=== PATIENT | male | born 1975 | race Caucasian/White ===

== ENCOUNTER 2017-01-07 03:11 | Emergency (ER) | payer MEDICAID, OTHER ==
[~2017-01-07] VITALS: Ht 185.4 cm; Wt 135.6 kg
[~2017-01-07 03:11] MED LIST: BUTA-91; LANS15CA21; RANI150C3; [UNRECOGNIZED DRUG - OTHER]
[2017-01-07 03:28] VITALS: BP 140/88
[2017-01-07 04:14] LABS: Basophils # (auto) 0.1 uL; Basophils % (auto) 0.8 % (0.0-2.0); Eosinophils # (auto) 0.4 uL; Eosinophils % (auto) 4.9 % (0.0-7.0); Hematocrit 47.5 % (41.0-53.0); Hemoglobin 16.4 g/dL (13.5-17.5); Lymphocytes # (auto) 1.9 uL; Lymphocytes % (auto) 25.9 % (10.0-50.0); Mean Corpuscular Hemoglobin 30.6 pg (28.0-32.0); Mean Corpuscular Hgb Conc. 34.5 g/dL (32.0-36.0); Mean Corpuscular Volume 88.7 fL (80.0-100.0); Mean Platelet Volume 8.6 fL (7.4-10.4); Monocytes # (auto) 0.7 uL; Monocytes % (auto) 9.4 % (0.0-12.0); Neutrophils # (auto) 4.4 uL; Platelet Count (auto) 291 10^3/uL (140-450); Red Cell Distribution Width 12.9 % (11.6-16.0); White Blood Cell 7.4 10^3/uL (4.4-10.8)
[2017-01-07 04:23] LABS: Albumin 3.9 g/dL (3.4-5.0); BUN/Creatinine Ratio 10.3; Calcium 8.8 mg/dL (8.5-10.1)
[2017-01-07 04:25] LABS: Bilirubin, Total 0.3 mg/dL (0.2-1.0); Total Protein 7.3 g/dL (6.4-8.2)
== END 2017-01-07 06:00 | disposition left against medical advice (07) ==
LOC: ER 03:17
DX: G43.909 Migraine, unspecified, not intractable, without status migrainosus (principal); Z53.21 Procedure and treatment not carried out due to patient leaving prior to being seen by health care provider; R11.2 Nausea with vomiting, unspecified
CPT/HCPCS: 36415; 80053; 85025

== ENCOUNTER 2018-11-29 10:24 | Emergency (ER) | payer OTHER ==
[~2018-11-29] VITALS: Ht 188 cm; Wt 122.5 kg
[2018-11-29 10:40] VITALS: BP 131/77
[2018-11-29] MEDS ORDERED: ACETAMINOPHEN 500 MG TAB PO ONE (11:45)
[2018-11-29] MEDS ORDERED: KETOROLAC TROMETH 60MG/2ML VIAL IM ONE (11:45)
== END 2018-11-29 12:00 | disposition home or self-care (01) ==
LOC: ER 10:24
DX: S20.211A Contusion of right front wall of thorax, initial encounter (principal); Z87.891 Personal history of nicotine dependence; Z88.6 Allergy status to analgesic agent; Z88.8 Allergy status to other drugs, medicaments and biological substances; W51.XXXA Accidental striking against or bumped into by another person, initial encounter; Y93.89 Activity, other specified; Y92.098 Other place in other non-institutional residence as the place of occurrence of the external cause; Y99.8 Other external cause status
CPT/HCPCS: 71101

== ENCOUNTER 2023-09-23 12:57 | Inpatient (IN) | payer OTHER ==
[~2023-09-23] VITALS: Ht 188 cm; Wt 127.0 kg
[~2023-09-23 12:57] MED LIST changes: -LANS15CA21; +LANS15CA37
[2023-09-23 14:02] LABS: Basophils # (auto) 0.1 10 ^3/uL (0-0.2); Basophils % (auto) 0.8 % (0.0-2.0); Eosinophils # (auto) 0.3 10 ^3/uL (0-0.8); Eosinophils % (auto) 3.5 % (0.0-7.0); Hematocrit 38.5 % (41.0-53.0); Hemoglobin 12.9 g/dL (13.5-17.5); Lymphocytes # (auto) 0.9 10 ^3/uL (0.4-5.4); Lymphocytes % (auto) 10.4 % (10.0-50.0); Mean Corpuscular Hemoglobin 33.1 pg (28.0-32.0); Mean Corpuscular Hgb Conc. 33.6 g/dL (32.0-36.0); Mean Corpuscular Volume 98.5 fL (80.0-100.0); Monocytes # (auto) 1.1 10 ^3/uL (0-1.3); Monocytes % (auto) 13.6 % (0.0-12.0); Neutrophils % (auto) 71.7 % (37.0-80.0); Red Blood Cells 3.91 10^6/uL (4.5-5.90); Red Cell Distribution Width 13.2 % (11.8-14.3); White Blood Cell 8.4 10^3/uL (4.4-10.8)
[2023-09-23 14:16] LABS: Alanine Aminotransferase 20 U/L (7-40); Albumin 3.4 g/dL (3.2-4.8); Alkaline Phosphatase 461 U/L (46-116); Anion Gap 10 (5-15); Aspartate Aminotransferase 41 U/L (13-40); BUN/Creatinine Ratio 9.9 (10.0-20.0); Blood Urea Nitrogen 30 mg/dL (9-23); Calcium 9.3 mg/dL (8.7-10.4); Carbon Dioxide 22 mmol/L (20-30); Chloride 106 mmol/L (98-107); Glucose 107 mg/dL (74-106); INR 1.09 (0.9-1.15); Lipase 29 U/L (12-53); Magnesium 1.8 mg/dL (1.6-2.6); Partial Thromboplastin Time 21.1 SEC (24.5-34.5); Potassium 4.4 mmol/L (3.5-5.1); Prothrombin Time 11.4 sec (9.3-11.8); Sodium 138 mmol/L (136-145)
[2023-09-23 14:17] LABS: Bilirubin, Total 2.1 mg/dL (0.2-1.0); Total Protein 7.5 g/dL (5.7-8.2)
[2023-09-23 14:19] LABS: Lactic Acid w/Reflex 2.1 mmol/L (0.4-2.0)
[2023-09-23] MEDS ORDERED: NITROGLYCERIN 0.4 MG SL TAB SL PRN (16:30)
[2023-09-23] MEDS ORDERED: ACETAMINOPHEN 325 MG TAB PO PRN (16:30)
[2023-09-23] MEDS ORDERED: HYDROcodone-ACET 5/325MG TAB PO PRN (16:30)
[2023-09-23] MEDS ORDERED: LACTULOSE 20Gm/30ML SOLN PO PRN (16:30)
[2023-09-23] MEDS ORDERED: ONDANSETRON HCL 4 MG/2 ML VIAL IV PRN (16:30)
[2023-09-23] MEDS ORDERED: MORPHINE SULFATE INJ 2 MG/ml SYRG IV PRN ×2 (16:30)
[2023-09-24 02:50] VITALS: PULSE 92; RESP 11; O2SAT 99
[2023-09-24 07:35] VITALS: PULSE 115; RESP 18; O2SAT 98
[2023-09-24] MEDS ORDERED: SODIUM CHLORIDE 0.9% 1,000 ML IV SCH (11:15)
[2023-09-24 11:50] LABS: Phosphorus 3.5 mg/dL (2.4-5.1)
[2023-09-24 19:05] VITALS: PULSE 102; RESP 14; O2SAT 98
[2023-09-24 20:52] LABS: Urine Epithelial Cast None Seen /hpf (<5)
[2023-09-24 21:11] LABS: Sodium Urine < 10 mmol/L (40-220)
[2023-09-24 21:16] LABS: Protein, Urine 30.7 mg/dL (0.0-11.9)
[2023-09-24 21:17] LABS: Amphetamine Screen, Urine Neg (NEGATIVE); Benzodiazephine Screen, Urine Neg (NEGATIVE)
[2023-09-24 21:18] LABS: Barbiturate Scree,Urine Neg (NEGATIVE); Cannabinoid Screen, Urine Neg (NEGATIVE); Cocaine Screen, Urine Neg (NEGATIVE); Creatinine, Urine 180.62 mg/dL (30.0-125.0); Opiate Scree,Urine Pos (NEGATIVE); Phencyclidine Screen, Urine Neg (NEGATIVE); Urine Protein/Creatinine Ratio 0.17
[2023-09-24 21:19] LABS: Urine Bacteria NONE SEEN /hpf (None Seen); Urine Blood Negative /uL (Negative); Urine Clarity Clear (Clear); Urine Color Yellow (Yellow); Urine Hyaline Cast FEW /lpf (0 - 2); Urine Protein, UAD Negative (Negative); Urine Specific Gravity 1.019 (1.001-1.035); Urine WBC <1 /hpf (0 - 3); Urine pH 5.5 (5.0-8.0)
[2023-09-25] MEDS ORDERED: HYDROcodone-ACET 5/325MG TAB PO PRN (02:00)
[2023-09-25] MEDS ORDERED: NITROGLYCERIN 0.4 MG SL TAB SL PRN (02:00)
[2023-09-25] MEDS ORDERED: ONDANSETRON HCL 4 MG/2 ML VIAL IV PRN (02:00)
[2023-09-25] MEDS ORDERED: ACETAMINOPHEN 325 MG TAB PO PRN (02:00)
[2023-09-25] MEDS ORDERED: MORPHINE SULFATE INJ 2 MG/ml SYRG IV PRN ×2 (02:00)
[2023-09-25] MEDS ORDERED: LACTULOSE 20Gm/30ML SOLN PO PRN (02:00)
[2023-09-25 08:00] VITALS: PULSE 122; RESP 16; TEMP 97.9; O2SAT 99
[2023-09-25 14:00] VITALS: BP 115/68; PULSE 116; RESP 18; O2SAT 94
== END 2023-09-25 15:44 | disposition home health service (06) | DRG 432 ==
LOC: ER 12:57 → TELE 15:44 → OVERFLOW 16:47 → TELE 22:54 → UNDODISIN 09-24 01:45
PROVIDERS: ADMIT Internal Medicine; ATTEND Internal Medicine
PROC: 0W9G3ZZ Drainage of Peritoneal Cavity, Percutaneous Approach (ICD-10-PCS; principal; 2023-09-25)
DX: K70.31 Alcoholic cirrhosis of liver with ascites (principal); G93.41 Metabolic encephalopathy; K76.7 Hepatorenal syndrome; N17.9 Acute kidney failure, unspecified; J98.11 Atelectasis; K76.82 Hepatic encephalopathy; N18.30 Chronic kidney disease, stage 3 unspecified; S09.90XA Unspecified injury of head, initial encounter; R56.9 Unspecified convulsions; E66.9 Obesity, unspecified; X58.XXXA Exposure to other specified factors, initial encounter; F17.210 Nicotine dependence, cigarettes, uncomplicated; Z88.8 Allergy status to other drugs, medicaments and biological substances; Z79.899 Other long term (current) drug therapy; Z68.35 Body mass index [BMI] 35.0-35.9, adult; Y93.89 Activity, other specified; Y92.89 Other specified places as the place of occurrence of the external cause; Y99.8 Other external cause status
CPT/HCPCS: 36415; 70450; 74176; 76775; 80053; 80307; 80320; 81001; 82140; 82306; 82550; 82570; 82962; 83605; 83690; 83735; 83970; 84100; 84156; 84300; 85025; 85610; 85730; 86850; 86900; 86901; 87040; 93005; 97163; 99291; G0378; J2405

== ENCOUNTER 2023-10-19 14:08 | Inpatient (IN) | payer OTHER, MEDICAID ==
[~2023-10-19] VITALS: Ht 177.8 cm; Wt 114.6 kg
[2023-10-19 14:33] LABS: Basophils # (auto) 0 10 ^3/uL (0-0.2); Basophils % (auto) 0.5 % (0.0-2.0); Eosinophils # (auto) 0.2 10 ^3/uL (0-0.8); Eosinophils % (auto) 3.4 % (0.0-7.0); Hematocrit 38.4 % (41.0-53.0); Hemoglobin 12.6 g/dL (13.5-17.5); Lymphocytes # (auto) 0.7 10 ^3/uL (0.4-5.4); Lymphocytes % (auto) 9.9 % (10.0-50.0); Mean Corpuscular Hgb Conc. 32.8 g/dL (32.0-36.0); Mean Corpuscular Volume 94.5 fL (80.0-100.0); Monocytes # (auto) 1.1 10 ^3/uL (0-1.3); Neutrophils % (auto) 71.2 % (37.0-80.0); Nucleated Red Blood Cells % 0.2 %; Red Blood Cells 4.07 10^6/uL (4.5-5.90); Red Cell Distribution Width 13.8 % (11.8-14.3); White Blood Cell 7.1 10^3/uL (4.4-10.8)
[2023-10-19 14:52] LABS: INR 1.22 (0.9-1.15); Prothrombin Time 12.6 sec (9.3-11.8)
[2023-10-19 14:54] LABS: Alanine Aminotransferase 13 U/L (7-40); Albumin 2.9 g/dL (3.2-4.8); Alkaline Phosphatase 391 U/L (46-116); Anion Gap 10 (5-15); Aspartate Aminotransferase 26 U/L (13-40); Blood Urea Nitrogen 27 mg/dL (9-23); Calcium 8.8 mg/dL (8.5-10.1); Carbon Dioxide 25 mmol/L (20-30); Chloride 103 mmol/L (98-107); Glucose 116 mg/dL (74-106); Potassium 3.4 mmol/L (3.5-5.1); Sodium 138 mmol/L (136-145)
[2023-10-19 14:55] LABS: Bilirubin, Total 2.7 mg/dL (0.2-1.0)
[2023-10-19] MEDS ORDERED: DOCUSATE SOD 100 MG CAP PO PRN (17:15)
[2023-10-19] MEDS ORDERED: NITROGLYCERIN 0.4 MG SL TAB SL PRN (17:15)
[2023-10-19] MEDS ORDERED: ONDANSETRON HCL 4 MG/2 ML VIAL IV PRN (17:15)
[2023-10-19] MEDS ORDERED: MORPHINE SULFATE INJ 2 MG/ml SYRG IV PRN ×2 (17:15)
[2023-10-20 00:04] LABS: Base Excess -1.2 mmol/L (-2.0-2.0)
[2023-10-20] MEDS ORDERED: NOREPINEPHRINE 8 MG/250ML KIT 250 ML IV SCH (07:30)
[2023-10-20 08:26] LABS: Hematocrit 37.7 % (41.0-53.0); Hemoglobin 12.5 g/dL (13.5-17.5); Mean Corpuscular Hemoglobin 31.3 pg (28.0-32.0); Mean Corpuscular Hgb Conc. 33.1 g/dL (32.0-36.0); Mean Corpuscular Volume 94.5 fL (80.0-100.0); Red Blood Cells 3.98 10^6/uL (4.5-5.90); Red Cell Distribution Width 13.9 % (11.8-14.3); White Blood Cell 8.8 10^3/uL (4.4-10.8)
[2023-10-20 08:29] LABS: Band Neutrophils % (manual) 0; Basophils % (manual) 0 (0.0-2.0); Blast Cells 0; Metamyelocytes % 0; Myelocytes % 0; Promyelocytes % 0; Reactive Lymphocytes 0
[2023-10-20 08:45] LABS: Alanine Aminotransferase 16 U/L (7-40); Alkaline Phosphatase 380 U/L (46-116); Anion Gap 9 (5-15); Aspartate Aminotransferase 27 U/L (13-40); BUN/Creatinine Ratio 7.6 (10.0-20.0); Blood Urea Nitrogen 23 mg/dL (9-23); Calcium 9.2 mg/dL (8.5-10.1); Carbon Dioxide 26 mmol/L (20-30); Chloride 103 mmol/L (98-107); Glucose 100 mg/dL (74-106); Sodium 138 mmol/L (136-145)
[2023-10-20 08:46] LABS: Bilirubin, Total 2.3 mg/dL (0.2-1.0); Total Protein 6.5 g/dL (5.7-8.2)
[2023-10-20 08:53] LABS: Eosinophils % (manual) 3 (0-7); Lymphocytes % (manual) 10 (10.0-50.0); Monocytes % (manual) 21 (0-12); Platelet Estimate Adequate; RBC Morphology Normal
[2023-10-20] MEDS: LACTULOSE 20Gm/30ML SOLN PO SCH (10:35)
[2023-10-20] MEDS: FUROSEMIDE 40 MG TAB PO SCH (14:23)
[2023-10-20] MEDS: ALBUMIN 25% 100 ML IV SCH (14:24)
[2023-10-20] MEDS: ALBUMIN 25% 50 ML IV SCH (14:24)
[2023-10-20 16:13] LABS: Body Fluid pH 7
[2023-10-20 18:05] LABS: Body Fluid Polymorphonuclear 4 % (0-25); Body Fluid Red Blood Cells 35 CUMM (0-2000); Body Fluid White Blood Cells 105 CUMM (0-200)
[2023-10-20] MEDS: FUROSEMIDE 40 MG/4 ML VIAL IV ONE (19:31)
[2023-10-20 20:00] VITALS: PULSE 99; RESP 15; O2SAT 99
[2023-10-20 21:20] LABS: Urine Bacteria NONE SEEN /hpf (None Seen); Urine Blood Negative /uL (Negative); Urine Clarity Clear (Clear); Urine Color Yellow (Yellow); Urine Hyaline Cast MOD /lpf (0 - 2); Urine Mucus FEW (None Seen); Urine Protein, UAD Negative (Negative); Urine Specific Gravity 1.011 (1.001-1.035); Urine Urobilinogen Normal (Negative); Urine WBC <1 /hpf (0 - 3)
[2023-10-21] MEDS: PHENYLEPHRINE IV 250 ML IV SCH (05:26)
[2023-10-21 06:15] LABS: Albumin 2.8 g/dL (3.2-4.8); Alkaline Phosphatase 273 U/L (46-116); Anion Gap 9 (5-15); BUN/Creatinine Ratio 9.7 (10.0-20.0); Blood Urea Nitrogen 24 mg/dL (9-23); Calcium 8.3 mg/dL (8.7-10.4); Carbon Dioxide 26 mmol/L (20-30); Chloride 104 mmol/L (98-107); Glucose 84 mg/dL (74-106); Sodium 139 mmol/L (136-145)
[2023-10-21 06:16] LABS: Aspartate Aminotransferase 18 U/L (13-40); Bilirubin, Total 1.8 mg/dL (0.2-1.0); Total Protein 5.7 g/dL (5.7-8.2)
[2023-10-21 06:17] LABS: Alanine Aminotransferase < 9 U/L (7-40)
[2023-10-21 08:00] VITALS: PULSE 94; RESP 14; O2SAT 95
[2023-10-21] MEDS: POTASSIUM EFFERVESENT TAB 25 MEQ PO ONE (10:59)
[2023-10-21] MEDS: HYDROcodone-ACET 5/325MG TAB PO PRN (12:24)
[2023-10-21 13:06] LABS: Protein, Body Fluid 1.6 g/dL (.)
[2023-10-21] MEDS: ACETAMINOPHEN 325 MG TAB PO PRN (15:20)
[2023-10-21 20:20] VITALS: PULSE 99; RESP 12; O2SAT 97
[2023-10-22] VITALS (9 sets, daily range): BP systolic 99–107; BP diastolic 61–74; PULSE 100–110; RESP 15–19; TEMP 97.9–98.5; O2SAT 93–96
[2023-10-22 07:04] LABS: Basophils # (auto) 0 10 ^3/uL (0-0.2); Basophils % (auto) 0.3 % (0.0-2.0); Eosinophils # (auto) 0.2 10 ^3/uL (0-0.8); Hematocrit 34.1 % (41.0-53.0); Hemoglobin 11.5 g/dL (13.5-17.5); Lymphocytes # (auto) 0.8 10 ^3/uL (0.4-5.4); Lymphocytes % (auto) 9.2 % (10.0-50.0); Mean Corpuscular Hemoglobin 31.5 pg (28.0-32.0); Mean Corpuscular Hgb Conc. 33.6 g/dL (32.0-36.0); Mean Corpuscular Volume 93.8 fL (80.0-100.0); Monocytes # (auto) 1.1 10 ^3/uL (0-1.3); Monocytes % (auto) 12.7 % (0.0-12.0); Neutrophils # (auto) 6.3 10 ^3/uL (1.6-8.6); Neutrophils % (auto) 75.8 % (37.0-80.0); Nucleated Red Blood Cells % 0.1 %; Red Blood Cells 3.64 10^6/uL (4.5-5.90); Red Cell Distribution Width 13.9 % (11.8-14.3); White Blood Cell 8.3 10^3/uL (4.4-10.8)
[2023-10-22 07:33] LABS: Albumin 2.9 g/dL (3.2-4.8); Alkaline Phosphatase 290 U/L (46-116); Anion Gap 10 (5-15); Aspartate Aminotransferase 28 U/L (13-40); BUN/Creatinine Ratio 10.5 (10.0-20.0); Blood Urea Nitrogen 20 mg/dL (9-23); Calcium 8.4 mg/dL (8.7-10.4); Carbon Dioxide 26 mmol/L (20-30); Chloride 101 mmol/L (98-107); Glucose 80 mg/dL (74-106); Magnesium 1.8 mg/dL (1.6-2.6); Potassium 3.3 mmol/L (3.5-5.1); Sodium 137 mmol/L (136-145); Total Protein 5.9 g/dL (5.7-8.2)
[2023-10-22 07:35] LABS: Alanine Aminotransferase < 9 U/L (7-40)
[2023-10-23 04:59] VITALS: BP 101/65; PULSE 114; RESP 19; TEMP 98.4; O2SAT 94
[2023-10-23 08:00] VITALS: PULSE 113; PULSE 121; O2SAT 93
[2023-10-23 08:51] VITALS: BP 107/64; PULSE 115; RESP 20; TEMP 98.4; O2SAT 93
[2023-10-23 13:00] VITALS: BP 111/70; PULSE 121; RESP 15; TEMP 98.1; O2SAT 95
[2023-10-23] MEDS ORDERED: FURO40TA4 PO (14:59)
[2023-10-23] MEDS ORDERED: SPIR50TA5 PO (14:59)
[2023-10-23 15:55] VITALS: BP 121/77; PULSE 115; RESP 17; TEMP 98.7; O2SAT 95
[2023-10-23 17:00] VITALS: BP 121/77; PULSE 115; RESP 17; TEMP 98.7; O2SAT 95
[2023-10-24 09:30] LABS: Hepatitis B Surface Antigen Negative (Negative)
[2023-10-24 09:53] LABS: Hepatitis C Antibody Negative (Negative)
== END 2023-10-23 16:45 | disposition home or self-care (01) | DRG 432 ==
LOC: ER 14:08 → EDBD 14:08 → TELE 17:58 → TELE-EAST 10-21 04:05
PROVIDERS: ADMIT Internal Medicine; ATTEND Internal Medicine
PROC: 0W9G3ZZ Drainage of Peritoneal Cavity, Percutaneous Approach (ICD-10-PCS; principal; 2023-10-20)
DX: K74.60 Unspecified cirrhosis of liver (principal); G93.41 Metabolic encephalopathy; N17.0 Acute kidney failure with tubular necrosis; E87.20 Acidosis, unspecified; K76.82 Hepatic encephalopathy; E16.2 Hypoglycemia, unspecified; F17.210 Nicotine dependence, cigarettes, uncomplicated; E66.9 Obesity, unspecified; E87.6 Hypokalemia; Z86.73 Personal history of transient ischemic attack (TIA), and cerebral infarction without residual deficits; Z68.34 Body mass index [BMI] 34.0-34.9, adult; Z88.8 Allergy status to other drugs, medicaments and biological substances; Z79.899 Other long term (current) drug therapy; Z91.199 Patient's noncompliance with other medical treatment and regimen due to unspecified reason; R74.01 Elevation of levels of liver transaminase levels
CPT/HCPCS: 36415; 36600; 71045; 76705; 76942; 80053; 81001; 82140; 82805; 83605; 83735; 83986; 85007; 85025; 85027; 85610; 85730; 86803; 87040; 87205; 87340; 89051; 93005; 99291; G0378; P9047

== ENCOUNTER → 2023-12-15 | Outpatient (CLI) | payer OTHER, MEDICAID ==
[~2023-12-15] MED LIST changes: +FURO40TA4 PO; +SPIR50TA5 PO
[2023-12-15] MEDS: ALBUMIN 25% 100 ML IV SCH (12:00)
[2023-12-15] MEDS: ALBUMIN 25% 200 ML IV ONE (12:01)
[2023-12-15 14:43] LABS: Body Fluid Polymorphonuclear 10 % (0-25); Body Fluid Red Blood Cells 18 CUMM (0-2000); Body Fluid White Blood Cells 50 CUMM (0-200)
[2023-12-16 13:06] LABS: Protein, Body Fluid 1.3 g/dL (.)
== END | disposition home or self-care (01) ==
LOC: XYW 10:24
PROVIDERS: ATTEND Internal Medicine
DX: R18.8 Other ascites (principal); F17.210 Nicotine dependence, cigarettes, uncomplicated; Z88.6 Allergy status to analgesic agent; Z88.8 Allergy status to other drugs, medicaments and biological substances; Z79.899 Other long term (current) drug therapy; Z98.890 Other specified postprocedural states; Z83.6 Family history of other diseases of the respiratory system
CPT/HCPCS: 49083; 76705; 83986; 87205; 88104; 88305; 88342; 89051; C1729; P9047; 76942

== ENCOUNTER → 2024-02-09 | Outpatient (CLI) | payer OTHER, MEDICAID ==
[2024-02-09 18:53] LABS: Body Fluid Red Blood Cells 215 CUMM (0-2000); Body Fluid White Blood Cells 38 CUMM (0-200)
[2024-02-09 18:54] LABS: Body Fluid Polymorphonuclear 20 % (0-25)
== END | disposition home or self-care (01) ==
LOC: XYW 01-10 12:47
DX: R18.8 Other ascites (principal); K74.69 Other cirrhosis of liver; K76.82 Hepatic encephalopathy; Z79.899 Other long term (current) drug therapy; Z87.891 Personal history of nicotine dependence; Z82.5 Family history of asthma and other chronic lower respiratory diseases
CPT/HCPCS: 49083; 76705; 83986; 87205; 89051; C1729; 76942

== ENCOUNTER 2024-03-06 21:48 | Inpatient (IN) | payer OTHER, MEDICAID ==
[~2024-03-06] VITALS: Ht 188 cm; Wt 115.8 kg
[2024-03-06 22:42] VITALS: PULSE 87; RESP 13; O2SAT 97
[2024-03-06 22:54] LABS: Basophils # (auto) 0.1 10 ^3/uL (0-0.2); Basophils % (auto) 1.1 % (0.0-2.0); Hemoglobin 8.2 g/dL (13.5-17.5); Lymphocytes # (auto) 0.8 10 ^3/uL (0.4-5.4); Lymphocytes % (auto) 10.9 % (10.0-50.0); Monocytes # (auto) 1.2 10 ^3/uL (0-1.3); Red Cell Distribution Width 16.4 % (11.8-14.3)
[2024-03-06 22:56] LABS: Eosinophils # (auto) 0.3 10 ^3/uL (0-0.8); Eosinophils % (auto) 4.4 % (0.0-7.0); Hematocrit 25.3 % (41.0-53.0); Mean Corpuscular Hemoglobin 29.7 pg (28.0-32.0); Mean Corpuscular Hgb Conc. 32.3 g/dL (32.0-36.0); Neutrophils # (auto) 5.2 10 ^3/uL (1.6-8.6); Neutrophils % (auto) 67.6 % (37.0-80.0); Red Blood Cells 2.75 10^6/uL (4.5-5.90); White Blood Cell 7.7 10^3/uL (4.4-10.8)
[2024-03-06 22:57] LABS: Albumin 2.9 g/dL (3.2-4.8); Alkaline Phosphatase 475 U/L (46-116); Anion Gap 5 (5-15); Aspartate Aminotransferase 19 U/L (13-40); BUN/Creatinine Ratio 11.5 (10.0-20.0); Blood Alcohol < 3.0 mg/dL (<10); Blood Urea Nitrogen 25 mg/dL (9-23); Calcium 8.7 mg/dL (8.5-10.1); Carbon Dioxide 24 mmol/L (20-30); Chloride 110 mmol/L (98-107); Glucose 153 mg/dL (74-106); Potassium 4.8 mmol/L (3.5-5.1); Sodium 139 mmol/L (136-145); Total Protein 6.1 g/dL (5.7-8.2)
[2024-03-06 23:00] LABS: Alanine Aminotransferase < 9 U/L (7-40)
[2024-03-07 01:37] LABS: INR 1.12 (0.9-1.15); Prothrombin Time 11.8 sec (9.3-11.8)
[2024-03-07] MEDS: ALBUMIN 5% 250 ML IV ONE ×4 (01:43→03:28)
[2024-03-07] MEDS: PHYTONADIONE (VIT K)10 MG/ML 1ML VIAL SUBCUT ONE (01:44)
[2024-03-07] MEDS: LACTULOSE 10g/15ml SOLN 473ML PR ONE (03:45)
[2024-03-07] MEDS: NOREPINEPHRINE 8 MG/250ML KIT 250 ML IV SCH (03:45)
[2024-03-07 04:16] LABS: Basophils # (auto) 0.1 10 ^3/uL (0-0.2); Basophils % (auto) 1.1 % (0.0-2.0); Eosinophils # (auto) 0.4 10 ^3/uL (0-0.8); Eosinophils % (auto) 5.1 % (0.0-7.0); Hematocrit 24.7 % (41.0-53.0); Hemoglobin 7.9 g/dL (13.5-17.5); Lymphocytes # (auto) 0.9 10 ^3/uL (0.4-5.4); Lymphocytes % (auto) 13.2 % (10.0-50.0); Mean Corpuscular Hemoglobin 29.5 pg (28.0-32.0); Mean Corpuscular Hgb Conc. 32.1 g/dL (32.0-36.0); Mean Corpuscular Volume 91.9 fL (80.0-100.0); Monocytes % (auto) 14.9 % (0.0-12.0); Neutrophils # (auto) 4.5 10 ^3/uL (1.6-8.6); Neutrophils % (auto) 65.7 % (37.0-80.0); Nucleated Red Blood Cells % 0.1 %; Red Blood Cells 2.69 10^6/uL (4.5-5.90); Red Cell Distribution Width 16.6 % (11.8-14.3); White Blood Cell 6.9 10^3/uL (4.4-10.8)
[2024-03-07 04:34] LABS: Albumin 2.9 g/dL (3.2-4.8); Alkaline Phosphatase 467 U/L (46-116); Anion Gap 5 (5-15); Aspartate Aminotransferase 19 U/L (13-40); BUN/Creatinine Ratio 11.4 (10.0-20.0); Blood Urea Nitrogen 23 mg/dL (9-23); Calcium 8.8 mg/dL (8.7-10.4); Carbon Dioxide 25 mmol/L (20-30); Chloride 111 mmol/L (98-107); Glucose 87 mg/dL (74-106); Potassium 4.6 mmol/L (3.5-5.1); Sodium 141 mmol/L (136-145)
[2024-03-07 04:35] LABS: Bilirubin, Total 0.9 mg/dL (0.2-1.0); Total Protein 6.2 g/dL (5.7-8.2)
[2024-03-07 04:59] LABS: Alanine Aminotransferase < 9 U/L (7-40)
[2024-03-07] MEDS: LACTULOSE 10g/15ml SOLN 473ML PR SCH (06:00)
[2024-03-07 07:52] VITALS: PULSE 67; RESP 15; O2SAT 98
[2024-03-07] MEDS: LACTULOSE 20Gm/30ML SOLN PO ONE (10:09)
[2024-03-07] MEDS: LACTULOSE 20Gm/30ML SOLN PO SCH (14:00)
[2024-03-07 19:15] VITALS: PULSE 67; RESP 15; O2SAT 98
[2024-03-08 05:26] LABS: Albumin 2.9 g/dL (3.2-4.8); Alkaline Phosphatase 453 U/L (46-116); Anion Gap 6 (5-15); Aspartate Aminotransferase 23 U/L (13-40); BUN/Creatinine Ratio 10.6 (10.0-20.0); Bilirubin, Total 1.6 mg/dL (0.2-1.0); Blood Urea Nitrogen 18 mg/dL (9-23); Calcium 9.1 mg/dL (8.7-10.4); Carbon Dioxide 23 mmol/L (20-30); Chloride 112 mmol/L (98-107); Glucose 106 mg/dL (74-106); Potassium 4.5 mmol/L (3.5-5.1); Sodium 141 mmol/L (136-145); Total Protein 5.9 g/dL (5.7-8.2)
[2024-03-08 05:40] LABS: Eosinophils # (auto) 0.4 10 ^3/uL (0-0.8)
[2024-03-08 05:42] LABS: Basophils # (auto) 0.1 10 ^3/uL (0-0.2); Basophils % (auto) 0.7 % (0.0-2.0); Eosinophils % (auto) 4.4 % (0.0-7.0); Hematocrit 25.5 % (41.0-53.0); Hemoglobin 8.2 g/dL (13.5-17.5); Lymphocytes # (auto) 0.8 10 ^3/uL (0.4-5.4); Lymphocytes % (auto) 9.2 % (10.0-50.0); Mean Corpuscular Hemoglobin 29.8 pg (28.0-32.0); Monocytes # (auto) 1.3 10 ^3/uL (0-1.3); Monocytes % (auto) 15.3 % (0.0-12.0); Neutrophils # (auto) 6.1 10 ^3/uL (1.6-8.6); Neutrophils % (auto) 70.4 % (37.0-80.0); Nucleated Red Blood Cells % 0.1 %; Red Blood Cells 2.74 10^6/uL (4.5-5.90); Red Cell Distribution Width 16.8 % (11.8-14.3); White Blood Cell 8.6 10^3/uL (4.4-10.8)
[2024-03-08 05:43] LABS: Alanine Aminotransferase < 9 U/L (7-40)
[2024-03-08 08:00] VITALS: PULSE 102; RESP 14; O2SAT 97
[2024-03-08 19:43] VITALS: PULSE 88; RESP 20; O2SAT 94
[2024-03-08 21:07] VITALS: BP 118/75; PULSE 111; RESP 20; TEMP 98; O2SAT 96
[2024-03-08] MEDS ORDERED: ZOFR4T PO (22:17)
[2024-03-08] MEDS ORDERED: LACT10SO3 PO (22:17)
[2024-03-08] MEDS ORDERED: OMEP-434 PO (22:17)
[2024-03-09] VITALS (7 sets, daily range): BP systolic 95–120; BP diastolic 73–75; PULSE 100–111; RESP 20; TEMP 97.7–98.1; O2SAT 94–98
[2024-03-09 05:08] LABS: Basophils # (auto) 0.1 10 ^3/uL (0-0.2); Eosinophils # (auto) 0.4 10 ^3/uL (0-0.8); Hemoglobin 8.2 g/dL (13.5-17.5); Lymphocytes % (auto) 13.9 % (10.0-50.0)
[2024-03-09 05:09] LABS: Basophils % (auto) 1.4 % (0.0-2.0); Eosinophils % (auto) 5.5 % (0.0-7.0); Hematocrit 25.1 % (41.0-53.0); Mean Corpuscular Hemoglobin 29.7 pg (28.0-32.0); Mean Corpuscular Hgb Conc. 32.6 g/dL (32.0-36.0); Mean Corpuscular Volume 91.2 fL (80.0-100.0); Monocytes # (auto) 1.3 10 ^3/uL (0-1.3); Monocytes % (auto) 17.9 % (0.0-12.0); Neutrophils # (auto) 4.5 10 ^3/uL (1.6-8.6); Neutrophils % (auto) 61.3 % (37.0-80.0); Red Blood Cells 2.75 10^6/uL (4.5-5.90); Red Cell Distribution Width 16.1 % (11.8-14.3); White Blood Cell 7.3 10^3/uL (4.4-10.8)
[2024-03-09 05:25] LABS: Albumin 2.8 g/dL (3.2-4.8); Alkaline Phosphatase 441 U/L (46-116); Anion Gap 5 (5-15); Aspartate Aminotransferase 20 U/L (13-40); BUN/Creatinine Ratio 11.6 (10.0-20.0); Blood Urea Nitrogen 17 mg/dL (9-23); Calcium 9.4 mg/dL (8.7-10.4); Carbon Dioxide 25 mmol/L (20-30); Chloride 114 mmol/L (98-107); Glucose 89 mg/dL (74-106); Potassium 4.6 mmol/L (3.5-5.1); Sodium 144 mmol/L (136-145)
[2024-03-09 05:26] LABS: Bilirubin, Total 1.8 mg/dL (0.2-1.0); Total Protein 5.7 g/dL (5.7-8.2)
[2024-03-09 05:37] LABS: Alanine Aminotransferase 9 U/L (7-40)
[2024-03-09] MEDS: FUROSEMIDE 20 MG TAB PO SCH (11:21)
[2024-03-09] MEDS: SPIRONOLACTONE 25 MG TAB PO SCH (11:21)
[2024-03-09] MEDS: ONDANSETRON HCL 4 MG/2 ML VIAL IV PRN (14:11)
== END 2024-03-09 20:36 | disposition home or self-care (01) | DRG 441 ==
LOC: EDBD 21:48 → ER 21:48 → OVERFLOW 03-07 07:07 → OBSVTOIN 03-07 12:57 → TELE-EAST 03-08 20:15
PROVIDERS: ADMIT Internal Medicine; ATTEND Internal Medicine
DX: K76.82 Hepatic encephalopathy (principal); G93.41 Metabolic encephalopathy; R18.8 Other ascites; K74.60 Unspecified cirrhosis of liver; R56.9 Unspecified convulsions; F17.200 Nicotine dependence, unspecified, uncomplicated; J44.9 Chronic obstructive pulmonary disease, unspecified; Z88.8 Allergy status to other drugs, medicaments and biological substances; Z79.84 Long term (current) use of oral hypoglycemic drugs; Z79.899 Other long term (current) drug therapy; Z86.73 Personal history of transient ischemic attack (TIA), and cerebral infarction without residual deficits; Z82.5 Family history of asthma and other chronic lower respiratory diseases
CPT/HCPCS: 36415; 49082; 70450; 80053; 80320; 82140; 82962; 82977; 85025; 85610; 87081; 93005; G0378; J2405; J3430

== ENCOUNTER 2024-03-30 11:19 | Inpatient (IN) | payer OTHER, MEDICAID ==
[~2024-03-30] VITALS: Ht 188 cm; Wt 119.3 kg
[~2024-03-30 11:19] MED LIST changes: -BUTA-91; +LACT10SO3 PO; -LANS15CA37; +OMEP-434 PO; -RANI150C3; +ZOFR4T PO; -[UNRECOGNIZED DRUG - OTHER]
[2024-03-30 11:58] VITALS: PULSE 87; RESP 20; O2SAT 100
[2024-03-30] MEDS: LACTULOSE 20Gm/30ML SOLN PO ONE (12:24)
[2024-03-30 13:22] LABS: Basophils # (auto) 0.1 10 ^3/uL (0-0.2); Basophils % (auto) 0.8 % (0.0-2.0); Eosinophils # (auto) 0.3 10 ^3/uL (0-0.8); Eosinophils % (auto) 3.1 % (0.0-7.0); Hematocrit 27.3 % (41.0-53.0); Hemoglobin 8.9 g/dL (13.5-17.5); Lymphocytes # (auto) 0.7 10 ^3/uL (0.4-5.4); Lymphocytes % (auto) 8.6 % (10.0-50.0); Mean Corpuscular Hemoglobin 29.2 pg (28.0-32.0); Mean Corpuscular Hgb Conc. 32.7 g/dL (32.0-36.0); Mean Corpuscular Volume 89.2 fL (80.0-100.0); Monocytes # (auto) 1.2 10 ^3/uL (0-1.3); Monocytes % (auto) 14.1 % (0.0-12.0); Neutrophils # (auto) 6.2 10 ^3/uL (1.6-8.6); Neutrophils % (auto) 73.4 % (37.0-80.0); Nucleated Red Blood Cells % 0.1 %; Red Blood Cells 3.06 10^6/uL (4.5-5.90); Red Cell Distribution Width 14.5 % (11.8-14.3); White Blood Cell 8.5 10^3/uL (4.4-10.8)
[2024-03-30 13:40] LABS: Albumin 3.1 g/dL (3.2-4.8); Alkaline Phosphatase 534 U/L (46-116); Anion Gap 8 (5-15); Aspartate Aminotransferase 19 U/L (13-40); BUN/Creatinine Ratio 11.9 (10.0-20.0); Blood Alcohol < 3.0 mg/dL (<10); Blood Urea Nitrogen 23 mg/dL (9-23); Carbon Dioxide 24 mmol/L (20-30); Chloride 110 mmol/L (98-107); Glucose 103 mg/dL (74-106); INR 1.13 (0.9-1.15); Partial Thromboplastin Time 28.5 SEC (24.5-34.5); Potassium 4.7 mmol/L (3.5-5.1); Prothrombin Time 11.9 sec (9.3-11.8); Sodium 142 mmol/L (136-145)
[2024-03-30 13:41] LABS: Bilirubin, Total 2.1 mg/dL (0.2-1.0)
[2024-03-30 13:44] LABS: Alanine Aminotransferase < 9 U/L (7-40)
[2024-03-30] MEDS ORDERED: ONDANSETRON HCL 4 MG/2 ML VIAL IV PRN (17:45)
[2024-03-30] MEDS ORDERED: MORPHINE SULFATE INJ 2 MG/ml SYRG IV PRN (17:45)
[2024-03-30] MEDS ORDERED: LORazepam 2MG/ML-1ML VIAL IV PRN (17:45)
[2024-03-30] MEDS ORDERED: DEXTROSE (50%) 50ML SYRG IV PRN (17:45)
[2024-03-30] MEDS ORDERED: NITROGLYCERIN 0.4 MG SL TAB SL PRN (17:45)
[2024-03-30] MEDS: InsuLIN REG 1unit/0.01ml Soln (100units/ml) SC SCH (18:00)
[2024-03-30] MEDS: D5W/LACTATED RINGERS 1,000 ML IV SCH (18:15)
[2024-03-30] MEDS: ACCU-CHEK COMFORT CURVE STRIP VI SCH (18:17)
[2024-03-30 20:04] VITALS: PULSE 94; RESP 16; O2SAT 97
[2024-03-31 02:01] LABS: Amphetamine Screen, Urine Neg (NEGATIVE); Barbiturate Scree,Urine Neg (NEGATIVE); Benzodiazephine Screen, Urine Neg (NEGATIVE); Cannabinoid Screen, Urine Neg (NEGATIVE); Cocaine Screen, Urine Neg (NEGATIVE); Opiate Scree,Urine Neg (NEGATIVE); Phencyclidine Screen, Urine Neg (NEGATIVE)
[2024-03-31 02:27] LABS: Urine Bacteria FEW /hpf (None Seen); Urine Blood 3+ /uL (Negative); Urine Clarity Clear (Clear); Urine Color Light-Yellow (Yellow); Urine Protein, UAD Negative (Negative); Urine Urobilinogen Normal (Negative); Urine WBC 7 /hpf (0 - 3)
[2024-03-31 03:51] LABS: Basophils # (auto) 0.1 10 ^3/uL (0-0.2); Basophils % (auto) 1.8 % (0.0-2.0); Eosinophils # (auto) 0.4 10 ^3/uL (0-0.8); Eosinophils % (auto) 4.5 % (0.0-7.0); Hematocrit 26.3 % (41.0-53.0); Hemoglobin 8.7 g/dL (13.5-17.5); Lymphocytes # (auto) 0.6 10 ^3/uL (0.4-5.4); Lymphocytes % (auto) 8.1 % (10.0-50.0); Mean Corpuscular Hemoglobin 29.4 pg (28.0-32.0); Monocytes # (auto) 0.7 10 ^3/uL (0-1.3); Monocytes % (auto) 9.2 % (0.0-12.0); Neutrophils # (auto) 6.1 10 ^3/uL (1.6-8.6); Neutrophils % (auto) 76.4 % (37.0-80.0); Red Blood Cells 2.95 10^6/uL (4.5-5.90); Red Cell Distribution Width 14.8 % (11.8-14.3); White Blood Cell 7.9 10^3/uL (4.4-10.8)
[2024-03-31 04:20] LABS: Anion Gap 10 (5-15); Carbon Dioxide 24 mmol/L (20-30); Chloride 108 mmol/L (98-107); Potassium 4.9 mmol/L (3.5-5.1); Sodium 142 mmol/L (136-145)
[2024-03-31 04:21] LABS: Calcium 9.2 mg/dL (8.7-10.4)
[2024-03-31 04:26] LABS: BUN/Creatinine Ratio 9.5 (10.0-20.0); Blood Urea Nitrogen 18 mg/dL (9-23); Glucose 102 mg/dL (74-106)
[2024-03-31 07:40] VITALS: PULSE 65; RESP 17; O2SAT 99
[2024-03-31] MEDS: cefTRIAXone 1GM/50ML D5W 50 ML IV SCH (09:39)
[2024-03-31] MEDS: FAMOTIDINE (10MG/ML) 2ML VL IV SCH (09:39)
[2024-03-31 10:07] LABS: % Iron Saturation 27.8 % (20-55)
[2024-03-31] MEDS: ALBUMIN 25% 100 ML IV SCH (12:24)
[2024-03-31] MEDS: ACETAMINOPHEN 325 MG TAB PO PRN (19:06)
[2024-03-31 19:20] VITALS: PULSE 102; RESP 20; O2SAT 98
[2024-03-31 23:08] VITALS: BP 116/70; PULSE 105; RESP 20; TEMP 97.9; O2SAT 100
[2024-04-01] VITALS (8 sets, daily range): BP systolic 92–123; BP diastolic 60–79; PULSE 89–107; RESP 16–20; TEMP 97.8–98.2; O2SAT 97–100
[2024-04-01] MEDS: MORPHINE SULFATE INJ 2 MG/ml SYRG IV PRN (00:15)
[2024-04-01] MEDS ORDERED: SPIR100T4 PO (00:23)
[2024-04-01] MEDS ORDERED: PROP1TAB51 PO (00:23)
[2024-04-01] MEDS ORDERED: ACE3T PO (00:23)
[2024-04-01 06:08] LABS: Basophils # (auto) 0.1 10 ^3/uL (0-0.2); Basophils % (auto) 1.2 % (0.0-2.0); Eosinophils # (auto) 0.3 10 ^3/uL (0-0.8); Monocytes # (auto) 0.9 10 ^3/uL (0-1.3)
[2024-04-01 06:09] LABS: Chloride 109 mmol/L (98-107); Potassium 4.2 mmol/L (3.5-5.1); Sodium 144 mmol/L (136-145)
[2024-04-01 06:10] LABS: Anion Gap 11 (5-15); Calcium 9.2 mg/dL (8.7-10.4); Carbon Dioxide 24 mmol/L (20-30)
[2024-04-01 06:12] LABS: Eosinophils % (auto) 4.2 % (0.0-7.0); Hematocrit 23.7 % (41.0-53.0); Hemoglobin 7.9 g/dL (13.5-17.5); Lymphocytes # (auto) 0.6 10 ^3/uL (0.4-5.4); Lymphocytes % (auto) 9.6 % (10.0-50.0); Mean Corpuscular Hemoglobin 29.8 pg (28.0-32.0); Mean Corpuscular Hgb Conc. 33.4 g/dL (32.0-36.0); Mean Corpuscular Volume 89.1 fL (80.0-100.0); Monocytes % (auto) 13.3 % (0.0-12.0); Neutrophils # (auto) 4.7 10 ^3/uL (1.6-8.6); Neutrophils % (auto) 71.7 % (37.0-80.0); Red Blood Cells 2.65 10^6/uL (4.5-5.90); Red Cell Distribution Width 14.5 % (11.8-14.3); White Blood Cell 6.6 10^3/uL (4.4-10.8)
[2024-04-01 06:15] LABS: BUN/Creatinine Ratio 9.6 (10.0-20.0); Blood Urea Nitrogen 17 mg/dL (9-23); Glucose 95 mg/dL (74-106)
[2024-04-01 06:26] LABS: INR 1.15 (0.9-1.15); Prothrombin Time 12.1 sec (9.3-11.8)
[2024-04-01] MEDS: HYDROcodone-ACET 5/325MG TAB PO PRN (10:15)
[2024-04-01] MEDS: HYDROcodone-ACET 10/325MG TAB PO PRN (16:05)
[2024-04-01] MEDS: FERROUS SULFATE 325mg EC TAB PO SCH (18:15)
[2024-04-02 01:00] VITALS: BP 109/73; PULSE 89; RESP 17; TEMP 97.8; O2SAT 97
[2024-04-02 05:00] VITALS: BP 110/67; PULSE 93; RESP 17; TEMP 98; O2SAT 97
[2024-04-02 05:31] LABS: Chloride 106 mmol/L (98-107); Potassium 3.9 mmol/L (3.5-5.1); Sodium 139 mmol/L (136-145)
[2024-04-02 05:32] LABS: Anion Gap 10 (5-15); Calcium 8.8 mg/dL (8.7-10.4); Carbon Dioxide 23 mmol/L (20-30)
[2024-04-02 05:37] LABS: BUN/Creatinine Ratio 8.9 (10.0-20.0); Blood Urea Nitrogen 14 mg/dL (9-23); Glucose 85 mg/dL (74-106)
[2024-04-02 08:00] VITALS: PULSE 71
[2024-04-02 09:08] VITALS: BP 115/81; PULSE 109; RESP 17; TEMP 98.2; O2SAT 98
[2024-04-02 11:23] LABS: Body Fluid Polymorphonuclear 16 % (0-25); Body Fluid Red Blood Cells 1025 CUMM (0-2000); Body Fluid White Blood Cells 80 CUMM (0-200)
[2024-04-02] MEDS: ALBUMIN 25% 100 ML IV ONE (12:37)
[2024-04-02 13:00] VITALS: BP 100/64; PULSE 104; RESP 15; TEMP 98; O2SAT 100
[2024-04-02 16:57] VITALS: BP 131/72; PULSE 91; RESP 19; TEMP 97.9; O2SAT 94
[2024-04-02] MEDS: PNEUMOCOCCAL VACC POLYS 25 MCG/0.5 ML VIAL IM ONE (18:28)
[2024-04-03] MEDS ORDERED: PNEUMOCOCCAL VACC POLYS 25 MCG/0.5 ML VIAL IM SCH
== END 2024-04-02 18:30 | disposition home health service (06) | DRG 442 ==
LOC: ER 11:19 → EDBD 11:19 → TELE 17:40 → TELE-WESTW 03-31 23:00
PROVIDERS: ADMIT Hospitalist; ATTEND Hospitalist
PROC: 0W9G3ZZ Drainage of Peritoneal Cavity, Percutaneous Approach (ICD-10-PCS; principal; 2024-04-02)
DX: K76.82 Hepatic encephalopathy (principal); N39.0 Urinary tract infection, site not specified; R18.8 Other ascites; K74.60 Unspecified cirrhosis of liver; F17.200 Nicotine dependence, unspecified, uncomplicated; I12.9 Hypertensive chronic kidney disease with stage 1 through stage 4 chronic kidney disease, or unspecified chronic kidney disease; N18.32 Chronic kidney disease, stage 3b; J44.9 Chronic obstructive pulmonary disease, unspecified; E88.09 Other disorders of plasma-protein metabolism, not elsewhere classified; Z86.73 Personal history of transient ischemic attack (TIA), and cerebral infarction without residual deficits; Z88.8 Allergy status to other drugs, medicaments and biological substances; Z79.899 Other long term (current) drug therapy; Z82.5 Family history of asthma and other chronic lower respiratory diseases; Z82.49 Family history of ischemic heart disease and other diseases of the circulatory system; Z23 Encounter for immunization; D50.0 Iron deficiency anemia secondary to blood loss (chronic)
CPT/HCPCS: 36415; 36600; 49083; 70450; 70551; 71045; 74176; 76705; 76942; 80048; 80053; 80307; 80320; 81001; 82140; 82728; 82805; 82962; 83540; 83550; 83605; 83880; 83986; 85025; 85610; 85730; 87040; 87081; 87086; 87205; 89051; 96365; 96367; 96375; 97163; G0378; J3490; P9047

== ENCOUNTER 2024-04-16 09:06 | Inpatient (IN) | payer OTHER, MEDICAID ==
[~2024-04-16] VITALS: Ht 182.9 cm; Wt 110.0 kg
[~2024-04-16 09:06] MED LIST changes: +ACE3T PO; +PROP1TAB51 PO
[2024-04-16 09:59] LABS: Basophils # (auto) 0.1 10 ^3/uL (0-0.2); Eosinophils # (auto) 0.6 10 ^3/uL (0-0.8); Hematocrit 24.6 % (41.0-53.0); Hemoglobin 8.2 g/dL (13.5-17.5); Lymphocytes # (auto) 1.1 10 ^3/uL (0.4-5.4); Mean Corpuscular Hemoglobin 28.9 pg (28.0-32.0); Mean Corpuscular Hgb Conc. 33.2 g/dL (32.0-36.0); Mean Corpuscular Volume 87.2 fL (80.0-100.0); Monocytes # (auto) 1.2 10 ^3/uL (0-1.3); Nucleated Red Blood Cells % 0.1 %
[2024-04-16 10:03] LABS: Lymphocytes % (auto) 15.5 % (10.0-50.0); Monocytes % (auto) 16.2 % (0.0-12.0); Neutrophils # (auto) 4.4 10 ^3/uL (1.6-8.6); Neutrophils % (auto) 59.3 % (37.0-80.0); Red Blood Cells 2.82 10^6/uL (4.5-5.90); White Blood Cell 7.4 10^3/uL (4.4-10.8)
[2024-04-16 10:18] LABS: Albumin 3.1 g/dL (3.2-4.8); Alkaline Phosphatase 504 U/L (46-116); Anion Gap 7 (5-15); Aspartate Aminotransferase 19 U/L (13-40); Blood Alcohol < 3.0 mg/dL (<10); Blood Urea Nitrogen 40 mg/dL (9-23); Calcium 8.5 mg/dL (8.7-10.4); Carbon Dioxide 24 mmol/L (20-30); Chloride 108 mmol/L (98-107); Glucose 87 mg/dL (74-106); Sodium 139 mmol/L (136-145)
[2024-04-16 10:19] LABS: Total Protein 5.7 g/dL (5.7-8.2)
[2024-04-16 10:40] LABS: INR 1.11 (0.9-1.15); Partial Thromboplastin Time 30.1 SEC (24.5-34.5); Prothrombin Time 11.7 sec (9.3-11.8)
[2024-04-16 10:46] LABS: Potassium 6.2 mmol/L (3.5-5.1)
[2024-04-16 11:17] VITALS: PULSE 77; RESP 12; O2SAT 97
[2024-04-16 11:48] LABS: Alanine Aminotransferase < 9 U/L (7-40)
[2024-04-16] MEDS: SODIUM ZIRCONIUM CYCL 10 GM PAK PO ONE (12:00)
[2024-04-16] MEDS: CALCIUM GLUC 1,000mg/50ml-NS 50 ML IV ONE (12:11)
[2024-04-16] MEDS: DEXTROSE (50%) 50ML SYRG IV ONE (12:11)
[2024-04-16] MEDS: SODIUM BICARB 8.4% 50Meq/50ml SYR INJ IV ONE (12:16)
[2024-04-16] MEDS: InsuLIN REG 1unit/0.01ml Soln (100units/ml) IV ONE (12:33)
[2024-04-16] MEDS: ALBUTEROL SULF 2.5 MG/0.5ML(0.5%) NEB SOLN NEB ONE (12:45)
[2024-04-16] MEDS: FUROSEMIDE 20 MG/2 ML VIAL IV ONE (12:52)
[2024-04-16 13:01] LABS: BUN/Creatinine Ratio 13.7 (10.0-20.0)
[2024-04-16 13:07] LABS: Urine Bacteria None Seen /hpf (None Seen); Urine WBC None Seen /hpf (0 - 3)
[2024-04-16 13:22] LABS: Urine Blood Negative /uL (Negative); Urine Clarity Clear (Clear); Urine Color Light-Yellow (Yellow); Urine Protein, UAD Negative (Negative); Urine Specific Gravity 1.011 (1.001-1.035); Urine Urobilinogen Normal (Negative); Urine pH 7.5 (5.0-9.0)
[2024-04-16] MEDS: LACTULOSE 10g/15ml SOLN 473ML PR SCH (13:40)
[2024-04-16] MEDS ORDERED: MORPHINE SULFATE INJ 2 MG/ml SYRG IV PRN (14:15)
[2024-04-16] MEDS ORDERED: NITROGLYCERIN 0.4 MG SL TAB SL PRN (14:15)
[2024-04-16] MEDS: ALBUMIN 25% 100 ML IV SCH ×2 (14:58→22:02)
[2024-04-16] MEDS: D5W/SOD CHL 0.45% 1,000 ML IV SCH (14:58)
[2024-04-16 15:58] LABS: Creatinine, Urine 44.7 mg/dL (30.0-125.0)
[2024-04-16 17:24] LABS: Body Fluid Polymorphonuclear 54 % (0-25); Body Fluid Red Blood Cells 8750 CUMM (0-2000); Body Fluid White Blood Cells 50 CUMM (0-200)
[2024-04-16 17:31] LABS: Chloride 107 mmol/L (98-107); Potassium 5.1 mmol/L (3.5-5.1); Sodium 141 mmol/L (136-145)
[2024-04-16 17:33] LABS: Calcium 9.1 mg/dL (8.7-10.4)
[2024-04-16 17:37] LABS: Glucose 85 mg/dL (74-106)
[2024-04-16 17:38] LABS: BUN/Creatinine Ratio 11.8 (10.0-20.0); Blood Urea Nitrogen 34 mg/dL (9-23); Magnesium 1.6 mg/dL (1.6-2.6)
[2024-04-16 17:58] LABS: Magnesium 1.7 mg/dL (1.6-2.6)
[2024-04-16 18:00] LABS: Phosphorus 4.4 mg/dL (2.4-5.1)
[2024-04-16 18:04] LABS: Anion Gap 12 (5-15); Carbon Dioxide 22 mmol/L (20-30)
[2024-04-16 20:50] LABS: Amphetamine Screen, Urine Neg (NEGATIVE); Barbiturate Scree,Urine Neg (NEGATIVE); Benzodiazephine Screen, Urine Neg (NEGATIVE); Cocaine Screen, Urine Neg (NEGATIVE)
[2024-04-16 20:51] LABS: Cannabinoid Screen, Urine Neg (NEGATIVE); Opiate Scree,Urine Pos (NEGATIVE); Phencyclidine Screen, Urine Neg (NEGATIVE)
[2024-04-16] MEDS: PANTOPRAZOLE 40 MG/10 ML VIAL INJ IV SCH (22:04)
[2024-04-17 05:15] LABS: Basophils # (auto) 0.1 10 ^3/uL (0-0.2); Basophils % (auto) 0.9 % (0.0-2.0); Eosinophils # (auto) 0.4 10 ^3/uL (0-0.8); Eosinophils % (auto) 4.7 % (0.0-7.0); Hematocrit 21.7 % (41.0-53.0); Hemoglobin 7.2 g/dL (13.5-17.5); Lymphocytes % (auto) 12.8 % (10.0-50.0); Mean Corpuscular Hemoglobin 29.1 pg (28.0-32.0); Mean Corpuscular Volume 88.3 fL (80.0-100.0); Monocytes % (auto) 13.8 % (0.0-12.0); Neutrophils # (auto) 5.1 10 ^3/uL (1.6-8.6); Neutrophils % (auto) 67.8 % (37.0-80.0); Red Blood Cells 2.46 10^6/uL (4.5-5.90); Red Cell Distribution Width 15.3 % (11.8-14.3); White Blood Cell 7.6 10^3/uL (4.4-10.8)
[2024-04-17 05:38] LABS: Albumin 3.3 g/dL (3.2-4.8); Alkaline Phosphatase 367 U/L (46-116); Anion Gap 9 (5-15); Aspartate Aminotransferase 13 U/L (13-40); BUN/Creatinine Ratio 11.9 (10.0-20.0); Blood Urea Nitrogen 32 mg/dL (9-23); Calcium 8.9 mg/dL (8.7-10.4); Carbon Dioxide 23 mmol/L (20-30); Chloride 109 mmol/L (98-107); Glucose 78 mg/dL (74-106); Potassium 5.1 mmol/L (3.5-5.1); Sodium 141 mmol/L (136-145)
[2024-04-17 05:39] LABS: Bilirubin, Total 1.3 mg/dL (0.2-1.0); Total Protein 6.1 g/dL (5.7-8.2)
[2024-04-17 05:56] LABS: Alanine Aminotransferase < 9 U/L (7-40)
[2024-04-17 07:44] VITALS: PULSE 98; RESP 20; O2SAT 97
[2024-04-17] MEDS: ONDANSETRON HCL 4 MG/2 ML VIAL IV PRN (12:34)
[2024-04-17] MEDS: HYDROcodone-ACET 5/325MG TAB PO PRN (12:34)
[2024-04-17] MEDS: LACTULOSE 20Gm/30ML SOLN PO SCH (14:49)
[2024-04-17] MEDS ORDERED: LACT10SO3 PO (14:58)
[2024-04-17 16:54] VITALS: BP 128/68; PULSE 82; RESP 18; TEMP 98.2; O2SAT 96
[2024-04-17 17:19] VITALS: BP 107/70; PULSE 100; RESP 21; TEMP 97.9; O2SAT 100
[2024-04-17] MEDS ORDERED: ERGOCALCIFEROL 50,000 UNIT(1.25MG) CAP PO SCH (19:15)
[2024-04-17 20:00] LABS: % Iron Saturation 33.6 % (20-55)
[2024-04-18 12:47] LABS: Protein, Body Fluid 1.5 g/dL (.)
== END 2024-04-17 17:20 | disposition home health service (06) | DRG 442 ==
LOC: EDBD 09:06 → ER 09:15 → TELE 14:06
PROVIDERS: ADMIT Hospitalist; ATTEND Hospitalist
PROC: 0W9G3ZZ Drainage of Peritoneal Cavity, Percutaneous Approach (ICD-10-PCS; principal; 2024-04-16)
DX: K76.82 Hepatic encephalopathy (principal); N17.9 Acute kidney failure, unspecified; R18.8 Other ascites; E87.5 Hyperkalemia; K74.60 Unspecified cirrhosis of liver; N18.30 Chronic kidney disease, stage 3 unspecified; I12.9 Hypertensive chronic kidney disease with stage 1 through stage 4 chronic kidney disease, or unspecified chronic kidney disease; E11.22 Type 2 diabetes mellitus with diabetic chronic kidney disease; Z86.73 Personal history of transient ischemic attack (TIA), and cerebral infarction without residual deficits; Z82.49 Family history of ischemic heart disease and other diseases of the circulatory system
CPT/HCPCS: 36415; 49083; 70450; 76775; 76942; 80048; 80053; 80061; 80307; 80320; 81001; 82140; 82306; 82570; 82607; 82728; 82962; 83036; 83540; 83550; 83605; 83615; 83735; 83986; 84100; 84132; 84300; 84443; 84484; 85025; 85610; 85730; 87040; 87205; 89051; 93005; 93306; 94640; 96365; 96375; G0378; J1815; J2405; J2470; P9047

== ENCOUNTER → 2024-04-24 | Outpatient (CLI) | payer OTHER, MEDICAID ==
[~2024-04-24] MED LIST changes: -SPIR50TA5 PO
[2024-04-24 12:52] LABS: Body Fluid White Blood Cells 53 CUMM (0-200)
[2024-04-24 12:53] LABS: Body Fluid Polymorphonuclear 40 % (0-25); Body Fluid Red Blood Cells 1800 CUMM (0-2000)
[2024-04-25 13:06] LABS: Protein, Body Fluid 1.8 g/dL (.)
== END | disposition home or self-care (01) ==
LOC: XYW 04-23 13:10
DX: R18.8 Other ascites (principal); I10 Essential (primary) hypertension; J44.9 Chronic obstructive pulmonary disease, unspecified; Z98.890 Other specified postprocedural states; Z88.6 Allergy status to analgesic agent; Z88.8 Allergy status to other drugs, medicaments and biological substances; Z87.891 Personal history of nicotine dependence; Z82.49 Family history of ischemic heart disease and other diseases of the circulatory system
CPT/HCPCS: 49083; 83986; 87205; 89051; C1729; 76705; 76942

== ENCOUNTER → 2024-05-31 | Outpatient (CLI) | payer OTHER, MEDICAID | END | disposition home or self-care (01) | LOC: XYW 10:56 | DX: R18.8 Other ascites (principal) | CPT/HCPCS: 76705 ==

== ENCOUNTER → 2024-06-15 | Outpatient (CLI) | payer OTHER, MEDICAID ==
--- NOTE | 2024-06-15 11:27 | DVH ---
INDICATION: Fluid check.. TECHNIQUE: Multiple real-time sonographic images of the abdomen were obtained. COMPARISON: US ABDOMEN LIMITED on DOS: 05/31/24, US ABDOMEN LIMITED on DOS: 05/15/24 IMPRESSION: 1. There is ascites fluid seen in all 4 quadrants of the abdomen. HS:Y
== END | disposition home or self-care (01) ==
LOC: XYW 10:53
DX: R18.8 Other ascites (principal); K74.69 Other cirrhosis of liver; K76.82 Hepatic encephalopathy
CPT/HCPCS: 76705

== ENCOUNTER 2024-08-03 11:01 | Inpatient (IN) | payer OTHER, MEDICAID ==
[2024-08-03] VITALS (24 sets, daily range): BP systolic 97–123; BP diastolic 59–86; PULSE 72–121; RESP 9–24; TEMP 96.8–98.5; O2SAT 97–100
[~2024-08-03] VITALS: Ht 203.2 cm; Wt 93.3 kg
[2024-08-03] MEDS: ROCURONIUM 10MG/ML 10ML VIAL IV ONE ×2 (10:30→11:30)
[2024-08-03] MEDS: PROPOFOL 100 ML IV ONE (11:17)
[2024-08-03] MEDS: ETOMIDATE (2MG/ML) 20ML VIAL IV ONE ×2 (11:30→13:00)
[2024-08-03 11:36] LABS: Hematocrit 29.4 % (41.0-53.0); Hemoglobin 9.7 g/dL (13.5-17.5); Mean Corpuscular Hemoglobin 28.9 pg (28.0-32.0); Mean Corpuscular Volume 87.6 fL (80.0-100.0); Platelet Count (auto) 233 10^3/uL (140-450); Red Blood Cells 3.35 10^6/uL (4.5-5.90); Red Cell Distribution Width 16.6 % (11.8-14.3); White Blood Cell 6.8 10^3/uL (4.4-10.8)
[2024-08-03 11:43] LABS: Band Neutrophils % (manual) 0; Basophils % (manual) 0 (0.0-2.0); Blast Cells 0; Metamyelocytes % 0; Myelocytes % 0; Promyelocytes % 0; Reactive Lymphocytes 0
[2024-08-03] MEDS: PROPOFOL 100 ML IV SCH (11:45)
[2024-08-03 11:50] LABS: INR 1.18 (0.9-1.15); Partial Thromboplastin Time 28.5 SEC (24.5-34.5); Prothrombin Time 12.4 sec (9.3-11.8)
[2024-08-03 11:55] LABS: Albumin 3.4 g/dL (3.2-4.8); Anion Gap 13 (5-15); Aspartate Aminotransferase 29 U/L (13-40); BUN/Creatinine Ratio 11.7 (10.0-20.0); Carbon Dioxide 22 mmol/L (20-31); Chloride 105 mmol/L (98-107); Glucose 104 mg/dL (74-106); Potassium 4.6 mmol/L (3.5-5.1); Sodium 140 mmol/L (136-145)
[2024-08-03 11:59] LABS: Blood Urea Nitrogen 37 mg/dL (9-23)
[2024-08-03 12:00] LABS: Alanine Aminotransferase < 9 U/L (7-40); Alkaline Phosphatase 400 U/L (46-116); Bilirubin, Total 1.7 mg/dL (0.2-1.0); Blood Alcohol < 3.0 mg/dL (<10)
[2024-08-03 12:07] LABS: Urine Bacteria None Seen /hpf (None Seen)
--- NOTE | 2024-08-03 12:10 | ED.PDOC ---
History of Present Illness HPI Comments A 48 year old male brought in by EMS presents to the ED with a chief complaint of altered mental status onset today. Per EMS, family members noticed patient altered an hour prior to EMS arrival. EMS states upon their arrival patient was A & O x4, eye opening with painful stimuli. Family denies any fall or injury. Upon ED arrival, patient was unresponsive. Has a past medical history of ESKD, DM, HTN, seizures, TIA. No other symptoms or modifying factors present at this time. Chief Complaint: ALOC Time Seen by MD: 11:08 Primary Care Provider: UNKNOWN Reviewed Notes: Medications, Allergies Allergies: Coded Allergies: Butorphanol (Verified Allergy, Unknown, 04/03/15) Ketorolac (Verified Allergy, Unknown, 04/03/15) NSAIDs (Verified Allergy, Unknown, 04/03/15) Sumatriptan (Verified Allergy, Unknown, 04/03/15) Tromethamine (Verified Allergy, Unknown, 04/03/15) Uncoded Allergies: NUBANE (Allergy, Unknown, 04/03/15) Home Meds Active Scripts Lactulose (Lactulose) 10 Gm/15 Ml Kim, 20 GM PO TID, #240 ML 2 Refills Prov:NUNO COLLADO MD 04/17/24 Furosemide (Furosemide) 40 Mg Tab, 40 MG PO DAILY, #30 TAB Prov:SKY LESLIE MD 10/23/23 Reported Medications Acetaminophen W/ Codeine (Tylenol W/Cod #3) 1 Tab Tb, 1 TAB PO, TAB 04/01/24 Propranolol HCl (Propranolol Hydrochloride) 10 Mg Tab, 10 MG PO TID, TAB 04/01/24 Omeprazole Magnesium (Omeprazole) 20 Mg Tab, 20 MG PO DAILY, TAB 03/08/24 Ondansetron Odt 4MG Tab (ZOFRAN PO) 4 Mg Tb, 4 MG PO TID, TAB ODT TAB-DISSOLVE IN MOUTH, THEN SWALLOW 03/08/24 Information Source: Emergency Med Personnel Mode of Arrival: EMS Severity: Moderate Timing: Hours Duration: Since onset Prehospital treatment: None Past Medical History PAST MEDICAL HISTORY: DM, ESRD, HTN, Liver, Seizures, TIA Surgical History: Denies all surgeries Family History Family History: Pt Confused Social History Smoker: Unknown Alcohol: Unknown Drugs: Unknown Lives In: Home Unable to Obtain due to: Altered Mental Status, Intubated All Other Systems: Reviewed and Negative Physical Exam General Appearance: Normal HEENT: Normal ENT Inspection, Pharynx Normal, TMs Normal Neck: Full Range of Motion, Non-Tender, Normal, Normal Inspection Respiratory: Chest Non-Tender, Lungs Clear, No Accessory Muscle Use, No Respiratory Distress, Normal Breath Sounds Cardiovascular: No Edema, No JVD, No Murmur, No Gallop, Normal Peripheral Pulses, Regular Rate/Rhythm Breast Exam: Deferred Gastrointestinal: No Organomegaly, Non Tender, No Pulsatile Mass, Normal Bowel Sounds, Soft Genitalia: Deferred Pelvic: Deferred Rectal: Deferred Extremities: No calf tenderness, Normal capillary refill, Normal inspection, Normal range of motion, Non-tender, No pedal edema Musculoskeletal : Apperance: Normal Neurologic: Alert, log deck tender II-XII nml as Tested, No Motor Deficits, Normal Affect, Normal Mood, No Sensory Deficits Cerebellar Function: Normal Reflexes: Normal Skin: Dry, Normal Color, Warm Lymphatic: No Adenopathy Was a procedure done? 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 payroll: Attending Physician Indication: Inability to obtain IV Room prepared for procedure: Yes Station Engineer Chief performed hand hygien: Yes Maximal sterile barrier precau: Mask/Eye shield, Sterile gown, Cap, Sterlie gloves, Large sterlie drape Skin Preparation: Chlorhexidine gluconate, Providine iodine Skin preparation completely dr: Yes Insertion site: Right Number of lumens: 3 Post Assessment: Chest X-Ray, Proper placement Informed consent obtained: No Intubation Indication: Altered Mental Status Prep: Preoxygenation Pretreated with: Sedation Medicated with: Other (etomidate 20 mg, rocuronium 100 mg) Intubation Approach: Orotracheal Intubation size: cm (8.0) Informed consent obtained: No Differential Dx Considerations may include: Hyperammonemia, electrolyte abnormality, sepsis, metabolic encephalopathy, CVA X-Ray, Labs, Meds, VS Vital Signs Date Time Temp Pulse Resp B/P (MAP) Pulse Ox O2 Delivery O2 Flow Rate FiO2 08/03/24 14:15 95.5 90 15 115/74 (88) 98 95.5 08/03/24 14:01 93 17 119/78 (92) 98 30 08/03/24 14:00 95.5 92 15 123/82 (96) 97 95.5 08/03/24 13:45 95.5 89 15 119/78 (92) 98 95.5 08/03/24 13:30 95.5 91 16 118/79 (92) 99 95.5 08/03/24 13:15 95.5 92 15 122/81 (95) 98 95.5 08/03/24 13:00 95.5 92 15 120/82 (95) 99 95.5 08/03/24 12:45 95.5 96 16 126/84 (98) 98 95.5 08/03/24 12:30 95.7 100 19 130/85 (100) 100 95.7 08/03/24 12:30 130/85 08/03/24 12:00 95.8 111 20 137/87 (104) 97 95.8 08/03/24 12:00 137/87 08/03/24 11:50 97 20 97 Mechanical Ventilator+ 30 30 08/03/24 11:45 95.8 100 20 129/84 (99) 97 95.8 08/03/24 11:45 125/83 08/03/24 11:41 109 14 125/83 (97) 100 30 08/03/24 11:30 126/84 08/03/24 11:27 95.8 107 13 126/82 (97) 100 95.8 08/03/24 11:05 98.0 125 24 105/64 (78) 95 08/03/24 11:05 114 Lab Test 08/03/24 13:39 08/03/24 12:00 08/03/24 11:22 Range/Units Influenza Type A Antigen Negative Negative Influenza Type B Antigen Negative Negative SARS-CoV-2 Antigen (Rapid) Negative NEGATIVE Urine Color Light-yellow Yellow Urine Clarity Clear Clear Urine pH 7.5 5.0-9.0 Urine Specific [place] 1.015 1.001-1.035 Urine Protein Negative Negative Urine Ketones Negative Negative Urine Blood Negative Negative /uL Urine Nitrite Negative Negative Urine Bilirubin Negative Negative Urine Urobilinogen 2 H Negative mg/dL Urine Leukocyte Esterase Negative Negative /uL Urine RBC 1 0 - 3 /hpf Urine WBC 3 0 - 3 /hpf Urine Squamous Epithelial Cells None seen <5 /hpf Urine Bacteria None seen None Seen /hpf Urine Glucose Normal Normal mg/dL Urine Opiates Screen Neg NEGATIVE Urine Fentanyl Screen Neg NEGATIVE Urine Barbiturates Screen Neg NEGATIVE Urine Phencyclidine Screen Neg NEGATIVE Urine Amphetamines Screen Neg NEGATIVE Urine Benzodiazepines Screen Neg NEGATIVE Urine Cocaine Screen Neg NEGATIVE Urine Cannabinoids Screen Neg NEGATIVE White Blood Count 6.8 4.4-10.8 10^3/uL Red Blood Count 3.35 L 4.5-5.90 10^6/uL Hemoglobin 9.7 L 13.5-17.5 g/dL Hematocrit 29.4 L 41.0-53.0 % Mean Corpuscular Volume 87.6 80.0-100.0 fL Mean Corpuscular Hemoglobin 28.9 28.0-32.0 pg Mean Corpuscular Hemoglobin Concent 33.0 32.0-36.0 g/dL Red Cell Distribution Width 16.6 H 11.8-14.3 % Platelet Count 233 140-450 10^3/uL Mean Platelet Volume 8.3 6.9-10.8 fL Neutrophils (%) (Auto) 37.0-80.0 % Lymphocytes (%) (Auto) 10.0-50.0 % Monocytes (%) (Auto) 0.0-12.0 % Basophils (%) (Auto) 0.0-2.0 % Neutrophils # (Auto) 1.6-8.6 10 ^3/uL Lymphocytes # (Auto) 0.4-5.4 10 ^3/uL Monocytes # (Auto) 0-1.3 10 ^3/uL Differential Total Cells Counted 100.0 100 Neutrophils % (Manual) 61 37.0-80.0 Band Neutrophils % (Manual) 0 Lymphocytes % (Manual) 13 10.0-50.0 Monocytes % (Manual) 20 H 0-12 Eosinophils % (Manual) 6 0-7 Basophils % (Manual) 0 0.0-2.0 Metamyelocytes % (manual) 0 Myelocytes % (Manual) 0 Promyelocytes % (Manual) 0 Blast Cells % (Manual) 0 Reactive Lymphocytes 0 Platelet Estimate Adequate Prothrombin Time 12.4 H 9.3-11.8 sec Prothrombin Time INR 1.18 H 0.9-1.15 Activated Partial Thromboplast Time 28.5 24.5-34.5 SEC Sodium Level 140 136-145 mmol/L Potassium Level 4.6 3.5-5.1 mmol/L Chloride Level 105 98-107 mmol/L Carbon Dioxide Level 22 20-31 mmol/L Anion Gap 13 5-15 Blood Urea Nitrogen 37 H 9-23 mg/dL Creatinine 3.17 H 0.700-1.30 mg/dL Glomerular Filtration Rate Calc 23 >90 mL/min BUN/Creatinine Ratio 11.7 10.0-20.0 Serum Glucose 104 74-106 mg/dL Lactic Acid Level 1.5 0.4-2.0 mmol/L Calcium Level 10.0 8.7-10.4 mg/dL Magnesium Level 2.0 1.6-2.6 mg/dL Total Bilirubin 1.7 H 0.2-1.0 mg/dL Aspartate Amino Transferase (AST) 29 13-40 U/L Alanine Aminotransferase (ALT) < 9 7-40 U/L Alkaline Phosphatase 400 H 46-116 U/L Ammonia 240 *H 11-32 umol/L Troponin I High Sensitivity 3 L </=54 ng/L B-Type Natriuretic Peptide 51.01 0-100 pg/mL Total Protein 7.0 5.7-8.2 g/dL Albumin 3.4 3.2-4.8 g/dL Lipase 32 12-53 U/L Plasma/Serum Blood Alcohol < 3.0 <10 mg/dL Current Medications Medications (Trade) Dose Ordered Sig/Pete Route Start Time Stop Time Status Last Admin Propofol 100 ml @ 2.97 mls/hr Q24H IV 08/03/24 11:30 08/03/24 11:45 Sodium Chloride 1,000 ml @ 100 mls/hr Q10H IV 08/03/24 13:15 08/03/24 13:53 Sodium Chloride 1,000 ml @ 1,000 mls/hr Q1H ONCE IV 08/03/24 13:15 08/03/24 14:14 DC 08/03/24 13:[address] [address] Ph: [phone] DIAGNOSTIC IMAGING Diagnostic Imaging Report : [id number] Signed PATIENT: HERIBERTO WHITE ACCT: [id number] UNIT: [id number] : 1975 LOC: ER ROOM / BED: / AGE / SEX: 48 / M ADM STATUS: REG ER SERVICE 1111 ORDERING PHYSICIAN: KULDIP FAUST MD PROCEDURE(s): CXRP - CHEST PORTABLE REASON: ams ORDER NUMBER(s): [id number], ACCESSION NUMBER(s): [id number] XY CHEST PORTABLE, HISTORY: ams COMPARISON: XY CHEST PORTABLE on DOS: 03/30/24, XY CHEST XRAY 1 VIEW on DOS: 10/20/23 XY CHEST PORTABLE on DOS: 03/30/24, XY CHEST XRAY 1 VIEW on DOS: 10/20/23 TECHNICAL DATA: 1 view of the chest was obtained. FINDINGS: Lines and tubes: ET in the mid thoracic trachea. NG in the stomach. Cardiomediastinal silhouette: normal Pulmonary vasculature: normal Lung expansion: low Lung airspace: normal Lung interstitium: normal Pleura: normal Pneumothorax: no Bones: Unremarkable Other: no IMPRESSION: No acute intrathoracic abnormality. ET in the mid thoracic trachea. ATED BY: RICCO MALONE MD DICTATED DATE/TIME: 08/03/24 122 SIGNED BY: RICCO MALONE MD SIGNED DATE/TIME: 08/03/24 122 CC: [place] [id number] Ph: [phone] DIAGNOSTIC IMAGING Diagnostic Imaging Report : [id number] Signed PATIENT: HERIBERTO WHITE ACCT: [id number] UNIT: [id number] : 1975 LOC: ER ROOM / BED: / AGE / SEX: 48 / M ADM STATUS: REG ER SERVICE 1145 ORDERING PHYSICIAN: KULDIP FAUST MD PROCEDURE(s): CS2 - CERVICAL WITHOUT CONTRAST REASON: fall unresponsive intubated ORDER NUMBER(s): [id number], ACCESSION NUMBER(s): [id number] CLINICAL HISTORY: Fall injury, unresponsive, intubated. COMPARISON: CT HEAD WITHOUT CONTRAST on DOS: 04/16/24, CT HEAD WITHOUT CONTRAST on DOS: 03/30/24, CT HEAD WITHOUT CONTRAST on DOS: 03/07/24 TECHNIQUE: Axial CT images of the cervical spine were obtained without IV contrast. Coronal and sagittal reformatted images were obtained. All CT scans at this medical facility are performed using dose modulation techniques as appropriate to a performed exam including the following: Automated exposure control was utilized; adjustment of the MA and/or KV according to patient size; and use of iterative reconstruction technique. CTDIvol = 22.12, 0.41, 0.07 mGy DLP = 548.48 mGy-cm FINDINGS: Bones: Straightening of the normal cervical lordosis. No significant sp ondylolisthesis. Vertebral body heights are maintained. Posterior elements are intact. No acute fracture. Multilevel moderate disc space narrowing in the cervical spine with associated endplate sclerosis and endplate spurring. Paraspinal soft tissues: Nuchal ligament calcification/ ossification seen at the C4 level. Otherwise unremarkable. Other: Partially visualized endotracheal tube and nasogastric tube. IMPRESSION: 1. No evidence of acute fracture or spondylolisthesis in the cervical spine. 2. Straightening of the normal cervical lordosis. May be positional or due to muscle spasm. 3. Additional findings as described above. ATED BY: VINAY NGO DO DICTATED DATE/TIME: 08/03/241248 SIGNED BY: VINAY NGO DO SIGNED DATE/TIME: 08/03/241248 CC: [place] [id number] Ph: [phone] DIAGNOSTIC IMAGING Diagnostic Imaging Report : [id number] Signed PATIENT: HERIBERTO WHITE ACCT: [id number] UNIT: [id number] : 1975 LOC: ER ROOM / BED: / AGE / SEX: 48 / M ADM STATUS: REG ER SERVICE 1145 ORDERING PHYSICIAN: KULDIP FAUST MD PROCEDURE(s): HWOCT - HEAD WITHOUT CONTRAST REASON: fall, unresponsive, intubated ORDER NUMBER(s): [id number], ACCESSION NUMBER(s): [id number] CLINICAL INFORMATION: 48 years old, Male; fall, unresponsive, intubated. TECHNIQUE: Axial imaging was obtained through the brain without contrast. Coronal and sagittal reformatted images were obtained, reviewed, and stored. Images were reviewed in brain and bone windows. All CT scans at this medical facility are performed using dose modulation techniques as appropriate to a performed exam including the following: Automated exposure control was utilized; adjustment of the MA and/or KV according to patient size; and use of iterative reconstruction technique. CTDIvol = 56.74, 0.07 mGy DLP = 909.52 mGy-cm COMPARISON: CT HEAD WITHOUT CONTRAST on DOS: 04/16/24, MRI BRAIN HEAD WO CONTRAST on DOS: 04/01/24, CT HEAD WITHOUT CONTRAST on DOS: 03/30/24 FINDINGS: There is no acute intracranial hemorrhage or extraaxial fluid collection. No mass effect or midline shift. The ventricles and sulci are wit hin normal limits in size for age. Basal cisterns are patent. The calvarium is unremarkable. Complete opacification of the right maxillary sinus and partial opacification of the ethmoid air cells bilaterally. Nasogastric tube partially visualized. Mastoid air cells are clear. IMPRESSION: 1. No CT evidence of acute intracranial abnormality. 2. Paranasal sinusitis as described above, including complete opacification of the right maxillary sinus. ATED BY: VINAY NGO DO DICTATED DATE/TIME: 08/03/24 1240 SIGNED BY: VINAY NGO DO SIGNED DATE/TIME: 08/03/24 1240 CC: [place] [id number] Ph: [phone] DIAGNOSTIC IMAGING Diagnostic Imaging Report : [id number] Signed PATIENT: HERIBERTO WHITE ACCT: [id number] UNIT: [id number] : 1975 LOC: ER ROOM / BED: / AGE / SEX: 48 / M ADM STATUS: REG ER SERVICE 1151 ORDERING PHYSICIAN: KULDIP FAUST MD PROCEDURE(s): CTCAP - CHST AB PEL WO CON-NO IV/ORAL REASON: FALL UNRESPONSIVE INTUBATED ORDER NUMBER(s): [id number], ACCESSION NUMBER(s): [id number] Exam: CT CHST AB PEL WO CON-NO IV/ORAL History: FALL UNRESPONSIVE INTUBATED Comparison Study: None available at time of dictation. Technique: Multidetector spiral CT of the chest, abdomen and pelvis was perf ormed from lower neck to pubic symphysis without contrast. Axial, coronal and sagittal multiplanar reformats were performed by the technologist on a separate workstation. Radiation Dose : Chest/Abdomen/Pelvis: CTDIvol 16.78 mGy, DLP 1267.09 mGy*cm. Findings: Lower neck: Endotracheal tube in place. Nasogastric tube in place. Lungs: Mild consolidation in the apical segment of the left lower lobe. Atelectasis and scarring in the lung bases. Heart/Vascular Structures: Normal heart size. No pericardial effusion. Lymph Nodes: No adenopathy Pleura: No pleural effusion or significant pneumothorax. Liver: Liver demonstrates a mildly nodular contour. Gallbladder and Biliary Tree: Sludge and stones in the gallbladder. Spleen: Enlarged Pancreas: Fatty infiltrated. Adrenal Glands: Unremarkable Kidneys: Left lower pole renal calculus measuring up to 5 mm. Mild to moderate right hydronephrosis. Bladder: Bladder is decompressed with a Gamez catheter and cannot be adequately assessed. Bowel: The stomach is grossly normal in appearance. There are few dilated loops of small bowel in the midabdomen. The appendix is not visualized; however, no secondary findings of acute appendicitis identified. Ascites: Moderate amount of fluid in the abdomen and pelvis appears loculated. Lymphadenopathy: No mesenteric, retroperitoneal or periportal lymphadenopathy. Abdominal Wall and Mesentery: Unremarkable. Vasculature: Multiple likely varices in the upper abdomen. Pelvic Organs: Unremarkable Musculoskeletal: No aggressive focal bony lesions, acute fractures or dislocation. IMPRESSION: 1. Consolidation in the apical segment of the left lower lobe could be aspiration pneumonia. Cirrhotic appearing liver. Evidence of portal venous hypertension. Ascites appears loculated. Diagnostic paracentesis could be performed for further evaluation. Cholelithiasis. Left lower pole renal calculus . [id number] right hydronephrosis. Few mildly dilated loops of small bowel are nonspecific. If concern persists consider further evaluation with CT of the abdomen and pelvis with contrast. HS:Y ATED BY: PIA MANCIA MD DICTATED DATE/TIME: 08/03/241306 SIGNED BY: PIA MANCIA MD SIGNED DATE/TIME: 08/03/241306 CC: Time of 1ST Reevaluation: 11:38 Reevaluation 1ST: Unchanged Patient Education/Counseling: Pt Unresponsive Family Education/Counseling: No Family Present Additional Information HI DATA VOL/COMPLEXITY:>2 External Notes- Ordered Test- LAB, EKG, PHA, XY, RT, KAITLIN, CT Reviewed Results: CMP, CBC, UA, Manual Differential, Lipase, LA w/ Reflex, Drug Screen, BNP, Ammonia, Blood alcohol, magnesium, TROP, PTPTT Independent Hx- EMS Interpreted Results- EKG/CT/XY Discuss Tx/Results- medical personnel, Departure 1 Departure Time of Disposition: 14:25 (Patient with altered mental status concerning for sepsis, hyperammonemia, metabolic encephalopathy. Patient was acutely ill and unresponsive. Patient was intubated. Given lactulose. We will admit to ICU.) Impression: Primary Impression: Hepatic encephalopathy Additional Impressions: Pneumonia Qualified Codes: J18.9 - Pneumonia, unspecified organism Unresponsive Disposition: ADMITTED INPATIENT Admit to: ICU Condition: Critical Critical Care Note Critical Care Time?: Yes Critical care comment: Unresponsive Authorized and Performed by: Kuldip Faust MD Total critical care time: Approximately 42 minutes Due to a high probability of clinically significant, life threatening deterioration, the patient required my highest level of preparedness to intervene emergently and I personally spent this critical care time directly and personally managing the patient. This critical care time included obtaining a history; examining the patient; pulse oximetry; ordering and review of studies; arranging urgent treatment with development of a management plan; evaluation of patient's response to treatment; frequent reassessment; and, discussions with other providers. This critical care time was performed to assess and manage the high probability of imminent, life-threatening deterioration that could result in multi-organ failure. It was exclusive of separately billable procedures and treating other patients and teaching time. Please see my other sections and the rest of the note for further information on patient assessment and treatment. Stability Stability form required: No Heart Score Heart Score: Heart Score Response (Comments) Value History N/A 0 EKG N/A 0 Age N/A 0 Risk Factors N/A 0 Troponin N/A 0 Total 0 I personally scribed for KULDIP FAUST MD ([email or web address]) on 08/03/24 at 12:10. Electronically submitted by Stephanie Michelle ([email or web address]). I personally scribed for KULDIP FAUST MD ([email or web address]) on 08/03/24 at 12:17. Electronically submitted by Stephanie Michelle ([email or web address]). I personally scribed for KULDIP FAUST MD ([facility]) on 08/03/24 at 12:30. Electronically submitted by Stephanie Michelle ([email or web address]). I personally scribed for KULDIP FAUST MD ([facility]) on 08/03/24 at 13:53. Electronically submitted by Stephanie Michelle ([email or web address]). I personally scribed for KULDIP FAUST MD ([facility]) on 08/03/24 at 13:54. Electronically submitted by Stephanie Michelle ([email or web address]). KULDIP FAUST MD Aug 03, 2024 12:10
[2024-08-03 12:15] LABS: Eosinophils % (manual) 6 (0-7); Lymphocytes % (manual) 13 (10.0-50.0); Monocytes % (manual) 20 (0-12); Platelet Estimate Adequate
[2024-08-03 12:25] LABS: Urine Blood Negative /uL (Negative); Urine Clarity Clear (Clear); Urine Color Light-Yellow (Yellow); Urine Protein, UAD Negative (Negative); Urine Specific Gravity 1.015 (1.001-1.035); Urine Urobilinogen 2 mg/dL (Negative); Urine WBC 3 /hpf (0 - 3); Urine pH 7.5 (5.0-9.0)
--- NOTE | 2024-08-03 12:25 | DVH ---
XY CHEST PORTABLE, HISTORY: ams COMPARISON: XY CHEST PORTABLE on DOS: 03/30/24, XY CHEST XRAY 1 VIEW on DOS: 10/20/23 XY CHEST PORTABLE on DOS: 03/30/24, XY CHEST XRAY 1 VIEW on DOS: 10/20/23 TECHNICAL DATA: 1 view of the chest was obtained. FINDINGS: Lines and tubes: ET in the mid thoracic trachea. NG in the stomach. Cardiomediastinal silhouette: normal Pulmonary vasculature: normal Lung expansion: low Lung airspace: normal Lung interstitium: normal Pleura: normal Pneumothorax: no Bones: Unremarkable Other: no IMPRESSION: No acute intrathoracic abnormality. ET in the mid thoracic trachea.
[2024-08-03 12:30] LABS: Cannabinoid Screen, Urine Neg (NEGATIVE); Opiate Scree,Urine Neg (NEGATIVE)
[2024-08-03 12:35] LABS: Amphetamine Screen, Urine Neg (NEGATIVE); Barbiturate Scree,Urine Neg (NEGATIVE); Benzodiazephine Screen, Urine Neg (NEGATIVE); Cocaine Screen, Urine Neg (NEGATIVE); Phencyclidine Screen, Urine Neg (NEGATIVE)
--- NOTE | 2024-08-03 12:42 | DVH ---
CLINICAL INFORMATION: 48 years old, Male; fall, unresponsive, intubated. TECHNIQUE: Axial imaging was obtained through the brain without contrast. Coronal and sagittal refor matted images were obtained, reviewed, and stored. Images were reviewed in brain and bone windows. A ll CT scans at this medical facility are performed using dose modulation techniques as appropriate to a performed exam including the following: Automated exposure control was utilized; adjustment of the MA and/or KV according to patient size; and use of iterative reconstruction technique. CTDIvol = 56.74, 0.07 mGy DLP = 909.52 mGy-cm COMPARISON: CT HEAD WITHOUT CONTRAST on DOS: 04/16/24, MRI BRAIN HEAD WO CONTRAST on DOS: 04/01/24, CT HEAD WITHOUT CONTRAST on DOS: 03/30/24 FINDINGS: There is no acute intracranial hemorrhage or extraaxial fluid collection. No mass effect o r midline shift. The ventricles and sulci are within normal limits in size for age. Basal cisterns a re patent. The calvarium is unremarkable. Complete opacification of the right maxillary sinus and partial opacification of the ethmoid air cells bilaterally. Nasogastric tube partially visualized. M astoid air cells are clear. IMPRESSION: 1. No CT evidence of acute intracranial abnormality. 2. Paranasal sinusitis as described above, including complete opacification of the right maxillary si nus.
--- NOTE | 2024-08-03 12:52 | DVH ---
CLINICAL HISTORY: Fall injury, unresponsive, intubated. COMPARISON: CT HEAD WITHOUT CONTRAST on DOS: 04/16/24, CT HEAD WITHOUT CONTRAST on DOS: 03/30/24, CT HE AD WITHOUT CONTRAST on DOS: 03/07/24 TECHNIQUE: Axial CT images of the cervical spine were obtained without IV contrast. Coronal and sagit daniel reformatted images were obtained. All CT scans at this medical facility are performed using dose modulation techniques as appropriate to a performed exam including the following: Automated exposure control was utilized; adjustment of the MA and/or KV according to patient size; and use of iterative reconstruction technique. CTDIvol = 22.12, 0.41, 0.07 mGy DLP = 548.48 mGy-cm FINDINGS: Bones: Straightening of the normal cervical lordosis. No significant spondylolisthesis. Vertebral bod y heights are maintained. Posterior elements are intact. No acute fracture. Multilevel moderate disc space narrowing in the cervical spine with associated endplate sclerosis and endplate spurring. Paraspinal soft tissues: Nuchal ligament calcification/ ossification seen at the C4 level. Otherwise unremarkable. Other: Partially visualized endotracheal tube and nasogastric tube. IMPRESSION: 1. No evidence of acute fracture or spondylolisthesis in the cervical spine. 2. Straightening of the normal cervical lordosis. May be positional or due to muscle spasm. 3. Additional findings as described above.
--- NOTE | 2024-08-03 13:09 | DVH ---
Exam: CT CHST AB PEL WO CON-NO IV/ORAL History: FALL UNRESPONSIVE INTUBATED Comparison Study: None available at time of dictation. Technique: Multidetector spiral CT of the chest, abdomen and pelvis was performed from lower neck to pubic symphysis without contrast. Axial, coronal and sagittal multiplanar reformats were performed by the technologist on a separate workstation. Radiation Dose : Chest/Abdomen/Pelvis: CTDIvol 16.78 mGy, DLP 1267.09 mGy*cm. Findings: Lower neck: Endotracheal tube in place. Nasogastric tube in place. Lungs: Mild consolidation in the apical segment of the left lower lobe. Atelectasis and scarring in t he lung bases. Heart/Vascular Structures: Normal heart size. No pericardial effusion. Lymph Nodes: No adenopathy Pleura: No pleural effusion or significant pneumothorax. Liver: Liver demonstrates a mildly nodular contour. Gallbladder and Biliary Tree: Sludge and stones in the gallbladder. Spleen: Enlarged Pancreas: Fatty infiltrated. Adrenal Glands: Unremarkable Kidneys: Left lower pole renal calculus measuring up to 5 mm. Mild to moderate right hydronephrosis. Bladder: Bladder is decompressed with a Gamez catheter and cannot be adequately assessed. Bowel: The stomach is grossly normal in appearance. There are few dilated loops of small bowel in the midabdomen. The appendix is not visualized; however, no secondary findings of acute appendicitis id entified. Ascites: Moderate amount of fluid in the abdomen and pelvis appears loculated. Lymphadenopathy: No mesenteric, retroperitoneal or periportal lymphadenopathy. Abdominal Wall and Mesentery: Unremarkable. Vasculature: Multiple likely varices in the upper abdomen. Pelvic Organs: Unremarkable Musculoskeletal: No aggressive focal bony lesions, acute fractures or dislocation. IMPRESSION: 1. Consolidation in the apical segment of the left lower lobe could be aspiration pneumonia. Cirrhoti c appearing liver. Evidence of portal venous hypertension. Ascites appears loculated. Diagnostic par acentesis could be performed for further evaluation. Cholelithiasis. Left lower pole renal calculus . [id number] right hydronephrosis. Few mildly dilated loops of small bowel are nonspecific. If concern persists consider further evaluation with CT of the abdomen and pelvis with contrast. HS:Y
[2024-08-03] MEDS: SODIUM CHLORIDE 0.9% 1,000 ML IV ONE (13:53)
[2024-08-03] MEDS: SODIUM CHLORIDE 0.9% 1,000 ML IV SCH (13:53)
[2024-08-03 14:16] LABS: COVID19 ANTIGEN SOFIA FIA NEGATIVE (NEGATIVE); Rapid Influenza A Negative (Negative); Rapid Influenza B Negative (Negative)
[2024-08-03] MEDS: LACTULOSE 20Gm/30ML SOLN NG ONE (14:38)
[2024-08-03] MEDS: AZITHROMYCIN 500MG/ 250ML 250 ML IV ONE (14:39)
[2024-08-03] MEDS: VANCOMYCIN 1GM/250ML KIT 200 ML IV ONE (15:05)
[2024-08-03] MEDS: CEFEPIME 2GM/50ML NS 50 ML IV ONE (15:38)
[2024-08-03] MEDS ORDERED: NITROGLYCERIN 0.4 MG SL TAB SL PRN (16:15)
[2024-08-03] MEDS ORDERED: MORPHINE SULFATE INJ 2 MG/ml SYRG IV PRN (16:15)
[2024-08-03] MEDS: fentaNYL Drip 2500mCg/250mlNS 250 ML IV SCH (16:26)
[2024-08-03] MEDS: PIPERACILLIN-TAZOB 3.375GM 100 ML IV ONE (16:29)
[2024-08-03] MEDS: D5W/SOD CHLO 0.9% 1,000 ML IV SCH (16:29)
[2024-08-03] MEDS: LACTULOSE 20Gm/30ML SOLN NG SCH (17:15)
[2024-08-03] MEDS: FUROSEMIDE 20 MG/2 ML VIAL IV SCH (17:15)
--- NOTE | 2024-08-03 17:55 | ECG ---
[facility] Test Date: 2024-08-03 Test Time: 11:05:24 Pat Name: HERIBERTO WHITE Department: ER Room: [address] [place] [address] Gender: M Desk [employer]er: EMEKA : 1975 Requested By: KULDIP FAUST Order Number: [id number] Reading MD: Kyrie Willingham Measurements Intervals Royal Rate: 114 P: 64 CT: 176 QRS: -11 QRSD: 101 T: 84 QT: 343 QTc: 473 Interpretive Statements Sinus tachycardia Low voltage, extremity and precordial leads / Electronically Signed On 08-08-2024 16:08:12 PST by Kyrie Willingham Please click the below link to view image of tracing.
--- NOTE | 2024-08-03 20:47 | DVHHP2 ---
Admitting Diagnosis: Hepatic encephalopathy, ALOC, Aspiration pneumonitis History of Present Illness History Source: RN Notes Exam Limitations: Clinical condition HPI Mr. Javier Fritz is a 48 yo male with a history of ESRD, DM, hypertension, seizures, TIA who presents with altered mental status. Limited HPI due to patient clinical condition intubated/sedated no family at bedside. Patient with ammonia level 240, BUN 37 creatinine 3.17, ALP 400. Patient admitted for further evaluation. Home Meds Active Scripts Lactulose (Lactulose) 10 Gm/15 Ml Kim, 20 GM PO TID, #240 ML 2 Refills Prov:NUNO COLLADO MD 04/17/24 Furosemide (Furosemide) 40 Mg Tab, 40 MG PO DAILY, #30 TAB Prov:SKY LESLIE MD 10/23/23 Reported Medications Acetaminophen W/ Codeine (Tylenol W/Cod #3) 1 Tab Tb, 1 TAB PO, TAB 04/01/24 Propranolol HCl (Propranolol Hydrochloride) 10 Mg Tab, 10 MG PO TID, TAB 04/01/24 Omeprazole Magnesium (Omeprazole) 20 Mg Tab, 20 MG PO DAILY, TAB 03/08/24 Ondansetron Odt 4MG Tab (ZOFRAN PO) 4 Mg Tb, 4 MG PO TID, TAB ODT TAB-DISSOLVE IN MOUTH, THEN SWALLOW 03/08/24 Past Medical History Cardiac: HTN Pulmonary: No pertinent Hx Central Nervous System: Seizure, TIA GI: No pertinent Hx Hemotology/Oncology: No pertinent Hx Hepatobiliary: No pertinent Hx Psychiatric: No pertinent Hx Musculoskeletal: No pertinent Hx Rheumotologic: No pertinent Hx Infectious Disease: No peritnent Hx ENT: No pertinent Hx Renal/: CKD Endocrine: NIDDM Dermatology: No pertinent Hx Patient Family History: CKD (chronic kidney disease) G8 MOTHER (COPD) G8 FATHER (BACK PAIN) Chronic obstructive pulmonary disease G8 MOTHER (COPD) G8 FATHER (BACK PAIN) FHx: atrial fibrillation G8 MOTHER (COPD) G8 FATHER (BACK PAIN) Hypertension G8 MOTHER (COPD) G8 FATHER (BACK PAIN) Review of Systems Comments unable to perform ROS patient intubated/sedated H&P Exam Vital Signs Vital Signs Date Time Temp Pulse Resp B/P (MAP) Pulse Ox O2 Delivery O2 Flow Rate FiO2 08/03/24 20:00 100 20 120/76 (91) 100 30 11/29/24 18:50 Mechanical Ventilator+ 08/03/24 18:21 98.6 98.6 General Appeara: Well developed Head Exam: Normal inspection Neck Exam: Normal inspection, Normal alignment Eye Exam: bilateral eye Normal inspection, bilateral eye PERRL, bilateral eye Scleral icterus Ear Exam: bilateral ear Auricle normal Nasal Exam: Normal inspection Mouth: Normal Inspection (ET tube) Cardiovascular/Chest: Normal inspection, Edema, Regular rate, Normal Rhythm Peripheral Pulses: 2+ dorsalis pedis (R), 2+ dorsalis pedis (L), 2+ Radial (R), 2+ Radial (L) Abdominal Exam: Normal bowel sounds, Other (round, distended , striae ) Rectal Exam: Deferred Male Genital Exam: Other (edema) Legs: bilateral leg other (edema) MONITORING COORDINATOR Exam: Other (intubaed/sedated unable to perform) Neuro/Mental St: Other (sedated) Appearance: Other (ill appearing) Thoughts/Psych: Other (sedated) Skin Exam: Normal inspection, Warm/dry, Pallor Labs/Xrays Labs Test 08/03/24 13:56 08/03/24 13:39 08/03/24 12:00 08/03/24 11:22 Range/Units Blood Gas Specimen Type Arterial Blood Gas Sample Site Right radial Blood Gas Patient Temperature 37.0 Arterial Blood Date Drawn [id number] Arterial Blood pH 7.436 7.350-7.450 Arterial Blood Partial Pressure CO2 31.2 L 35.0-48.0 mmHg Arterial Blood Partial Pressure O2 92.9 83.0-108.0 mmHg Arterial Blood HCO3 20.5 L 21.0-28.0 mmol/L Arterial Blood Oxygen Saturation 96.4 94.0-98.0 % Arterial Blood Base Excess -3.0 L -2.0-3.0 mmol/L Arterial Blood Oxyhemoglobin 95.5 94.0-98.0 % Arterial Blood Carboxyhemoglobin 0.3 L 0.5-1.5 % Arterial Blood Methemoglobin 0.6 0.0-1.5 % Kevin Test Modified Blood Gas Total Hemoglobin 9.70 L 13.5-17.5 g/dL Blood Gas Set Respiration Rate 14.0 Blood Gas Modality Vent - ac FiO2 % 30.0 Blood Gas Tidal Volume 500.0 Blood Gas PEEP or CPAP 5.0 Influenza Type A Antigen Negative Negative Influenza Type B Antigen Negative Negative SARS-CoV-2 Antigen (Rapid) Negative NEGATIVE Urine Color Light-yellow Yellow Urine Clarity Clear Clear Urine pH 7.5 5.0-9.0 Urine Specific [place] 1.015 1.001-1.035 Urine Protein Negative Negative Urine Ketones Negative Negative Urine Blood Negative Negative /uL Urine Nitrite Negative Negative Urine Bilirubin Negative Negative Urine Urobilinogen 2 H Negative mg/dL Urine Leukocyte Esterase Negative Negative /uL Urine RBC 1 0 - 3 /hpf Urine WBC 3 0 - 3 /hpf Urine Squamous Epithelial Cells None seen <5 /hpf Urine Bacteria None seen None Seen /hpf Urine Glucose Normal Normal mg/dL Urine Opiates Screen Neg NEGATIVE Urine Fentanyl Screen Neg NEGATIVE Urine Barbiturates Screen Neg NEGATIVE Urine Phencyclidine Screen Neg NEGATIVE Urine Amphetamines Screen Neg NEGATIVE Urine Benzodiazepines Screen Neg NEGATIVE Urine Cocaine Screen Neg NEGATIVE Urine Cannabinoids Screen Neg NEGATIVE White Blood Count 6.8 4.4-10.8 10^3/uL Red Blood Count 3.35 L 4.5-5.90 10^6/uL Hemoglobin 9.7 L 13.5-17.5 g/dL Hematocrit 29.4 L 41.0-53.0 % Mean Corpuscular Volume 87.6 80.0-100.0 fL Mean Corpuscular Hemoglobin 28.9 28.0-32.0 pg Mean Corpuscular Hemoglobin Concent 33.0 32.0-36.0 g/dL Red Cell Distribution Width 16.6 H 11.8-14.3 % Platelet Count 233 140-450 10^3/uL Mean Platelet Volume 8.3 6.9-10.8 fL Neutrophils (%) (Auto) 37.0-80.0 % Lymphocytes (%) (Auto) 10.0-50.0 % Monocytes (%) (Auto) 0.0-12.0 % Basophils (%) (Auto) 0.0-2.0 % Neutrophils # (Auto) 1.6-8.6 10 ^3/uL Lymphocytes # (Auto) 0.4-5.4 10 ^3/uL Monocytes # (Auto) 0-1.3 10 ^3/uL Differential Total Cells Counted 100.0 100 Neutrophils % (Manual) 61 37.0-80.0 Band Neutrophils % (Manual) 0 Lymphocytes % (Manual) 13 10.0-50.0 Monocytes % (Manual) 20 H 0-12 Eosinophils % (Manual) 6 0-7 Basophils % (Manual) 0 0.0-2.0 Metamyelocytes % (manual) 0 Myelocytes % (Manual) 0 Promyelocytes % (Manual) 0 Blast Cells % (Manual) 0 Reactive Lymphocytes 0 Platelet Estimate Adequate Prothrombin Time 12.4 H 9.3-11.8 sec Prothrombin Time INR 1.18 H 0.9-1.15 Activated Partial Thromboplast Time 28.5 24.5-34.5 SEC Sodium Level 140 136-145 mmol/L Potassium Level 4.6 3.5-5.1 mmol/L Chloride Level 105 98-107 mmol/L Carbon Dioxide Level 22 20-31 mmol/L Anion Gap 13 5-15 Blood Urea Nitrogen 37 H 9-23 mg/dL Creatinine 3.17 H 0.700-1.30 mg/dL Glomerular Filtration Rate Calc 23 >90 mL/min BUN/Creatinine Ratio 11.7 10.0-20.0 Serum Glucose 104 74-106 mg/dL Lactic Acid Level 1.5 0.4-2.0 mmol/L Calcium Level 10.0 8.7-10.4 mg/dL Magnesium Level 2.0 1.6-2.6 mg/dL Total Bilirubin 1.7 H 0.2-1.0 mg/dL Aspartate Amino Transferase (AST) 29 13-40 U/L Alanine Aminotransferase (ALT) < 9 7-40 U/L Alkaline Phosphatase 400 H 46-116 U/L Ammonia 240 *H 11-32 umol/L Troponin I High Sensitivity 3 L </=54 ng/L B-Type Natriuretic Peptide 51.01 0-100 pg/mL Total Protein 7.0 5.7-8.2 g/dL Albumin 3.4 3.2-4.8 g/dL Lipase 32 12-53 U/L Plasma/Serum Blood Alcohol < 3.0 <10 mg/dL Assessment/Plan Problem List: (1) Hepatic encephalopathy (2) Altered mental status (3) Pneumonia Plan 48 yo male with known history of ESRD, DM, hypertension, seizures, TIA presents to the hospital with altered mental status. Patient found to have 1. Acute hepatic encephalopathy 2. ALOC 3. Aspiration pneumonitis 4. Acute respiratory failure 5. Abdominal loculated ascites Admit to ICU Pulmonology consultation IV antibiotic Zosyn IV fluids IV diuresis Furosemide Sedation Propofol Lactulose every 6 hours Aspirations precautions Sputum culture G&S Monitor BMP, ABG, Chest x ray Interventional Radiology consultation Discussed care plan with patient nurse Jose Manuel STARKS. Discussed assessment and care plan with admitting and supervising MD Dr. Jones. Plan discussed with: Other Code Visit Code Visit Total Time (mins): 45 Additional Comments Additional Comments Additional Comments Patient's chart reviewed. Patient is seen and evaluated and admitted by nurse practitioner yesterday evening. I agree with the nurse practitioner's evaluation, documentation, assessment and care plan as outlined. VELVET GILMAN Aug 03, 2024 20:47 NUNO COLLADO MD Aug 04, 2024 19:06
[2024-08-03] MEDS: PROPRANOLOL HCL 20 MG TAB PO SCH (21:35)
[2024-08-03] MEDS: PIPERACILLIN-TAZOB 3.375GM 100 ML IV SCH (21:35)
[2024-08-04] VITALS (104 sets, daily range): BP systolic 79–125; BP diastolic 53–84; PULSE 63–98; RESP 11–22; TEMP 97–98.8; O2SAT 98–100
[2024-08-04 03:49] LABS: Basophils # (auto) 0.1 10 ^3/uL (0-0.2); Basophils % (auto) 1.9 % (0.0-2.0); Eosinophils % (auto) 13.3 % (0.0-7.0); Hematocrit 28.3 % (41.0-53.0); Hemoglobin 9.4 g/dL (13.5-17.5); Lymphocytes # (auto) 1.1 10 ^3/uL (0.4-5.4); Lymphocytes % (auto) 14.1 % (10.0-50.0); Mean Corpuscular Hemoglobin 29.3 pg (28.0-32.0); Mean Corpuscular Hgb Conc. 33.3 g/dL (32.0-36.0); Mean Corpuscular Volume 88.1 fL (80.0-100.0); Monocytes # (auto) 1.2 10 ^3/uL (0-1.3); Monocytes % (auto) 15.5 % (0.0-12.0); Neutrophils # (auto) 4.1 10 ^3/uL (1.6-8.6); Neutrophils % (auto) 55.2 % (37.0-80.0); Platelet Count (auto) 245 10^3/uL (140-450); Red Blood Cells 3.21 10^6/uL (4.5-5.90); Red Cell Distribution Width 16.6 % (11.8-14.3); White Blood Cell 7.5 10^3/uL (4.4-10.8)
[2024-08-04 04:01] LABS: Anion Gap 12 (5-15); Calcium 9.7 mg/dL (8.7-10.4); Carbon Dioxide 21 mmol/L (20-31); Potassium 3.7 mmol/L (3.5-5.1); Sodium 142 mmol/L (136-145)
[2024-08-04 04:07] LABS: BUN/Creatinine Ratio 10.8 (10.0-20.0); Blood Urea Nitrogen 32 mg/dL (9-23); Chloride 109 mmol/L (98-107); Glucose 83 mg/dL (74-106)
--- NOTE | 2024-08-04 05:38 | DVH ---
CHEST RADIOGRAPH Indication: vent Technique: Single frontal view of the chest was obtained Comparison: XY CHEST PORTABLE on DOS: 08/03/24, XY CHEST PORTABLE on DOS: 03/30/24, XY CHEST XRAY 1 EW on DOS: 10/20/23 IMPRESSION: Heart appears stable in size. Support lines and tubes appear unchanged in satisfactory position. Mi ld increased pulmonary markings with patchy airspace opacity in the right lower lung. Trace left ple ural effusion. No pneumothorax.
[2024-08-04 08:06] LABS: Base Excess -2.5 mmol/L (-2.0-3.0)
[2024-08-04] MEDS ORDERED: SOD CHL 0.9%/ KCL 20MEQ 1,000 ML IV SCH (09:00)
[2024-08-04] MEDS: PANTOPRAZOLE 40 MG/10 ML VIAL INJ IV SCH (09:28)
[2024-08-04] MEDS: NOREPINEPHRINE 8 MG/250ML KIT 250 ML IV SCH ×2 (10:11→19:00)
[2024-08-04] MEDS: LACTULOSE 20Gm/30ML SOLN NG SCH (10:27)
[2024-08-04] MEDS: POTASSIUM CHL 20MEQ/100ML 100 ML IV ONE (10:27)
--- NOTE | 2024-08-04 19:55 | DVHPN2 ---
Progress Note - Dictate Date Seen: Aug 04, 2024 Medical Necessity Reason Pt with a Central, PICC or Fol: No Subjective Sedated on ventilator. Scheduled for paracentesis by Radiology tomorrow for abdominal distention. Ammonia level has improved to 85 post lactulose treatment. vital signs Vital Sign Date Time Temp Pulse Resp B/P (MAP) Pulse Ox O2 Delivery O2 Flow Rate FiO2 08/04/24 18:45 98.2 69 17 95/58 (70) 99 208.8 08/04/24 18:15 30 08/04/24 18:00 Mechanical Ventilator+ 30 Total Intake and Output 08/03/24 08/03/24 08/04/24 15:00 23:00 07:00 Intake Total 1100 ml 1414.12 ml 1305.4 ml Output Total 700 ml 1200 ml Balance 1100 ml 714.12 ml 105.4 ml medications Current Medications Medications Dose Ordered Sig/Pete Route Start Time Stop Time Status Last Admin Dose Admin Nitroglycerin 0.4 mg Q5MINP PRN SL 08/03/24 16:15 Morphine Sulfate 2 mg Q30M PRN IV 08/03/24 16:15 Ondansetron HCl 4 mg Q4HPRN PRN IV 08/03/24 16:15 Dextrose/Sodium Chloride 1,000 ml @ 75 mls/hr [id number] IV 08/03/24 16:15 08/04/24 17:59 75 MLS/HR Morphine Sulfate 2 mg Q4HPRN PRN IV 08/03/24 16:15 Piperacillin Sod/ Tazobactam Sod 100 ml @ 25 mls/hr Q8HR IV 08/03/24 22:00 08/04/24 13:00 25 MLS/HR Pantoprazole Sodium 40 mg DAILY IV 08/04/24 10:00 08/04/24 09:28 40 MG Furosemide 20 mg BIDD IV 08/03/24 18:00 08/04/24 16:46 20 MG Propranolol HCl 10 mg TID PO 08/03/24 22:00 08/04/24 05:34 10 MG Lactulose 60 ml BID NG 08/04/24 10:00 08/04/24 10:27 60 ML Propofol 100 ml @ 2.799 mls/ hr Q24H IV 08/04/24 19:00 Fentanyl Citrate 250 ml @ 2.5 mls/hr Q24H IV 08/04/24 19:00 Norepinephrine Bitartrate 250 ml @ 3.75 mls/hr Q24H IV 08/04/24 19:00 objective On ventilator comfortable without distress. HEENT neck supple no JVD. Heart regular rate and rhythm S1-S2. Lungs without rales wheezes. Abdomen distended tympanic to palpation positive bowel sounds. Extremities no edema. laboratory and microbiology Laboratory Tests 08/04/24 03:21 Test 08/04/24 03:21 Range/Units Serum Glucose 83 74-106 mg/dL Assessment/Plan I will give him IV albumin due to paracentesis in the morning. We will try to avoid large volume paracentesis. Otherwise continue current antibiotics rest of supportive care and treatment as he is on. Further clinical management per clinical course. Discussed with the nurse at bedside regarding care plan. Problems(with codes): (1) Liver cirrhosis (2) Ascites (3) Pneumonia (4) Hepatic encephalopathy (5) Altered mental status Plan discussed with: Other NUNO COLLADO MD Aug 04, 2024 19:55
[2024-08-04] MEDS: ALBUMIN 25% 50 ML IV SCH (20:00)
[2024-08-04] MEDS: fentaNYL Drip 2500mCg/250mlNS 250 ML IV SCH (22:49)
[2024-08-04] MEDS: PROPOFOL 100 ML IV SCH (22:52)
--- NOTE | 2024-08-04 23:45 | DVHINCON2 ---
Date of service: Aug 04, 2024 Referring Physician Nuno Collado MD Reason for Consultation Acute hypoxic respiratory failure requiring mechanical ventilator, aspiration pneumonitis. History of Present Illness A 48-year-old man with past medical history of ESRD, DM, hypertension, seizures, and TIA who presented to ED on 08/03/24 with altered mental status. Limited HPI due to patient's clinical condition, intubated/sedated and no family at bedside. Patient with ammonia level 240, BUN 37, creatinine 3.17, ALP 400. Patient was found to have aspiration pneumonitis and abdominal loculated ascites. Pulmonary consultation is requested for evaluation and management due to these findings. Review of Systems: 14-point review of systems negative unless otherwise noted above. Past Medical History: ESRD, DM, hypertension, seizures, and TIA Past Surgical History: None. Medications: Reviewed. Allergies: Butorphanol Ketorolac NSAIDs Sumatriptan Tromethamine NUBANE Family History: COPD, CKD, AFib, hypertension. Social History: Nonsmoker. No alcohol or illicit drug use. Family History: CKD (chronic kidney disease) G8 MOTHER (COPD) G8 FATHER (BACK PAIN) Chronic obstructive pulmonary disease G8 MOTHER (COPD) G8 FATHER (BACK PAIN) FHx: atrial fibrillation G8 MOTHER (COPD) G8 FATHER (BACK PAIN) Hypertension G8 MOTHER (COPD) G8 FATHER (BACK PAIN) Allergies: Coded Allergies: Butorphanol (Verified Allergy, Unknown, 04/03/15) Ketorolac (Verified Allergy, Unknown, 04/03/15) NSAIDs (Verified Allergy, Unknown, 04/03/15) Sumatriptan (Verified Allergy, Unknown, 04/03/15) Tromethamine (Verified Allergy, Unknown, 04/03/15) Uncoded Allergies: NUBANE (Allergy, Unknown, 04/03/15) Home Meds Active Scripts Lactulose (Lactulose) 10 Gm/15 Ml Kim, 20 GM PO TID, #240 ML 2 Refills Prov:NUNO COLLADO MD 04/17/24 Furosemide (Furosemide) 40 Mg Tab, 40 MG PO DAILY, #30 TAB Prov:SKY LESLIE MD 10/23/23 Reported Medications Acetaminophen W/ Codeine (Tylenol W/Cod #3) 1 Tab Tb, 1 TAB PO, TAB 04/01/24 Propranolol HCl (Propranolol Hydrochloride) 10 Mg Tab, 10 MG PO TID, TAB 04/01/24 Omeprazole Magnesium (Omeprazole) 20 Mg Tab, 20 MG PO DAILY, TAB 03/08/24 Ondansetron Odt 4MG Tab (ZOFRAN PO) 4 Mg Tb, 4 MG PO TID, TAB ODT TAB-DISSOLVE IN MOUTH, THEN SWALLOW 03/08/24 Current Medications Current Medications Medications (Trade) Dose Ordered Sig/Pete Route PRN Reason Start Time Stop Time Status Last Admin Pantoprazole Sodium (Protonix) 40 mg DAILY IV 08/04/24 10:00 08/04/24 09:28 Norepinephrine Bitartrate 250 ml @ 3.75 mls/hr Q24H IV 08/04/24 09:00 08/04/24 18:42 DC 08/04/24 10:11 Lactulose 60 ml BID NG 08/04/24 10:00 08/04/24 22:56 Potassium Chloride/Sodium Chloride 1,000 ml @ 50 mls/hr Q20H IV 08/04/24 09:00 08/04/24 10:11 DC Propofol 100 ml @ 2.799 mls/ hr Q24H IV 08/04/24 19:00 08/04/24 22:52 Fentanyl Citrate 250 ml @ 2.5 mls/hr Q24H IV 08/04/24 19:00 08/04/24 22:49 Norepinephrine Bitartrate 250 ml @ 3.75 mls/hr Q24H IV 08/04/24 19:00 08/04/24 19:00 Albumin Human 50 ml @ 100 mls/hr Q8H IV 08/04/24 20:00 08/05/24 12:29 08/04/24 20:00 Vital Signs Vital Signs Date Time Temp Pulse Resp B/P (MAP) Pulse Ox O2 Delivery O2 Flow Rate FiO2 08/04/24 23:15 97.7 75 18 106/62 (77) 100 207.9 08/04/24 22:15 30 08/04/24 22:00 Mechanical Ventilator+ 30 Physical Exam Gen.: Patient lying in bed in medical ICU. Sedated, intubated on mechanical ventilator. Head: Normocephalic, atraumatic. Eyes: PERRLA. Ears: Normal external anatomy. Throat: Endotracheal tube and orogastric tube in place. Neck: Supple, trachea midline. Chest: Transmitted breath sounds bilaterally. Decreased air entry bilaterally. No wheezing. Bibasilar crackles. Cardiovascular: Positive S1, positive S2. Regular rate and rhythm. Abdomen: Positive bowel sounds in all 4 quadrants. Soft, nontender, nondistended. : Gamez in place. Normal external genitalia. Rectal: Deferred. Skin: Warm, dry. Intact. Extremities: 2+ radial pulses bilaterally. No lower extremity edema. Neuro: Sedated. Labs/Diagnostic Data Labs Test 08/04/24 07:27 08/04/24 03:21 08/03/24 13:39 08/03/24 12:00 Range/Units Blood Gas Specimen Type Arterial Blood Gas Sample Site Left radial Blood Gas Patient Temperature 37.0 Arterial Blood Date Drawn [id number] Arterial Blood pH 7.420 7.350-7.450 Arterial Blood Partial Pressure CO2 33.9 L 35.0-48.0 mmHg Arterial Blood Partial Pressure O2 103.5 83.0-108.0 mmHg Arterial Blood HCO3 21.5 21.0-28.0 mmol/L Arterial Blood Oxygen Saturation 97.3 94.0-98.0 % Arterial Blood Base Excess -2.5 L -2.0-3.0 mmol/L Arterial Blood Oxyhemoglobin 97.1 94.0-98.0 % Arterial Blood Carboxyhemoglobin 0.2 L 0.5-1.5 % Arterial Blood Methemoglobin 0.0 0.0-1.5 % Kevin Test Modified Blood Gas Total Hemoglobin 9.20 L 13.5-17.5 g/dL Blood Gas Set Respiration Rate 14.0 Blood Gas Modality Vent - ac FiO2 % 30.0 Blood Gas Tidal Volume 500.0 Blood Gas PEEP or CPAP 5.0 White Blood Count 7.5 4.4-10.8 10^3/uL Red Blood Count 3.21 L 4.5-5.90 10^6/uL Hemoglobin 9.4 L 13.5-17.5 g/dL Hematocrit 28.3 L 41.0-53.0 % Mean Corpuscular Volume 88.1 80.0-100.0 fL Mean Corpuscular Hemoglobin 29.3 28.0-32.0 pg Mean Corpuscular Hemoglobin Concent 33.3 32.0-36.0 g/dL Red Cell Distribution Width 16.6 H 11.8-14.3 % Platelet Count 245 140-450 10^3/uL Mean Platelet Volume 8.2 6.9-10.8 fL Neutrophils (%) (Auto) 55.2 37.0-80.0 % Lymphocytes (%) (Auto) 14.1 10.0-50.0 % Monocytes (%) (Auto) 15.5 H 0.0-12.0 % Eosinophils (%) (Auto) 13.3 H 0.0-7.0 % Basophils (%) (Auto) 1.9 0.0-2.0 % Neutrophils # (Auto) 4.1 1.6-8.6 10 ^3/uL Lymphocytes # (Auto) 1.1 0.4-5.4 10 ^3/uL Monocytes # (Auto) 1.2 0-1.3 10 ^3/uL Eosinophils # (Auto) 1.0 H 0-0.8 10 ^3/uL Basophils # (Auto) 0.1 0-0.2 10 ^3/uL Nucleated Red Blood Cells 0.0 % Sodium Level 142 136-145 mmol/L Potassium Level 3.7 3.5-5.1 mmol/L Chloride Level 109 H 98-107 mmol/L Carbon Dioxide Level 21 20-31 mmol/L Anion Gap 12 5-15 Blood Urea Nitrogen 32 H 9-23 mg/dL Creatinine 2.97 H 0.700-1.30 mg/dL Glomerular Filtration Rate Calc 25 >90 mL/min BUN/Creatinine Ratio 10.8 10.0-20.0 Serum Glucose 83 74-106 mg/dL Calcium Level 9.7 8.7-10.4 mg/dL Ammonia 85 H 11-32 umol/L Influenza Type A Antigen Negative Negative Influenza Type B Antigen Negative Negative SARS-CoV-2 Antigen (Rapid) Negative NEGATIVE Urine Color Light-yellow Yellow Urine Clarity Clear Clear Urine pH 7.5 5.0-9.0 Urine Specific Heidrick 1.015 1.001-1.035 Urine Protein Negative Negative Urine Ketones Negative Negative Urine Blood Negative Negative /uL Urine Nitrite Negative Negative Urine Bilirubin Negative Negative Urine Urobilinogen 2 H Negative mg/dL Urine Leukocyte Esterase Negative Negative /uL Urine RBC 1 0 - 3 /hpf Urine WBC 3 0 - 3 /hpf Urine Squamous Epithelial Cells None seen <5 /hpf Urine Bacteria None seen None Seen /hpf Urine Glucose Normal Normal mg/dL Urine Opiates Screen Neg NEGATIVE Urine Fentanyl Screen Neg NEGATIVE Urine Barbiturates Screen Neg NEGATIVE Urine Phencyclidine Screen Neg NEGATIVE Urine Amphetamines Screen Neg NEGATIVE Urine Benzodiazepines Screen Neg NEGATIVE Urine Cocaine Screen Neg NEGATIVE Urine Cannabinoids Screen Neg NEGATIVE Test 08/03/24 11:22 Range/Units Differential Total Cells Counted 100.0 100 Neutrophils % (Manual) 61 37.0-80.0 Band Neutrophils % (Manual) 0 Lymphocytes % (Manual) 13 10.0-50.0 Monocytes % (Manual) 20 H 0-12 Eosinophils % (Manual) 6 0-7 Basophils % (Manual) 0 0.0-2.0 Metamyelocytes % (manual) 0 Myelocytes % (Manual) 0 Promyelocytes % (Manual) 0 Blast Cells % (Manual) 0 Reactive Lymphocytes 0 Platelet Estimate Adequate Prothrombin Time 12.4 H 9.3-11.8 sec Prothrombin Time INR 1.18 H 0.9-1.15 Activated Partial Thromboplast Time 28.5 24.5-34.5 SEC Lactic Acid Level 1.5 0.4-2.0 mmol/L Magnesium Level 2.0 1.6-2.6 mg/dL Total Bilirubin 1.7 H 0.2-1.0 mg/dL Aspartate Amino Transferase (AST) 29 13-40 U/L Alanine Aminotransferase (ALT) < 9 7-40 U/L Alkaline Phosphatase 400 H 46-116 U/L Troponin I High Sensitivity 3 L </=54 ng/L B-Type Natriuretic Peptide 51.01 0-100 pg/mL Total Protein 7.0 5.7-8.2 g/dL Albumin 3.4 3.2-4.8 g/dL Lipase 32 12-53 U/L Plasma/Serum Blood Alcohol < 3.0 <10 mg/dL Microbiology Date/Time Source Procedure Growth Status 08/04/24 03:44 Nose MRSA Screen - Final Complete 08/03/24 11:54 Sputum Gram Stain - Final Resulted 08/03/24 11:54 Sputum Respiratory Culture - Preliminary Resulted Assessment Impression: Acute hypoxic respiratory failure On mechanical ventilator Acute hepatic encephalopathy ALOC Aspiration pneumonitis Abdominal loculated ascites Plan: s/p intubation on mechanical ventilator. On AC mode; RR 14, VT 500, PEEP 5, FiO2 30% Titrate FIO2 to keep O2 saturation above 90%. VAP bundle. Daily ABG and CXR while intubated Sedate for ventilator synchrony - on Fentanyl and Propofol. Taper sedation as tolerated. Improved ammonia level. On pressors for hemodynamic support Levophed 4 mcg/min Titrate to keep mean arterial pressure greater than 65 mmHg. Limited chest ultrasound shows trace right pleural effusion not amenable for thora. Limited abdominal ultrasound shows loculated LLQ ascites. IR consulted for paracentesis. Antibiotics. Monitor renal function Monitor electrolytes. Supplement as necessary. Monitor ins and outs. Maintain euvolemia. GI prophylaxis. DVT prophylaxis. Prognosis: Poor given patient's multiple co-morbidities. Condition: Critical Rest of plan per hospitalist and other consultants. A total of 35 minutes of critical care time was spent reviewing the patient record, examining the patient, making a diagnostic and therapeutic plan, discussing this plan with the medical personnel, following up on diagnostic studies and following the patient for clinical stability excluding any and all procedures. At least 50% of this time was spent in direct, [id number] contact. Thank you Dr. Nuno Collado MD, for allowing me to participate in this patient's care. Further recommendations will depend on the patient's clinical course. Please do not hesitate to contact me if you have any questions or concerns. This medical document was created using an electronic medical record system with [employer] computerized dictation system. Although these documentations are being carefully reviewed, there may still be some phonetic and typographical changes. The errors are purely typographical, due to imperfection on the software program, and do not reflect any compromise in the patient's medical care. Plan discussed with: Other (Robert Crawford MD) MARA DEVINE MD Aug 04, 2024 23:45
[2024-08-05] VITALS (103 sets, daily range): BP systolic 88–107; BP diastolic 48–66; PULSE 56–83; RESP 12–18; TEMP 93.7–99; O2SAT 95–100
[2024-08-05 04:00] LABS: Hematocrit 29.4 % (41.0-53.0); Hemoglobin 9.9 g/dL (13.5-17.5); Mean Corpuscular Hemoglobin 29.7 pg (28.0-32.0); Mean Corpuscular Hgb Conc. 33.8 g/dL (32.0-36.0); Platelet Count (auto) 240 10^3/uL (140-450); Red Blood Cells 3.34 10^6/uL (4.5-5.90); Red Cell Distribution Width 16.8 % (11.8-14.3); White Blood Cell 7.5 10^3/uL (4.4-10.8)
[2024-08-05 04:12] LABS: Band Neutrophils % (manual) 0; Basophils % (manual) 0 (0.0-2.0); Blast Cells 0; Metamyelocytes % 0; Myelocytes % 0; Promyelocytes % 0; Reactive Lymphocytes 0
[2024-08-05 04:22] LABS: Albumin 3.4 g/dL (3.2-4.8); Anion Gap 12 (5-15); Aspartate Aminotransferase 21 U/L (13-40); BUN/Creatinine Ratio 10.8 (10.0-20.0); Calcium 9.5 mg/dL (8.7-10.4); Carbon Dioxide 22 mmol/L (20-31); Chloride 107 mmol/L (98-107); Glucose 93 mg/dL (74-106); Potassium 3.8 mmol/L (3.5-5.1); Sodium 141 mmol/L (136-145); Total Protein 6.6 g/dL (5.7-8.2)
[2024-08-05 04:32] LABS: Alanine Aminotransferase < 9 U/L (7-40); Alkaline Phosphatase 320 U/L (46-116); Bilirubin, Total 1.7 mg/dL (0.2-1.0); Blood Urea Nitrogen 31 mg/dL (9-23)
[2024-08-05 05:14] LABS: Eosinophils % (manual) 20 (0-7); Lymphocytes % (manual) 14 (10.0-50.0); Monocytes % (manual) 7 (0-12); Platelet Estimate Adequate
--- NOTE | 2024-08-05 07:53 | DVH ---
XY CHEST PORTABLE, HISTORY: intubated COMPARISON: XY CHEST PORTABLE on DOS: 08/04/24, XY CHEST PORTABLE on DOS: 08/03/24, XY CHEST PORTABLE on DOS: 03/30/24 XY CHEST PORTABLE on DOS: 08/04/24, XY CHEST PORTABLE on DOS: 08/03/24, XY CHEST PORTABLE on DOS: 03/06 02/26 TECHNICAL DATA: 1 view of the chest was obtained. FINDINGS: Lines and tubes: ET in the mid thoracic trachea. NG in the stomach. Cardiomediastinal silhouette: Enlarged. Pulmonary vasculature: normal Lung expansion: normal Lung airspace: Right basilar consolidation. Lung interstitium: normal Pleura: normal Pneumothorax: no Bones: Unremarkable Other: no IMPRESSION: Right basilar consolidation could be aspiration. Tubes, positioned as above.
[2024-08-05 08:28] LABS: Base Excess -3.2 mmol/L (-2.0-3.0)
[2024-08-05] MEDS: LACTULOSE 20Gm/30ML SOLN NG SCH (17:11)
--- NOTE | 2024-08-05 17:19 | DVHPN2 ---
Progress Note - Dictate Date Seen: Aug 05, 2024 Medical Necessity Reason Pt with a Central, PICC or Fol: No Subjective Sedated on ventilator. Paracentesis not done today given no interventional radiology available. His ammonia level is slightly increased. vital signs Vital Sign Date Time Temp Pulse Resp B/P (MAP) Pulse Ox O2 Delivery O2 Flow Rate FiO2 08/05/24 16:48 99/58 08/05/24 16:15 98.4 59 14 96 209.1 08/05/24 16:00 Mechanical Ventilator+ 30 30 30 Total Intake and Output 08/04/24 08/04/24 08/05/24 15:00 23:00 07:00 Intake Total 1283.05 ml 1320.001 ml 1402.479 ml Output Total 1450 ml 2330 ml Balance 1283.05 ml -129.999 ml -927.521 ml medications Current Medications Medications Dose Ordered Sig/Pete Route Start Time Stop Time Status Last Admin Dose Admin Nitroglycerin 0.4 mg Q5MINP PRN SL 08/03/24 16:15 Morphine Sulfate 2 mg Q30M PRN IV 08/03/24 16:15 Ondansetron HCl 4 mg Q4HPRN PRN IV 08/03/24 16:15 Dextrose/Sodium Chloride 1,000 ml @ 75 mls/hr [id number] IV 08/03/24 16:15 08/05/24 07:39 75 MLS/HR Morphine Sulfate 2 mg Q4HPRN PRN IV 08/03/24 16:15 Piperacillin Sod/ Tazobactam Sod 100 ml @ 25 mls/hr Q8HR IV 08/03/24 22:00 08/05/24 10:37 25 MLS/HR Pantoprazole Sodium 40 mg DAILY IV 08/04/24 10:00 08/05/24 07:54 40 MG Furosemide 20 mg BIDD IV 08/03/24 18:00 08/05/24 15:54 20 MG Propranolol HCl 10 mg TID PO 08/03/24 22:00 08/05/24 05:23 10 MG Propofol 100 ml @ 2.799 mls/ hr Q24H IV 08/04/24 19:00 08/05/24 12:59 16.794 MLS/HR Fentanyl Citrate 250 ml @ 2.5 mls/hr Q24H IV 08/04/24 19:00 08/05/24 12:36 17.5 MLS/HR Norepinephrine Bitartrate 250 ml @ 3.75 mls/hr Q24H IV 08/04/24 19:00 08/05/24 16:48 22.5 MLS/HR Lactulose 60 ml TID NG 08/05/24 17:00 08/05/24 17:11 60 ML objective On ventilator comfortable without distress. HEENT neck supple no JVD. Heart regular rate and rhythm S1-S2. Lungs without rales wheezes. Abdomen distended tympanic to palpation positive bowel sounds. Extremities no edema. laboratory and microbiology Laboratory Tests 08/05/24 03:13 Test 08/05/24 03:13 Range/Units Serum Glucose 93 74-106 mg/dL Assessment/Plan Proceed with a paracentesis tomorrow by Interventional Radiology. Meantime I will increase his lactulose to 3 times a day given ammonia level has increased. Follow the labs and ammonia level in the morning. Clamp the NG tube and consider starting him on tube feeds with the dietary recommendations. Discussed with the nurse regarding care plan at bedside. Problems(with codes): (1) Liver cirrhosis (2) Ascites (3) Hepatic encephalopathy Plan discussed with: Other NUNO COLLADO MD Aug 05, 2024 17:19
--- NOTE | 2024-08-05 23:03 | DVHPN2 ---
Progress Note - Dictate Date Seen: Aug 05, 2024 Medical Necessity Reason Pt with a Central, PICC or Fol: Yes The following are medically ne: Tucker Catheter Reason for tucker catheter: Strict I&O Subjective Patient seen and examined at bedside. Sedated, intubated on mechanical ventilator. Overnight events reviewed. vital signs Vital Sign Date Time Temp Pulse Resp B/P (MAP) Pulse Ox O2 Delivery O2 Flow Rate FiO2 08/05/24 22:22 60 14 98/56 (70) 97 30 08/05/24 18:45 98.4 209.1 08/05/24 18:00 Mechanical Ventilator+ 30 Total Intake and Output 08/04/24 08/04/24 08/05/24 15:00 23:00 07:00 Intake Total 1283.05 ml 1320.001 ml 1402.479 ml Output Total 1450 ml 2330 ml Balance 1283.05 ml -129.999 ml -927.521 ml medications Current Medications Medications Dose Ordered Sig/Pete Route Start Time Stop Time Status Last Admin Dose Admin Nitroglycerin 0.4 mg Q5MINP PRN SL 08/03/24 16:15 Morphine Sulfate 2 mg Q30M PRN IV 08/03/24 16:15 Ondansetron HCl 4 mg Q4HPRN PRN IV 08/03/24 16:15 Dextrose/Sodium Chloride 1,000 ml @ 75 mls/hr [id number] IV 08/03/24 16:15 08/05/24 21:01 75 MLS/HR Morphine Sulfate 2 mg Q4HPRN PRN IV 08/03/24 16:15 Piperacillin Sod/ Tazobactam Sod 100 ml @ 25 mls/hr Q8HR IV 08/03/24 22:00 08/05/24 10:37 25 MLS/HR Pantoprazole Sodium 40 mg DAILY IV 08/04/24 10:00 08/05/24 07:54 40 MG Furosemide 20 mg BIDD IV 08/03/24 18:00 08/05/24 15:54 20 MG Propranolol HCl 10 mg TID PO 08/03/24 22:00 08/05/24 05:23 10 MG Propofol 100 ml @ 2.799 mls/ hr Q24H IV 08/04/24 19:00 08/05/24 18:19 16.794 MLS/HR Fentanyl Citrate 250 ml @ 2.5 mls/hr Q24H IV 08/04/24 19:00 08/05/24 12:36 17.5 MLS/HR Norepinephrine Bitartrate 250 ml @ 3.75 mls/hr Q24H IV 08/04/24 19:00 08/05/24 16:48 22.5 MLS/HR Lactulose 60 ml TID NG 08/05/24 17:00 08/05/24 17:11 60 ML objective Gen.: Patient lying in bed in medical ICU. Sedated, intubated on mechanical ventilator. Head: Normocephalic, atraumatic. Eyes: PERRLA. Ears: Normal external anatomy. Throat: Endotracheal tube and orogastric tube in place. Neck: Supple, trachea midline. Chest: Transmitted breath sounds bilaterally. Decreased air entry bilaterally. No wheezing. Bibasilar crackles. Cardiovascular: Positive S1, positive S2. Regular rate and rhythm. Abdomen: Positive bowel sounds in all 4 quadrants. Soft, nontender, nondistended. : Tucker in place. Normal external genitalia. Rectal: Deferred. Skin: Warm, dry. Intact. Extremities: 2+ radial pulses bilaterally. No lower extremity edema. Neuro: Sedated. laboratory and microbiology Laboratory Tests 08/05/24 03:13 Test 08/05/24 03:13 Range/Units Serum Glucose 93 74-106 mg/dL Assessment/Plan Impression: Acute hypoxic respiratory failure On mechanical ventilator Acute hepatic encephalopathy ALOC Aspiration pneumonitis Abdominal loculated ascites Events: Remains on vent support On AC mode; RR 14, VT 500, PEEP 5, FiO2 30% Sedated on Propofol, Fentanyl On pressors for hemodynamic support Levophed 12 mcg/min Titrate to keep mean arterial pressure greater than 65 mmHg. Continue antibiotics Started albumin Tapering down sedation Start Precedex if necessary Dietary consult. CPAP in the AM if patient following commands. IR for paracentesis in the AM. Labs and imaging reviewed. Rest of plan as noted below. Plan: s/p intubation on mechanical ventilator. On AC mode; RR 14, VT 500, PEEP 5, FiO2 30% Titrate FIO2 to keep O2 saturation above 90%. VAP bundle. Daily ABG and CXR while intubated Sedate for ventilator synchrony - on Fentanyl and Propofol. Taper sedation as tolerated. Improved ammonia level. On pressors for hemodynamic support Titrate to keep mean arterial pressure greater than 65 mmHg. Limited chest ultrasound shows trace right pleural effusion not amenable for thora. Limited abdominal ultrasound shows loculated LLQ ascites. IR consulted for paracentesis. Antibiotics. Monitor renal function Monitor electrolytes. Supplement as necessary. Monitor ins and outs. Maintain euvolemia. GI prophylaxis. DVT prophylaxis. Prognosis: Poor given patient's multiple co-morbidities. Condition: Critical Rest of plan per hospitalist and other consultants. A total of 35 minutes of critical care time was spent reviewing the patient record, examining the patient, making a diagnostic and therapeutic plan, discussing this plan with the medical personnel, following up on diagnostic studies and following the patient for clinical stability excluding any and all procedures. At least 50% of this time was spent in direct, [id number] contact. Thank you Dr. Skyler Reynoso MD, for allowing me to participate in this patient's care. Further recommendations will depend on the patient's clinical course. Please do not hesitate to contact me if you have any questions or concerns. This medical document was created using an electronic medical record system with [employer] dictation system. Although these documentations are being carefully reviewed, there may still be some phonetic and typographical changes. The errors are purely typographical, due to imperfection on the software program, and do not reflect any compromise in the patient's medical care. Plan discussed with: Other (RAUDEL Francis) Critical Care Time(min): 35 MARA DEVINE MD Aug 05, 2024 23:03
[2024-08-06] VITALS (102 sets, daily range): BP systolic 78–119; BP diastolic 48–77; PULSE 55–83; RESP 13–25; TEMP 98.1–99; O2SAT 94–100
[2024-08-06 03:53] LABS: Hematocrit 29.8 % (41.0-53.0); Hemoglobin 10.1 g/dL (13.5-17.5); Mean Corpuscular Hemoglobin 29.8 pg (28.0-32.0); Mean Corpuscular Hgb Conc. 33.9 g/dL (32.0-36.0); Mean Corpuscular Volume 87.9 fL (80.0-100.0); Platelet Count (auto) 218 10^3/uL (140-450); Red Blood Cells 3.39 10^6/uL (4.5-5.90); Red Cell Distribution Width 16.3 % (11.8-14.3); White Blood Cell 7.3 10^3/uL (4.4-10.8)
[2024-08-06 04:11] LABS: INR 1.23 (0.9-1.15); Partial Thromboplastin Time 32.5 SEC (24.5-34.5); Prothrombin Time 12.8 sec (9.3-11.8)
[2024-08-06 04:15] LABS: Band Neutrophils % (manual) 0; Basophils % (manual) 0 (0.0-2.0); Blast Cells 0; Metamyelocytes % 0; Monocytes % (manual) 0 (0-12); Myelocytes % 0; Promyelocytes % 0; Reactive Lymphocytes 0
[2024-08-06 04:16] LABS: Albumin 3.4 g/dL (3.2-4.8); Anion Gap 12 (5-15); Aspartate Aminotransferase 15 U/L (13-40); BUN/Creatinine Ratio 10.9 (10.0-20.0); Calcium 9.4 mg/dL (8.7-10.4); Carbon Dioxide 24 mmol/L (20-31); Chloride 106 mmol/L (98-107); Sodium 142 mmol/L (136-145); Total Protein 6.5 g/dL (5.7-8.2)
[2024-08-06 04:25] LABS: Alanine Aminotransferase < 9 U/L (7-40); Alkaline Phosphatase 334 U/L (46-116); Blood Urea Nitrogen 28 mg/dL (9-23); Glucose 116 mg/dL (74-106); Potassium 3.4 mmol/L (3.5-5.1)
--- NOTE | 2024-08-06 04:39 | DVH ---
CHEST RADIOGRAPH Indication: intubated Technique: Single frontal view of the chest was obtained Comparison: XY CHEST PORTABLE on DOS: 08/05/24 FINDINGS: Lines and Tubes: The endotracheal tube terminates 4.1 cm above the val[place]. The enteric tube terminate s in the stomach. Lungs: Mild bilateral opacities. Pleura: No effusion. No pneumothorax. Cardiomediastinal contours: Unremarkable Bones: No acute osseous abnormality. IMPRESSION: 1. Endotracheal tube terminates 4.1 cm above the valencia. Enteric tube terminates in the stomach. 2. Mild bilateral opacities may reflect atelectasis or pneumonia.
[2024-08-06 06:38] LABS: Lymphocytes % (manual) 10 (10.0-50.0)
[2024-08-06 06:39] LABS: Anisocytosis Slight; Eosinophils % (manual) 17 (0-7); Platelet Estimate Adequate
[2024-08-06] MEDS: POTASSIUM CHL 20MEQ/100ML 100 ML IV ONE (06:53)
[2024-08-06 06:56] LABS: Base Excess -0.7 mmol/L (-2.0-3.0)
--- NOTE | 2024-08-06 07:52 | DVH ---
Limited Abdominal Ultrasound - Ascites Evaluation Clinical History: FLUID CHECK FOR POSSIBLE PARACENTESIS Comparison: US ABDOMEN LIMITED on DOS: 06/15/24, US ABDOMEN LIMITED on DOS: 05/31/24, US ABDOMEN LIMIT ED on DOS: 05/15/24 Technique/Findings/Impression: Limited sonographic evaluation of the abdomen was performed to assess for ascites. There is small volume septated ascites likely not amenable for paracentesis at this time.
[2024-08-06] MEDS: ONDANSETRON HCL 4 MG/2 ML VIAL IV PRN (10:18)
--- NOTE | 2024-08-06 12:19 | DVHPN2 ---
Progress Note - Dictate Date Seen: Aug 06, 2024 Medical Necessity Reason Pt with a Central, PICC or Fol: No The following are medically ne: Tucker Catheter Reason for tucker catheter: Strict I&O Subjective Sedated on ventilator. Paracentesis is not done due to loculated fluid collection and not amenable to paracentesis per Radiology. vital signs Vital Sign Date Time Temp Pulse Resp B/P (MAP) Pulse Ox O2 Delivery O2 Flow Rate FiO2 08/06/24 11:20 67 15 87/54 (65) 96 30 08/06/24 06:00 98.8 209.8 08/06/24 06:00 Mechanical Ventilator+ 30 Total Intake and Output 08/05/24 08/05/24 08/06/24 15:00 23:00 07:00 Intake Total 1174.352 ml 1384.244 ml 1864.741 ml Output Total 2560 ml 3560 ml Balance 1174.352 ml -1175.756 ml -1695.259 ml medications Current Medications Medications Dose Ordered Sig/Pete Route Start Time Stop Time Status Last Admin Dose Admin Nitroglycerin 0.4 mg Q5MINP PRN SL 08/03/24 16:15 Morphine Sulfate 2 mg Q30M PRN IV 08/03/24 16:15 Ondansetron HCl 4 mg Q4HPRN PRN IV 08/03/24 16:15 08/06/24 10:18 4 MG Dextrose/Sodium Chloride 1,000 ml @ 75 mls/hr [id number] IV 08/03/24 16:15 08/05/24 21:01 75 MLS/HR Morphine Sulfate 2 mg Q4HPRN PRN IV 08/03/24 16:15 Piperacillin Sod/ Tazobactam Sod 100 ml @ 25 mls/hr Q8HR IV 08/03/24 22:00 08/06/24 05:13 25 MLS/HR Pantoprazole Sodium 40 mg DAILY IV 08/04/24 10:00 08/06/24 09:32 40 MG Furosemide 20 mg BIDD IV 08/03/24 18:00 08/06/24 05:13 20 MG Propranolol HCl 10 mg TID PO 08/03/24 22:00 08/06/24 05:22 10 MG Propofol 100 ml @ 2.799 mls/ hr Q24H IV 08/04/24 19:00 12/2/24 00:58 22.392 MLS/HR Fentanyl Citrate 250 ml @ 2.5 mls/hr Q24H IV 08/04/24 19:00 08/06/24 05:05 10 MLS/HR Norepinephrine Bitartrate 250 ml @ 3.75 mls/hr Q24H IV 08/04/24 19:00 08/06/24 05:24 18.75 MLS/HR Lactulose 60 ml TID NG 08/05/24 17:00 08/06/24 05:13 60 ML objective Remains ventilator dependent and sedated comfortable without distress. HEENT pupils equal round react to light. Heart regular rate and rhythm bradycardia S1 plus S2. Lungs fair air movement without any audible wheezing. Abdomen firm with hypoactive bowel sounds. Extremities no edema. laboratory and microbiology Laboratory Tests 08/06/24 03:27 Test 08/06/24 03:27 Range/Units Serum Glucose 116 H 74-106 mg/dL Assessment/Plan To continue current antibiotics and pressors as he is on. Given his mild bradycardia I will cut down his propranolol to 5 mg t.i.d. from 10 mg t.i.d.. Given his ammonia level is still elevated I will increase lactulose to 60 mL 4 times a day. We will do daily labs and ammonia levels. Replace potassium as needed to keep about 3.5 given patient is receiving lactulose and Lasix. Otherwise continue rest of supportive care and treatment. Patient apparently had few days of vomiting per nurse today therefore NG tube is connected to suction. Can hold oral tube feeds. Consider TPN if unable to be successfully extubated in the next day or two. Discussed with the care plan with the nurse at bedside. Problems(with codes): (1) Toxic encephalopathy (2) Pneumonia (3) Hepatic encephalopathy (4) Ascites (5) Liver cirrhosis Plan discussed with: Other NUNO COLLADO MD Aug 06, 2024 12:19
[2024-08-06] MEDS: LACTULOSE 20Gm/30ML SOLN NG SCH (13:32)
[2024-08-06] MEDS: PROPRANOLOL HCL 20 MG TAB PO SCH (13:44)
--- NOTE | 2024-08-06 14:54 | DVHINCON2 ---
Date of service: Aug 06, 2024 Reason for Consultation Acute kidney injury History of Present Illness 48-year-old male with past medical history of cirrhosis with recurrent ascites with multiple hospitalizations for paracentesis, chronic kidney disease stage IIIB, atrial fibrillation, COPD. Patient presents to the hospital altered mental status. Unable to obtain history as patient is already intubated. Patient is currently in the ICU intubated on pressors. Nephrology consulted due to elevated creatinine level. admitted for AMS Patient is not End-stage renal disease Allergies: Coded Allergies: Butorphanol (Verified Allergy, Unknown, 04/03/15) Ketorolac (Verified Allergy, Unknown, 04/03/15) NSAIDs (Verified Allergy, Unknown, 04/03/15) Sumatriptan (Verified Allergy, Unknown, 04/03/15) Tromethamine (Verified Allergy, Unknown, 04/03/15) Uncoded Allergies: NUBANE (Allergy, Unknown, 04/03/15) Home Meds Active Scripts Lactulose (Lactulose) 10 Gm/15 Ml Kim, 20 GM PO TID, #240 ML 2 Refills Prov:NUNO COLLADO MD 04/17/24 Furosemide (Furosemide) 40 Mg Tab, 40 MG PO DAILY, #30 TAB Prov:SKY LESLIE MD 10/23/23 Reported Medications Acetaminophen W/ Codeine (Tylenol W/Cod #3) 1 Tab Tb, 1 TAB PO, TAB 04/01/24 Propranolol HCl (Propranolol Hydrochloride) 10 Mg Tab, 10 MG PO TID, TAB 04/01/24 Omeprazole Magnesium (Omeprazole) 20 Mg Tab, 20 MG PO DAILY, TAB 03/08/24 Ondansetron Odt 4MG Tab (ZOFRAN PO) 4 Mg Tb, 4 MG PO TID, TAB ODT TAB-DISSOLVE IN MOUTH, THEN SWALLOW 03/08/24 Current Medications Current Medications Medications (Trade) Dose Ordered Sig/Pete Route PRN Reason Start Time Stop Time Status Last Admin Lactulose 60 ml TID NG 08/05/24 17:00 08/06/24 12:17 DC 08/06/24 05:13 Lactulose 60 ml QID NG 08/06/24 12:15 08/06/24 13:32 Propranolol HCl (Inderal Tablet) 5 mg TID PO 08/06/24 14:00 Family History: CKD (chronic kidney disease) G8 MOTHER (COPD) G8 FATHER (BACK PAIN) Chronic obstructive pulmonary disease G8 MOTHER (COPD) G8 FATHER (BACK PAIN) FHx: atrial fibrillation G8 MOTHER (COPD) G8 FATHER (BACK PAIN) Hypertension G8 MOTHER (COPD) G8 FATHER (BACK PAIN) Review of Systems Can not obtain due to critical illness H&P Exam Vital Signs/I&O Vital Sign Date Time Temp Pulse Resp B/P (MAP) Pulse Ox O2 Delivery O2 Flow Rate FiO2 08/06/24 13:44 55 109/67 08/06/24 13:12 14 96 30 08/06/24 06:00 98.8 209.8 08/06/24 06:00 Mechanical Ventilator+ 30 Intake and Output 08/05/24 08/06/24 19:00 07:00 Intake Total 2026.528 ml 2396.809 ml Output Total 2560 ml 3560 ml Balance -533.472 ml -1163.191 ml Intake Oral 250 ml 210 ml IV Total 1776.528 ml 2186.809 ml Output Urine Total 2550 ml 3550 ml Urine/Stool Mix 10 ml 10 ml Gastric Drainage Total 0 ml 0 ml Physical Exam Middle-aged male Intubated on pressor Distended abdomen No pitting edema Gamez catheter Non tachycardic Labs/Diagnostic Data Labs/Diagnostic Data Laboratory Tests Test 08/06/24 06:50 08/06/24 03:27 08/05/24 07:34 08/05/24 03:13 Range/Units Blood Gas Specimen Type Arterial Arterial Blood Gas Sample Site Left radial Left radial Blood Gas Patient Temperature 37.0 37.0 Arterial Blood Date Drawn [id number] Arterial Blood pH 7.391 7.371 7.350-7.450 Arterial Blood Partial Pressure CO2 40.8 38.3 35.0-48.0 mmHg Arterial Blood Partial Pressure O2 85.1 86.6 83.0-108.0 mmHg Arterial Blood HCO3 24.2 21.7 21.0-28.0 mmol/L Arterial Blood Oxygen Saturation 95.7 95.7 94.0-98.0 % Arterial Blood Base Excess -0.7 -3.2 L -2.0-3.0 mmol/L Arterial Blood Oxyhemoglobin 95.0 94.7 94.0-98.0 % Arterial Blood Carboxyhemoglobin 0.6 0.8 0.5-1.5 % Arterial Blood Methemoglobin 0.1 0.2 0.0-1.5 % Kevin Test Modified Modified Blood Gas Total Hemoglobin 12.00 L 9.30 L 13.5-17.5 g/dL Blood Gas Set Respiration Rate 14.0 14.0 Blood Gas Modality Vent - ac Vent - ac FiO2 % 30.0 30.0 Blood Gas Tidal Volume 500.0 500.0 Blood Gas PEEP or CPAP 5.0 5.0 White Blood Count 7.3 7.5 4.4-10.8 10^3/uL Red Blood Count 3.39 L 3.34 L 4.5-5.90 10^6/uL Hemoglobin 10.1 L 9.9 L 13.5-17.5 g/dL Hematocrit 29.8 L 29.4 L 41.0-53.0 % Mean Corpuscular Volume 87.9 88.0 80.0-100.0 fL Mean Corpuscular Hemoglobin 29.8 29.7 28.0-32.0 pg Mean Corpuscular Hemoglobin Concent 33.9 33.8 32.0-36.0 g/dL Red Cell Distribution Width 16.3 H 16.8 H 11.8-14.3 % Platelet Count 218 240 140-450 10^3/uL Mean Platelet Volume 8.0 8.3 6.9-10.8 fL Neutrophils (%) (Auto) 37.0-80.0 % Lymphocytes (%) (Auto) 10.0-50.0 % Monocytes (%) (Auto) 0.0-12.0 % Eosinophils (%) (Auto) 0.0-7.0 % Basophils (%) (Auto) 0.0-2.0 % Neutrophils # (Auto) 1.6-8.6 10 ^3/uL Lymphocytes # (Auto) 0.4-5.4 10 ^3/uL Monocytes # (Auto) 0-1.3 10 ^3/uL Differential Total Cells Counted 87.0 100.0 100 Neutrophils % (Manual) 60 59 37.0-80.0 Band Neutrophils % (Manual) 0 0 Lymphocytes % (Manual) 10 14 10.0-50.0 Monocytes % (Manual) 0 7 0-12 Eosinophils % (Manual) 17 H 20 H 0-7 Basophils % (Manual) 0 0 0.0-2.0 Metamyelocytes % (manual) 0 0 Myelocytes % (Manual) 0 0 Promyelocytes % (Manual) 0 0 Blast Cells % (Manual) 0 0 Reactive Lymphocytes 0 0 Platelet Estimate Adequate Adequate Anisocytosis (manual) Slight Prothrombin Time 12.8 H 9.3-11.8 sec Prothrombin Time INR 1.23 H 0.9-1.15 Activated Partial Thromboplast Time 32.5 24.5-34.5 SEC Sodium Level 142 141 136-145 mmol/L Potassium Level 3.4 L 3.8 3.5-5.1 mmol/L Chloride Level 106 107 98-107 mmol/L Carbon Dioxide Level 24 22 20-31 mmol/L Anion Gap 12 12 5-15 Blood Urea Nitrogen 28 H 31 H 9-23 mg/dL Creatinine 2.57 H 2.88 H 0.700-1.30 mg/dL Glomerular Filtration Rate Calc 30 26 >90 mL/min BUN/Creatinine Ratio 10.9 10.8 10.0-20.0 Serum Glucose 116 H 93 74-106 mg/dL Calcium Level 9.4 9.5 8.7-10.4 mg/dL Total Bilirubin 2.0 H 1.7 H 0.2-1.0 mg/dL Aspartate Amino Transferase (AST) 15 21 13-40 U/L Alanine Aminotransferase (ALT) < 9 < 9 7-40 U/L Alkaline Phosphatase 334 H 320 H 46-116 U/L Ammonia 112 *H 111 *H 11-32 umol/L Total Protein 6.5 6.6 5.7-8.2 g/dL Albumin 3.4 3.4 3.2-4.8 g/dL Test 08/04/24 07:27 08/04/24 03:21 08/03/24 13:56 08/03/24 13:39 Range/Units Blood Gas Specimen Type Arterial Arterial Blood Gas Sample Site Left radial Right radial Blood Gas Patient Temperature 37.0 37.0 Arterial Blood Date Drawn [id number] Arterial Blood pH 7.420 7.436 7.350-7.450 Arterial Blood Partial Pressure CO2 33.9 L 31.2 L 35.0-48.0 mmHg Arterial Blood Partial Pressure O2 103.5 92.9 83.0-108.0 mmHg Arterial Blood HCO3 21.5 20.5 L 21.0-28.0 mmol/L Arterial Blood Oxygen Saturation 97.3 96.4 94.0-98.0 % Arterial Blood Base Excess -2.5 L -3.0 L -2.0-3.0 mmol/L Arterial Blood Oxyhemoglobin 97.1 95.5 94.0-98.0 % Arterial Blood Carboxyhemoglobin 0.2 L 0.3 L 0.5-1.5 % Arterial Blood Methemoglobin 0.0 0.6 0.0-1.5 % Kevin Test Modified Modified Blood Gas Total Hemoglobin 9.20 L 9.70 L 13.5-17.5 g/dL Blood Gas Set Respiration Rate 14.0 14.0 Blood Gas Modality Vent - ac Vent - ac FiO2 % 30.0 30.0 Blood Gas Tidal Volume 500.0 500.0 Blood Gas PEEP or CPAP 5.0 5.0 White Blood Count 7.5 4.4-10.8 10^3/uL Red Blood Count 3.21 L 4.5-5.90 10^6/uL Hemoglobin 9.4 L 13.5-17.5 g/dL Hematocrit 28.3 L 41.0-53.0 % Mean Corpuscular Volume 88.1 80.0-100.0 fL Mean Corpuscular Hemoglobin 29.3 28.0-32.0 pg Mean Corpuscular Hemoglobin Concent 33.3 32.0-36.0 g/dL Red Cell Distribution Width 16.6 H 11.8-14.3 % Platelet Count 245 140-450 10^3/uL Mean Platelet Volume 8.2 6.9-10.8 fL Neutrophils (%) (Auto) 55.2 37.0-80.0 % Lymphocytes (%) (Auto) 14.1 10.0-50.0 % Monocytes (%) (Auto) 15.5 H 0.0-12.0 % Eosinophils (%) (Auto) 13.3 H 0.0-7.0 % Basophils (%) (Auto) 1.9 0.0-2.0 % Neutrophils # (Auto) 4.1 1.6-8.6 10 ^3/uL Lymphocytes # (Auto) 1.1 0.4-5.4 10 ^3/uL Monocytes # (Auto) 1.2 0-1.3 10 ^3/uL Eosinophils # (Auto) 1.0 H 0-0.8 10 ^3/uL Basophils # (Auto) 0.1 0-0.2 10 ^3/uL Nucleated Red Blood Cells 0.0 % Sodium Level 142 136-145 mmol/L Potassium Level 3.7 3.5-5.1 mmol/L Chloride Level 109 H 98-107 mmol/L Carbon Dioxide Level 21 20-31 mmol/L Anion Gap 12 5-15 Blood Urea Nitrogen 32 H 9-23 mg/dL Creatinine 2.97 H 0.700-1.30 mg/dL Glomerular Filtration Rate Calc 25 >90 mL/min BUN/Creatinine Ratio 10.8 10.0-20.0 Serum Glucose 83 74-106 mg/dL Calcium Level 9.7 8.7-10.4 mg/dL Ammonia 85 H 11-32 umol/L Influenza Type A Antigen Negative Negative Influenza Type B Antigen Negative Negative SARS-CoV-2 Antigen (Rapid) Negative NEGATIVE Test 08/03/24 12:00 08/03/24 11:22 Range/Units Urine Color Light-yellow Yellow Urine Clarity Clear Clear Urine pH 7.5 5.0-9.0 Urine Specific [employer] [place] 1.015 1.001-1.035 Urine Protein Negative Negative Urine Ketones Negative Negative Urine Blood Negative Negative /uL Urine Nitrite Negative Negative Urine Bilirubin Negative Negative Urine Urobilinogen 2 H Negative mg/dL Urine Leukocyte Esterase Negative Negative /uL Urine RBC 1 0 - 3 /hpf Urine WBC 3 0 - 3 /hpf Urine Squamous Epithelial Cells None seen <5 /hpf Urine Bacteria None seen None Seen /hpf Urine Glucose Normal Normal mg/dL Urine Opiates Screen Neg NEGATIVE Urine Fentanyl Screen Neg NEGATIVE Urine Barbiturates Screen Neg NEGATIVE Urine Phencyclidine Screen Neg NEGATIVE Urine Amphetamines Screen Neg NEGATIVE Urine Benzodiazepines Screen Neg NEGATIVE Urine Cocaine Screen Neg NEGATIVE Urine Cannabinoids Screen Neg NEGATIVE White Blood Count 6.8 4.4-10.8 10^3/uL Red Blood Count 3.35 L 4.5-5.90 10^6/uL Hemoglobin 9.7 L 13.5-17.5 g/dL Hematocrit 29.4 L 41.0-53.0 % Mean Corpuscular Volume 87.6 80.0-100.0 fL Mean Corpuscular Hemoglobin 28.9 28.0-32.0 pg Mean Corpuscular Hemoglobin Concent 33.0 32.0-36.0 g/dL Red Cell Distribution Width 16.6 H 11.8-14.3 % Platelet Count 233 140-450 10^3/uL Mean Platelet Volume 8.3 6.9-10.8 fL Neutrophils (%) (Auto) 37.0-80.0 % Lymphocytes (%) (Auto) 10.0-50.0 % Monocytes (%) (Auto) 0.0-12.0 % Basophils (%) (Auto) 0.0-2.0 % Neutrophils # (Auto) 1.6-8.6 10 ^3/uL Lymphocytes # (Auto) 0.4-5.4 10 ^3/uL Monocytes # (Auto) 0-1.3 10 ^3/uL Differential Total Cells Counted 100.0 100 Neutrophils % (Manual) 61 37.0-80.0 Band Neutrophils % (Manual) 0 Lymphocytes % (Manual) 13 10.0-50.0 Monocytes % (Manual) 20 H 0-12 Eosinophils % (Manual) 6 0-7 Basophils % (Manual) 0 0.0-2.0 Metamyelocytes % (manual) 0 Myelocytes % (Manual) 0 Promyelocytes % (Manual) 0 Blast Cells % (Manual) 0 Reactive Lymphocytes 0 Platelet Estimate Adequate Prothrombin Time 12.4 H 9.3-11.8 sec Prothrombin Time INR 1.18 H 0.9-1.15 Activated Partial Thromboplast Time 28.5 24.5-34.5 SEC Sodium Level 140 136-145 mmol/L Potassium Level 4.6 3.5-5.1 mmol/L Chloride Level 105 98-107 mmol/L Carbon Dioxide Level 22 20-31 mmol/L Anion Gap 13 5-15 Blood Urea Nitrogen 37 H 9-23 mg/dL Creatinine 3.17 H 0.700-1.30 mg/dL Glomerular Filtration Rate Calc 23 >90 mL/min BUN/Creatinine Ratio 11.7 10.0-20.0 Serum Glucose 104 74-106 mg/dL Lactic Acid Level 1.5 0.4-2.0 mmol/L Calcium Level 10.0 8.7-10.4 mg/dL Magnesium Level 2.0 1.6-2.6 mg/dL Total Bilirubin 1.7 H 0.2-1.0 mg/dL Aspartate Amino Transferase (AST) 29 13-40 U/L Alanine Aminotransferase (ALT) < 9 7-40 U/L Alkaline Phosphatase 400 H 46-116 U/L Ammonia 240 *H 11-32 umol/L Troponin I High Sensitivity 3 L </=54 ng/L B-Type Natriuretic Peptide 51.01 0-100 pg/mL Total Protein 7.0 5.7-8.2 g/dL Albumin 3.4 3.2-4.8 g/dL Lipase 32 12-53 U/L Plasma/Serum Blood Alcohol < 3.0 <10 mg/dL Microbiology Date/Time Source Procedure Growth Status 08/04/24 03:44 Nose MRSA Screen - Final Complete 08/03/24 11:54 Sputum Gram Stain - Final Complete 08/03/24 11:54 Sputum Respiratory Culture - Final Complete Assessment Acute kidney injury hemodynamically mediated Chronic kidney disease stage IIIB Acute respiratory failure Hepatic encephalopathy with elevated ammonia Ascites Setting of cirrhosis Anemia Monitor urinary output Currently on IV fluids Levophed to maintain mean arterial pressure greater than 65 Strict Is&Os Lactulose due to hepatic encephalopathy Avoid contrast studies at this time Guarded prognosis critical care time 35mins Plan discussed with: Other SARMAD JARRELL MD Aug 06, 2024 14:54
--- NOTE | 2024-08-06 21:42 | DVHPN2 ---
Progress Note - Dictate Date Seen: Aug 06, 2024 Medical Necessity Reason Pt with a Central, PICC or Fol: Yes The following are medically ne: Tucker Catheter Reason for tucker catheter: Strict I&O Subjective Patient seen and examined at bedside. Sedated, intubated on mechanical ventilator. Overnight events reviewed. vital signs Vital Sign Date Time Temp Pulse Resp B/P (MAP) Pulse Ox O2 Delivery O2 Flow Rate FiO2 08/06/24 20:00 60 19 113/70 (84) 100 30 08/06/24 18:45 98.2 208.8 08/06/24 18:00 Mechanical Ventilator+ 30 Total Intake and Output 08/05/24 08/05/24 08/06/24 15:00 23:00 07:00 Intake Total 1174.352 ml 1384.244 ml 1974.388 ml Output Total 2560 ml 3560 ml Balance 1174.352 ml -1175.756 ml -1585.612 ml medications Current Medications Medications Dose Ordered Sig/Pete Route Start Time Stop Time Status Last Admin Dose Admin Nitroglycerin 0.4 mg Q5MINP PRN SL 08/03/24 16:15 Morphine Sulfate 2 mg Q30M PRN IV 08/03/24 16:15 Ondansetron HCl 4 mg Q4HPRN PRN IV 08/03/24 16:15 08/06/24 10:18 4 MG Dextrose/Sodium Chloride 1,000 ml @ 75 mls/hr [id number] IV 08/03/24 16:15 08/06/24 13:33 75 MLS/HR Morphine Sulfate 2 mg Q4HPRN PRN IV 08/03/24 16:15 Piperacillin Sod/ Tazobactam Sod 100 ml @ 25 mls/hr Q8HR IV 08/03/24 22:00 08/06/24 13:43 25 MLS/HR Pantoprazole Sodium 40 mg DAILY IV 08/04/24 10:00 08/06/24 09:32 40 MG Furosemide 20 mg BIDD IV 08/03/24 18:00 08/06/24 17:38 20 MG Propofol 100 ml @ 2.799 mls/ hr Q24H IV 08/04/24 19:00 08/06/24 15:59 8.397 MLS/HR Fentanyl Citrate 250 ml @ 2.5 mls/hr Q24H IV 08/04/24 19:00 08/06/24 05:05 10 MLS/HR Norepinephrine Bitartrate 250 ml @ 3.75 mls/hr Q24H IV 08/04/24 19:00 08/06/24 05:24 18.75 MLS/HR Lactulose 60 ml QID NG 08/06/24 12:15 08/06/24 17:38 60 ML Propranolol HCl 5 mg TID PO 08/06/24 14:00 objective Gen.: Patient lying in bed in medical ICU. Sedated, intubated on mechanical ventilator. Head: Normocephalic, atraumatic. Eyes: PERRLA. Ears: Normal external anatomy. Throat: Endotracheal tube and orogastric tube in place. Neck: Supple, trachea midline. Chest: Transmitted breath sounds bilaterally. Decreased air entry bilaterally. No wheezing. Bibasilar crackles. Cardiovascular: Positive S1, positive S2. Regular rate and rhythm. Abdomen: Positive bowel sounds in all 4 quadrants. Soft, nontender, nondistended. : Tucker in place. Normal external genitalia. Rectal: Deferred. Skin: Warm, dry. Intact. Extremities: 2+ radial pulses bilaterally. No lower extremity edema. Neuro: Sedated. laboratory and microbiology Laboratory Tests 08/06/24 03:27 Test 08/06/24 03:27 Range/Units Serum Glucose 116 H 74-106 mg/dL Assessment/Plan Impression: Acute hypoxic respiratory failure On mechanical ventilator Acute hepatic encephalopathy ALOC Aspiration pneumonitis Abdominal loculated ascites Events: Remains on vent support On AC mode; RR 14, VT 500, PEEP 5, FiO2 30% Sedated on Propofol, Fentanyl On pressors for hemodynamic support Levophed 10 mcg/min Titrate to keep mean arterial pressure greater than 65 mmHg. NGT to low intermittent suction. Continue antibiotics Tapered sedation Patient had episode of nausea/vomiting. F/u Dietary recommendations Will reattempt CPAP in AM if patient following commands. Paracentesis not performed due to loculated fluid collection not amenable to paracentesis, per Radiology Labs and imaging reviewed. Rest of plan as noted below. Plan: s/p intubation on mechanical ventilator. On AC mode; RR 14, VT 500, PEEP 5, FiO2 30% Titrate FIO2 to keep O2 saturation above 90%. VAP bundle. Daily ABG and CXR while intubated Sedate for ventilator synchrony - on Fentanyl and Propofol. Taper sedation as tolerated. Improved ammonia level. On pressors for hemodynamic support Titrate to keep mean arterial pressure greater than 65 mmHg. Limited chest ultrasound shows trace right pleural effusion not amenable for thora. Limited abdominal ultrasound shows loculated LLQ ascites. IR consulted for paracentesis. Antibiotics. Monitor renal function Monitor electrolytes. Supplement as necessary. Monitor ins and outs. Maintain euvolemia. GI prophylaxis. DVT prophylaxis. Prognosis: Poor given patient's multiple co-morbidities. Condition: Critical Rest of plan per hospitalist and other consultants. A total of 35 minutes of critical care time was spent reviewing the patient record, examining the patient, making a diagnostic and therapeutic plan, discussing this plan with the medical personnel, following up on diagnostic studies and following the patient for clinical stability excluding any and all procedures. At least 50% of this time was spent in direct, [id number] contact. Thank you Dr. Skyler Reynoso MD, for allowing me to participate in this patient's care. Further recommendations will depend on the patient's clinical course. Please do not hesitate to contact me if you have any questions or concerns. This medical document was created using an electronic medical record system with [id number] computerized dictation system. Although these documentations are being carefully reviewed, there may still be some phonetic and typographical changes. The errors are purely typographical, due to imperfection on the software program, and do not reflect any compromise in the patient's medical care. Plan discussed with: Other (RAUDEL Reyes) Critical Care Time(min): 35 MARA DEVINE MD Aug 06, 2024 21:42
[2024-08-07] VITALS (99 sets, daily range): BP systolic 82–126; BP diastolic 48–75; PULSE 50–86; RESP 11–20; TEMP 97.7–98.8; O2SAT 97–100
[2024-08-07 04:15] LABS: Basophils # (auto) 0.1 10 ^3/uL (0-0.2); Basophils % (auto) 1.5 % (0.0-2.0); Eosinophils % (auto) 12.6 % (0.0-7.0); Hematocrit 32.1 % (41.0-53.0); Hemoglobin 10.7 g/dL (13.5-17.5); Lymphocytes # (auto) 0.7 10 ^3/uL (0.4-5.4); Lymphocytes % (auto) 8.5 % (10.0-50.0); Mean Corpuscular Hemoglobin 29.1 pg (28.0-32.0); Mean Corpuscular Hgb Conc. 33.4 g/dL (32.0-36.0); Mean Corpuscular Volume 87.2 fL (80.0-100.0); Monocytes # (auto) 1.1 10 ^3/uL (0-1.3); Monocytes % (auto) 13.7 % (0.0-12.0); Neutrophils # (auto) 5.3 10 ^3/uL (1.6-8.6); Neutrophils % (auto) 63.7 % (37.0-80.0); Nucleated Red Blood Cells % 0.1 %; Platelet Count (auto) 227 10^3/uL (140-450); Red Blood Cells 3.68 10^6/uL (4.5-5.90); Red Cell Distribution Width 16.6 % (11.8-14.3); White Blood Cell 8.3 10^3/uL (4.4-10.8)
[2024-08-07 04:26] LABS: Anion Gap 14 (5-15); Carbon Dioxide 24 mmol/L (20-31); Chloride 107 mmol/L (98-107); Potassium 3.2 mmol/L (3.5-5.1); Sodium 145 mmol/L (136-145)
[2024-08-07 04:28] LABS: Calcium 9.6 mg/dL (8.7-10.4)
[2024-08-07 04:32] LABS: BUN/Creatinine Ratio 10.2 (10.0-20.0); Blood Urea Nitrogen 23 mg/dL (9-23); Glucose 121 mg/dL (74-106)
--- NOTE | 2024-08-07 04:33 | DVH ---
CHEST RADIOGRAPH Indication: intubated Technique: Single frontal view of the chest was obtained COMPARISON: XY CHEST PORTABLE on DOS: 08/06/24, XY CHEST PORTABLE on DOS: 08/05/24, XY CHEST PORTABLE o n DOS: 08/04/24 FINDINGS: Lines and Tubes: Endotracheal tube and enteric catheter in satisfactory position. Lungs: Multifocal airspace disease. Pleura: No effusion. No pneumothorax. Cardiomediastinal contours: Unremarkable Bones: Unremarkable IMPRESSION: Lines and tubes in satisfactory position. No significant interval change.
[2024-08-07] MEDS: POTASSIUM CHL 20MEQ/100ML 100 ML IV ONE (07:04)
[2024-08-07 07:36] LABS: Base Excess 0.5 mmol/L (-2.0-3.0)
--- NOTE | 2024-08-07 08:55 | DVHNC2 ---
Procedure - ULTRASOUND-GUIDED RIGHT SUBCLAVIAN INTERNAL JUGULAR CENTRAL VENOUS CANNULATION CPT Codes: 39549 (ultrasound guidance) 99422 (insertion of non-tunneled centrally inserted central venous catheter) 94096 (CXR interpretation) Time out time: 0805 am Patient medications and allergies reviewed. The risks and benefits of the procedure and the sedation options and risk were discussed with the patient's healthcare proxy. All questions were answered and informed consent was obtained. Patient identification and proposed procedure were verified prior to the procedure by the physician, and a nurse in the patient's room. The heart rate, respiratory rate, oxygen saturations, blood pressure, adequacy of pulmonary ventilation, and response to care were monitored throughout the procedure. The physical status of the patient was reassessed after the procedure. Date: 08/07/24 PHYSICIAN: Mara Crockett PREOPERATIVE DIAGNOSIS: Septic shock POSTOPERATIVE DIAGNOSIS: Septic shock PROCEDURE PERFORMED: Limited Ultrasound-guided RIGHT SUBCLAVIAN jugular central line placement. ANESTHESIA: 2 mL of 1% lidocaine plain. ESTIMATED BLOOD LOSS: less than 5 mL. SPECIMENS: None. COMPLICATIONS: None. INDICATIONS FOR PROCEDURE: The patient is in need of large bore IV access for administration of fluids, including blood products and vasoactive drugs, possible transvenous cardiac pacing and CVP monitoring for hemodynamic instability. DESCRIPTION OF PROCEDURE IN DETAIL: The patient was lying in the Trendelenburg position with head turned 30 degrees away from the insertion site. The skin was thoroughly sponged with chlorhexidine and allowed to dry. All persons involved were shielded with hair nets, face masks and sterile gowns. With sterile-gloved hands the right neck area was draped with the large disposable sterile field provided in the pre-manufactured kit. The skin and subcutaneous tissues superficial to the RIGHT SUBCLAVIAN vein were anesthetized with 2 mL of 1% lidocaine. The RIGHT SUBCLAVIAN vein was identified on ultrasound using the linear ultrasound probe in the transverse orientation. The subclavian artery was identified and avoided utilizing color-flow. The subclavian vein was then placed in the center of the ultrasound field and compressed for patency. A movement artifact was identified as the needle was advanced through the skin and advanced toward the vessel. A real time hyperechoic signal revealed visualization of vascular needle entry into the lumen as blood was noted to flashback in the syringe. The needle was then held in place while the guide wire was advanced. The needle was then removed. Direct visualization of guide wire location within the vein was noted on ultrasound indicating proper placement and was document in the electronic medical record chart. A skin dilator was advanced over the guidewire and removed, and the triple-lumen catheter was then advanced over the guide wire into proper position. The guide wire was removed and discarded. The ports were aspirated which showed good blood return and then carefully flushed with normal saline. The catheter was stabilized and sutured to the skin with 2-0 silk at 2 anchor points. A sterile bio-patch and dressing was placed over the catheter, including the insertion site. The patient tolerated the procedure well. A chest x-ray was ordered for position confirmation. I reviewed the image immediately after it was taken at bedside. Post-procedure chest x-ray demonstrates the central line in the superior vena and no evidence of any pneumothorax. An image recording of the procedure accompanies the chart. MARA CROCKETT MD Aug 07, 2024 08:55
--- NOTE | 2024-08-07 08:56 | DVHNC2 ---
Procedure - Radial arterial line procedure note Indication: Hemodynamic monitoring, frequent blood ABG draws. Reverberatory Furnace Operator: Dr. Crockett Date: 08/07/24 Time: 0829 am Consent: Consent was obtained from patient's healthcare proxy prior to procedure. Indications, risks, and benefits were explained at length. Patient medications and allergies reviewed. The risks and benefits of the procedure and the sedation options and risk were discussed with the patient's healthcare proxy. All questions were answered and informed consent was obtained. Patient identification and proposed procedure were verified prior to the procedure by the physician, and a nurse in the patient's room. The heart rate, respiratory rate, oxygen saturations, blood pressure, adequacy of pulmonary ventilation, and response to care were monitored throughout the procedure. The physical status of the patient was reassessed after the procedure. Procedure summary: A time-out was performed. My hands were washed immediately prior to the procedure. I wore surgical cap, mask with protective eyewear, sterile gown and sterile gloves throughout the procedure. After an Kevin test was performed to ensure adequate perfusion, the RIGHT wrist was prepped using chlorhexidine scrub and draped in sterile fashion using sterile towels. The radial pulse was identified with the use of ultrasound. The wrist was positioned in the usual fashion. Anesthesia was achieved using 1% lidocaine. Using the radial arterial line kit, needle was inserted into the radial artery using ultrasound guidance. Arterial blood flow was seen to pulsate in the flash chamber. The internal guidewire was advanced easily into the radial artery. The catheter was then advanced over the wire and the needle and wire were withdrawn. The catheter was sutured into place with 1 sutures. A sterile Biopatch and Tegaderm was placed over the catheter at the insertion site. The patient tolerated the procedure without any hemodynamic compromise. At the time of procedure completion, the catheter was connected to the cafeteria monitor and calibrated. Appropriate waveform and blood pressure tracing was observed. Estimated blood loss is less than 5 mL. CPT: 65874 Arterial line insertion CPT: 51745 add-on MARA CROCKETT MD Aug 07, 2024 08:56
--- NOTE | 2024-08-07 09:17 | DVH ---
CHEST RADIOGRAPH Indication: post central line placement Technique: Single frontal view of the chest was obtained COMPARISON: XY CHEST PORTABLE on DOS: 08/07/24, XY CHEST PORTABLE on DOS: 08/06/24, XY CHEST PORTABLE o n DOS: 08/05/24 FINDINGS: Lines and Tubes: Endotracheal tube and enteric catheter in satisfactory position. Lungs: Multifocal airspace disease. Pleura: No effusion. No pneumothorax. Cardiomediastinal contours: Unremarkable Bones: Unremarkable IMPRESSION: Lines and tubes in satisfactory position. No significant interval change.
[2024-08-07 09:57] LABS: Magnesium 2.1 mg/dL (1.6-2.6)
[2024-08-07 09:59] LABS: Phosphorus 3.2 mg/dL (2.4-5.1)
[2024-08-07] MEDS: ENOXAPARIN SOD 30 MG/0.3 ML SYRINGE SC SCH (11:37)
--- NOTE | 2024-08-07 13:43 | DVHPN2 ---
Progress Note - Dictate Date Seen: Aug 07, 2024 Medical Necessity Reason Pt with a Central, PICC or Fol: Yes The following are medically ne: Tucker Catheter Reason for tucker catheter: Strict I&O Subjective high gastric output noted yesterday remains on levophed vital signs Vital Sign Date Time Temp Pulse Resp B/P (MAP) Pulse Ox O2 Delivery O2 Flow Rate FiO2 08/07/24 12:10 30 08/07/24 12:10 14 99 Mechanical Ventilator+ 30 08/07/24 12:00 61 08/07/24 11:40 94/58 08/07/24 11:30 98.2 208.8 Total Intake and Output 08/06/24 08/06/24 08/07/24 15:00 23:00 07:00 Intake Total 933.779 ml 1287.176 ml 1180.926 ml Output Total 2020 ml 2700 ml Balance 933.779 ml -732.824 ml -1519.074 ml medications Current Medications Medications Dose Ordered Sig/Pete Route Start Time Stop Time Status Last Admin Dose Admin Nitroglycerin 0.4 mg Q5MINP PRN SL 08/03/24 16:15 Morphine Sulfate 2 mg Q30M PRN IV 08/03/24 16:15 Ondansetron HCl 4 mg Q4HPRN PRN IV 08/03/24 16:15 08/06/24 10:18 4 MG Dextrose/Sodium Chloride 1,000 ml @ 75 mls/hr [id number] IV 08/03/24 16:15 08/07/24 02:23 75 MLS/HR Morphine Sulfate 2 mg Q4HPRN PRN IV 08/03/24 16:15 Piperacillin Sod/ Tazobactam Sod 100 ml @ 25 mls/hr Q8HR IV 08/03/24 22:00 08/07/24 05:46 25 MLS/HR Pantoprazole Sodium 40 mg DAILY IV 08/04/24 10:00 08/07/24 09:12 40 MG Furosemide 20 mg BIDD IV 08/03/24 18:00 08/07/24 05:47 20 MG Propofol 100 ml @ 2.799 mls/ hr Q24H IV 08/04/24 19:00 08/07/24 06:16 8.397 MLS/HR Fentanyl Citrate 250 ml @ 2.5 mls/hr Q24H IV 08/04/24 19:00 08/07/24 11:40 7.5 MLS/HR Norepinephrine Bitartrate 250 ml @ 3.75 mls/hr Q24H IV 08/04/24 19:00 08/07/24 11:30 15 MLS/HR Propranolol HCl 5 mg TID PO 08/06/24 14:00 08/07/24 05:47 5 MG Enoxaparin Sodium 30 mg DAILY SC 08/07/24 10:00 08/07/24 11:37 30 MG Lactulose 60 ml TID NG 08/07/24 22:00 objective Middle-aged male Intubated on pressor Distended abdomen No pitting edema Tucker catheter Non tachycardic laboratory and microbiology Laboratory Tests 08/07/24 03:49 Test 08/07/24 03:49 Range/Units Serum Glucose 121 H 74-106 mg/dL Assessment/Plan Acute kidney injury hemodynamically mediated Chronic kidney disease stage IIIB Acute respiratory failure Hepatic encephalopathy with elevated ammonia Ascites Setting of cirrhosis Anemia Monitor urinary output Currently on IV fluids rec continue Levophed to maintain mean arterial pressure greater than 65 Strict Is&Os Lactulose due to hepatic encephalopathy rec reduce dose due to high output Avoid contrast studies at this time Guarded prognosis critical care time 35mins Plan discussed with: Other Critical Care Time(min): 33 SARMAD JARRELL MD Aug 07, 2024 13:43
--- NOTE | 2024-08-07 18:07 | DVHPN2 ---
Progress Note - Dictate Date Seen: Aug 07, 2024 Medical Necessity Reason Pt with a Central, PICC or Fol: Yes The following are medically ne: Tucker Catheter Reason for tucker catheter: Strict I&O Subjective Sedated on ventilator comfortable per nurse. Patient's ammonia level has normalized. Evaluated by Nephrology. vital signs Vital Sign Date Time Temp Pulse Resp B/P (MAP) Pulse Ox O2 Delivery O2 Flow Rate FiO2 08/07/24 17:23 118/57 08/07/24 16:45 97.9 64 16 100 208.2 08/07/24 16:00 Mechanical Ventilator+ 30 30 30 Total Intake and Output 08/06/24 08/06/24 08/07/24 15:00 23:00 07:00 Intake Total 933.779 ml 1287.176 ml 1180.926 ml Output Total 2020 ml 2700 ml Balance 933.779 ml -732.824 ml -1519.074 ml medications Current Medications Medications Dose Ordered Sig/Pete Route Start Time Stop Time Status Last Admin Dose Admin Nitroglycerin 0.4 mg Q5MINP PRN SL 08/03/24 16:15 Morphine Sulfate 2 mg Q30M PRN IV 08/03/24 16:15 Ondansetron HCl 4 mg Q4HPRN PRN IV 08/03/24 16:15 08/06/24 10:18 4 MG Dextrose/Sodium Chloride 1,000 ml @ 75 mls/hr [id number] IV 08/03/24 16:15 08/07/24 02:23 75 MLS/HR Morphine Sulfate 2 mg Q4HPRN PRN IV 08/03/24 16:15 Piperacillin Sod/ Tazobactam Sod 100 ml @ 25 mls/hr Q8HR IV 08/03/24 22:00 08/07/24 14:30 25 MLS/HR Pantoprazole Sodium 40 mg DAILY IV 08/04/24 10:00 08/07/24 09:12 40 MG Furosemide 20 mg BIDD IV 08/03/24 18:00 08/07/24 17:23 20 MG Propofol 100 ml @ 2.799 mls/ hr Q24H IV 08/04/24 19:00 08/07/24 06:16 8.397 MLS/HR Fentanyl Citrate 250 ml @ 2.5 mls/hr Q24H IV 08/04/24 19:00 08/07/24 11:40 7.5 MLS/HR Norepinephrine Bitartrate 250 ml @ 3.75 mls/hr Q24H IV 08/04/24 19:00 08/07/24 11:30 15 MLS/HR Propranolol HCl 5 mg TID PO 08/06/24 14:00 08/07/24 05:47 5 MG Enoxaparin Sodium 30 mg DAILY SC 08/07/24 10:00 08/07/24 11:37 30 MG Lactulose 60 ml TID NG 08/07/24 22:00 objective Remains ventilator dependent and sedated comfortable without distress. HEENT pupils equal round react to light. Heart regular rate and rhythm bradycardia S1 plus S2. Lungs fair air movement without any audible wheezing. Abdomen firm with hypoactive bowel sounds. Extremities no edema. laboratory and microbiology Laboratory Tests 08/07/24 03:49 Test 08/07/24 03:49 Range/Units Serum Glucose 121 H 74-106 mg/dL Assessment/Plan Given ammonia level has improved we will cut down lactulose to 3 times a day dose. Replace electrolytes as needed. Advised nurse to start tapering off sedation and consider switching to Precedex and CPAP trials for possible extubation tomorrow given his ammonia levels have normalized now. Otherwise continue rest of supportive care and treatment as he is on. Further clinical management per clinical course. Discussed with the nurse regarding care plan. Problems(with codes): (1) Liver cirrhosis (2) Ascites (3) Hepatic encephalopathy (4) Pneumonia Dietary Evaluation Review Comments: 1) If GI is accessible consider Glucerna 1.2 @ 70 ml/hr goal rate as tolerated 2) If pt remains NPO for >7 days consider TPN to meet at least 75% of estimated needs 3) Advance pt diet when medically feasible to a Renal Specific K2,low phos,2gmNa,70gPro diet modified per MANUFACTURING APPLICATIONS ENGINEER recommendations 4) Continue current plan of care Expected Outcomes/Goals: 1) Pt to receive nutrition support within 7 days of NPO status 2) Pt diet to advance 3) F/U in 2-3 days Plan discussed with: NUNO Pearce MD Aug 07, 2024 18:07
--- NOTE | 2024-08-07 21:15 | DVHPN2 ---
Progress Note - Dictate Date Seen: Aug 07, 2024 Medical Necessity Reason Pt with a Central, PICC or Fol: Yes The following are medically ne: Tucker Catheter Reason for tucker catheter: Strict I&O Subjective Patient seen and examined at bedside. Sedated, intubated on mechanical ventilator. Overnight events reviewed. vital signs Vital Sign Date Time Temp Pulse Resp B/P (MAP) Pulse Ox O2 Delivery O2 Flow Rate FiO2 08/07/24 20:30 98.4 58 14 98/57 (71) 98 209.1 113/55 (74) 08/07/24 20:15 30 08/07/24 20:00 Mechanical Ventilator+ 30 Total Intake and Output 08/06/24 08/06/24 08/07/24 15:00 23:00 07:00 Intake Total 933.779 ml 1287.176 ml 1180.926 ml Output Total 2020 ml 2700 ml Balance 933.779 ml -732.824 ml -1519.074 ml medications Current Medications Medications Dose Ordered Sig/Pete Route Start Time Stop Time Status Last Admin Dose Admin Nitroglycerin 0.4 mg Q5MINP PRN SL 08/03/24 16:15 Morphine Sulfate 2 mg Q30M PRN IV 08/03/24 16:15 Ondansetron HCl 4 mg Q4HPRN PRN IV 08/03/24 16:15 08/06/24 10:18 4 MG Dextrose/Sodium Chloride 1,000 ml @ 75 mls/hr [id number] IV 08/03/24 16:15 08/07/24 02:23 75 MLS/HR Morphine Sulfate 2 mg Q4HPRN PRN IV 08/03/24 16:15 Piperacillin Sod/ Tazobactam Sod 100 ml @ 25 mls/hr Q8HR IV 08/03/24 22:00 08/07/24 14:30 25 MLS/HR Pantoprazole Sodium 40 mg DAILY IV 08/04/24 10:00 08/07/24 09:12 40 MG Furosemide 20 mg BIDD IV 08/03/24 18:00 08/07/24 17:23 20 MG Propofol 100 ml @ 2.799 mls/ hr Q24H IV 08/04/24 19:00 08/07/24 19:32 5.598 MLS/HR Fentanyl Citrate 250 ml @ 2.5 mls/hr Q24H IV 08/04/24 19:00 08/07/24 11:40 7.5 MLS/HR Norepinephrine Bitartrate 250 ml @ 3.75 mls/hr Q24H IV 08/04/24 19:00 08/07/24 11:30 15 MLS/HR Propranolol HCl 5 mg TID PO 08/06/24 14:00 08/07/24 05:47 5 MG Enoxaparin Sodium 30 mg DAILY SC 08/07/24 10:00 08/07/24 11:37 30 MG Lactulose 60 ml TID NG 08/07/24 22:00 objective Gen.: Patient lying in bed in medical ICU. Sedated, intubated on mechanical ventilator. Head: Normocephalic, atraumatic. Eyes: PERRLA. Ears: Normal external anatomy. Throat: Endotracheal tube and orogastric tube in place. Neck: Supple, trachea midline. Chest: Transmitted breath sounds bilaterally. Decreased air entry bilaterally. No wheezing. Bibasilar crackles. Cardiovascular: Positive S1, positive S2. Regular rate and rhythm. Abdomen: Positive bowel sounds in all 4 quadrants. Soft, nontender, nondistended. : Tucker in place. Normal external genitalia. Rectal: Deferred. Skin: Warm, dry. Intact. Extremities: 2+ radial pulses bilaterally. No lower extremity edema. Neuro: Sedated. laboratory and microbiology Laboratory Tests 08/07/24 03:49 Test 08/07/24 03:49 Range/Units Serum Glucose 121 H 74-106 mg/dL Assessment/Plan Impression: Acute hypoxic respiratory failure On mechanical ventilator Acute hepatic encephalopathy ALOC Aspiration pneumonitis Abdominal loculated ascites Events: Remains on vent support On AC mode; RR 14, VT 500, PEEP 5, FiO2 30% ABG reviewed, compensated CXR reviewed, demonstrated right subclavian line in place. No pneumothorax Removal femoral central line. Sedated on Propofol, Fentanyl On pressors for hemodynamic support Levophed 8 mcg/min Titrate to keep mean arterial pressure greater than 65 mmHg. Improving pressor requirements NGT to low intermittent suction. Continue antibiotics - Zosyn Ammonia level trending down. On lactulose. Diurese w/ Lasix BID Monitor renal function - creatinine trending down Monitor electrolytes. Supplement as necessary. Supplement potassium, Check mag and phos GI prophylaxis w/ Protonix F/u Dietary recommendations Labs and imaging reviewed. Rest of plan as noted below. Plan: s/p intubation on mechanical ventilator. On AC mode; RR 14, VT 500, PEEP 5, FiO2 30% Titrate FIO2 to keep O2 saturation above 90%. VAP bundle. Daily ABG and CXR while intubated Sedate for ventilator synchrony - on Fentanyl and Propofol. Taper sedation as tolerated. Improved ammonia level. On pressors for hemodynamic support Titrate to keep mean arterial pressure greater than 65 mmHg. Limited chest ultrasound shows trace right pleural effusion not amenable for thora. Limited abdominal ultrasound shows loculated LLQ ascites. IR consulted for paracentesis. Antibiotics. Monitor renal function Monitor electrolytes. Supplement as necessary. Monitor ins and outs. Maintain euvolemia. GI prophylaxis. DVT prophylaxis. Prognosis: Poor given patient's multiple co-morbidities. Condition: Critical Rest of plan per hospitalist and other consultants. A total of 35 minutes of critical care time was spent reviewing the patient record, examining the patient, making a diagnostic and therapeutic plan, discussing this plan with the medical personnel, following up on diagnostic studies and following the patient for clinical stability excluding any and all procedures. At least 50% of this time was spent in direct, [id number] contact. Thank you Dr. Skyler Reynoso MD, for allowing me to participate in this patient's care. Further recommendations will depend on the patient's clinical course. Please do not hesitate to contact me if you have any questions or concerns. This medical document was created using an electronic medical record system with [employer] dictation system. Although these documentations are being carefully reviewed, there may still be some phonetic and typographical changes. The errors are purely typographical, due to imperfection on the software program, and do not reflect any compromise in the patient's medical care. Dietary Evaluation Review Comments: 1) If GI is accessible consider Glucerna 1.2 @ 70 ml/hr goal rate as tolerated 2) If pt remains NPO for >7 days consider TPN to meet at least 75% of estimated needs 3) Advance pt diet when medically feasible to a Renal Specific K2,low phos,2gmNa,70gPro diet modified per HEEL REDUCER recommendations 4) Continue current plan of care Expected Outcomes/Goals: 1) Pt to receive nutrition support within 7 days of NPO status 2) Pt diet to advance 3) F/U in 2-3 days Plan discussed with: Other (RAUDEL Onofre) Critical Care Time(min): 35 AMRA DEVINE MD Aug 07, 2024 21:15
[2024-08-07] MEDS: LACTULOSE 20Gm/30ML SOLN NG SCH (22:07)
[2024-08-08] VITALS (107 sets, daily range): BP systolic 66–137; BP diastolic 46–117; PULSE 50–107; RESP 7–26; TEMP 97.9–99.7; O2SAT 96–100
[2024-08-08 04:25] LABS: Hematocrit 30.5 % (41.0-53.0); Hemoglobin 10.5 g/dL (13.5-17.5); Mean Corpuscular Hemoglobin 29.7 pg (28.0-32.0); Mean Corpuscular Hgb Conc. 34.2 g/dL (32.0-36.0); Mean Corpuscular Volume 86.9 fL (80.0-100.0); Platelet Count (auto) 218 10^3/uL (140-450); Red Blood Cells 3.52 10^6/uL (4.5-5.90); Red Cell Distribution Width 16.4 % (11.8-14.3); White Blood Cell 7.2 10^3/uL (4.4-10.8)
[2024-08-08 04:29] LABS: Basophils % (manual) 0 (0.0-2.0); Blast Cells 0; Metamyelocytes % 0; Myelocytes % 0; Promyelocytes % 0; Reactive Lymphocytes 0
[2024-08-08 04:35] LABS: Anion Gap 10 (5-15); Carbon Dioxide 26 mmol/L (20-31)
[2024-08-08 04:36] LABS: Calcium 9.2 mg/dL (8.7-10.4)
[2024-08-08 04:41] LABS: BUN/Creatinine Ratio 10.4 (10.0-20.0); Blood Urea Nitrogen 22 mg/dL (9-23)
[2024-08-08 04:43] LABS: Chloride 111 mmol/L (98-107); Glucose 132 mg/dL (74-106); Sodium 147 mmol/L (136-145)
[2024-08-08] MEDS: POTASSIUM EFFERVESENT TAB 25 MEQ GT ONE (06:18)
[2024-08-08 06:48] LABS: Band Neutrophils % (manual) 1; Eosinophils % (manual) 20 (0-7); Lymphocytes % (manual) 9 (10.0-50.0); Monocytes % (manual) 12 (0-12); Platelet Estimate Adequate
[2024-08-08 07:10] LABS: Base Excess 0.1 mmol/L (-2.0-3.0)
--- NOTE | 2024-08-08 10:32 | DVHPN2 ---
Progress Note - Dictate Date Seen: Aug 08, 2024 Medical Necessity Reason Pt with a Central, PICC or Fol: Yes The following are medically ne: Tucker Catheter Reason for tucker catheter: Strict I&O Subjective Patient is seen and evaluated in the ICU. Discussed with the nurse at bedside. Patient remains intubated comfortable on ventilator without any acute distress. His ammonia level is in the 50 range. Still on sedation as well as fentanyl. vital signs Vital Sign Date Time Temp Pulse Resp B/P (MAP) Pulse Ox O2 Delivery O2 Flow Rate FiO2 08/08/24 10:02 55 14 103/51 (68) 99 30 08/08/24 06:45 98.2 208.8 08/08/24 06:00 Mechanical Ventilator+ 30 Total Intake and Output 08/07/24 08/07/24 08/08/24 15:00 23:00 07:00 Intake Total 919.377 ml 897.284 ml 1398.372 ml Output Total 2450 ml 2050 ml Balance 919.377 ml -1552.716 ml -651.628 ml medications Current Medications Medications Dose Ordered Sig/Pete Route Start Time Stop Time Status Last Admin Dose Admin Nitroglycerin 0.4 mg Q5MINP PRN SL 08/03/24 16:15 Morphine Sulfate 2 mg Q30M PRN IV 08/03/24 16:15 Ondansetron HCl 4 mg Q4HPRN PRN IV 08/03/24 16:15 08/06/24 10:18 4 MG Dextrose/Sodium Chloride 1,000 ml @ 75 mls/hr [id number] IV 08/03/24 16:15 08/07/24 02:23 75 MLS/HR Morphine Sulfate 2 mg Q4HPRN PRN IV 08/03/24 16:15 Piperacillin Sod/ Tazobactam Sod 100 ml @ 25 mls/hr Q8HR IV 08/03/24 22:00 08/08/24 06:18 25 MLS/HR Pantoprazole Sodium 40 mg DAILY IV 08/04/24 10:00 08/07/24 09:12 40 MG Furosemide 20 mg BIDD IV 08/03/24 18:00 08/08/24 06:17 20 MG Propofol 100 ml @ 2.799 mls/ hr Q24H IV 08/04/24 19:00 08/08/24 03:06 11.196 MLS/HR Fentanyl Citrate 250 ml @ 2.5 mls/hr Q24H IV 08/04/24 19:00 08/07/24 11:40 7.5 MLS/HR Norepinephrine Bitartrate 250 ml @ 3.75 mls/hr Q24H IV 08/04/24 19:00 08/08/24 04:13 15 MLS/HR Propranolol HCl 5 mg TID PO 08/06/24 14:00 08/07/24 05:47 5 MG Enoxaparin Sodium 30 mg DAILY SC 08/07/24 10:00 08/07/24 11:37 30 MG Lactulose 60 ml TID NG 08/07/24 22:00 08/08/24 06:18 60 ML objective Remains ventilator dependent and sedated comfortable without distress. HEENT pupils equal round react to light. Heart regular rate and rhythm bradycardia S1 plus S2. Lungs fair air movement without any audible wheezing. Abdomen firm with hypoactive bowel sounds. Extremities no edema. laboratory and microbiology Laboratory Tests 08/08/24 03:45 Test 08/08/24 03:45 Range/Units Serum Glucose 132 H 74-106 mg/dL Assessment/Plan Continue current medical management as he is on. Advised the nurse to come down on fentanyl and cut down sedation for possible CPAP trials. We will discuss with relations liaison to consider CPAP trials in the next 24 hours. Follow the labs. If not going to be extubated any time soon we will consider TPN for nutrition. Patient having some NG output with a possible ileus therefore tube feeds are not being given at present. Problems(with codes): (1) Pneumonia (2) Hepatic encephalopathy (3) Ascites (4) Liver cirrhosis Dietary Evaluation Review Comments: 1) If GI is accessible consider Glucerna 1.2 @ 70 ml/hr goal rate as tolerated 2) If pt remains NPO for >7 days consider TPN to meet at least 75% of estimated needs 3) Advance pt diet when medically feasible to a Renal Specific K2,low phos,2gmNa,70gPro diet modified per BODY PIERCER recommendations 4) Continue current plan of care Expected Outcomes/Goals: 1) Pt to receive nutrition support within 7 days of NPO status 2) Pt diet to advance 3) F/U in 2-3 days Plan discussed with: NUNO Pearce MD Aug 08, 2024 10:31
--- NOTE | 2024-08-08 12:01 | DVH ---
EXAM: XY CHEST PORTABLE Indication: RE-EVAL BILAT AIRSPACE DISEASE Technique: Single frontal view of the chest was obtained Comparison: XY CHEST PORTABLE on DOS: 08/07/24, XY CHEST PORTABLE on DOS: 08/07/24, XY CHEST PORTABLE o n DOS: 08/06/24, XY CHEST PORTABLE on DOS: 08/05/24, XY CHEST PORTABLE on DOS: 08/04/24, XY CHEST JOSEPH BLE on DOS: 08/07/24 FINDINGS: Lines and Tubes: Endotracheal tube and enteric catheter in satisfactory position. Lungs: Multifocal airspace disease worsened in the right lung. Pleura: No effusion. No pneumothorax. Cardiomediastinal contours: Unremarkable Bones: Unremarkable IMPRESSION: Worsening right lung airspace opacities.
--- NOTE | 2024-08-08 15:01 | DVHPN2 ---
Progress Note - Dictate Date Seen: Aug 08, 2024 Medical Necessity Reason Pt with a Central, PICC or Fol: Yes The following are medically ne: Tucker Catheter Reason for tucker catheter: Strict I&O Subjective Noted to have gastric output from NG tube vital signs Vital Sign Date Time Temp Pulse Resp B/P (MAP) Pulse Ox O2 Delivery O2 Flow Rate FiO2 08/08/24 13:27 74 15 97/55 (69) 100 30 08/08/24 11:45 98.2 208.8 08/08/24 10:00 Mechanical Ventilator+ 30 Total Intake and Output 08/07/24 08/07/24 08/08/24 15:00 23:00 07:00 Intake Total 919.377 ml 897.284 ml 1519.472 ml Output Total 2450 ml 2050 ml Balance 919.377 ml -1552.716 ml -530.528 ml medications Current Medications Medications Dose Ordered Sig/Pete Route Start Time Stop Time Status Last Admin Dose Admin Nitroglycerin 0.4 mg Q5MINP PRN SL 08/03/24 16:15 Morphine Sulfate 2 mg Q30M PRN IV 08/03/24 16:15 Ondansetron HCl 4 mg Q4HPRN PRN IV 08/03/24 16:15 08/06/24 10:18 4 MG Dextrose/Sodium Chloride 1,000 ml @ 75 mls/hr [id number] IV 08/03/24 16:15 08/08/24 12:53 75 MLS/HR Morphine Sulfate 2 mg Q4HPRN PRN IV 08/03/24 16:15 Piperacillin Sod/ Tazobactam Sod 100 ml @ 25 mls/hr Q8HR IV 08/03/24 22:00 08/08/24 06:18 25 MLS/HR Pantoprazole Sodium 40 mg DAILY IV 08/04/24 10:00 08/08/24 10:37 40 MG Furosemide 20 mg BIDD IV 08/03/24 18:00 08/08/24 06:17 20 MG Propofol 100 ml @ 2.799 mls/ hr Q24H IV 08/04/24 19:00 08/08/24 12:54 5.598 MLS/HR Fentanyl Citrate 250 ml @ 2.5 mls/hr Q24H IV 08/04/24 19:00 08/07/24 11:40 7.5 MLS/HR Norepinephrine Bitartrate 250 ml @ 3.75 mls/hr Q24H IV 08/04/24 19:00 08/08/24 04:13 15 MLS/HR Propranolol HCl 5 mg TID PO 08/06/24 14:00 08/07/24 05:47 5 MG Enoxaparin Sodium 30 mg DAILY SC 08/07/24 10:00 08/08/24 10:37 30 MG Lactulose 60 ml TID NG 08/07/24 22:00 08/08/24 14:46 60 ML objective Middle-aged male Intubated on pressor Distended abdomen No pitting edema Tucker catheter Non tachycardic laboratory and microbiology Laboratory Tests 08/08/24 03:45 Test 08/08/24 03:45 Range/Units Serum Glucose 132 H 74-106 mg/dL Assessment/Plan Acute kidney injury hemodynamically mediated Chronic kidney disease stage IIIB Acute respiratory failure Hepatic encephalopathy with elevated ammonia Ascites Setting of cirrhosis Anemia Monitor urinary output Potassium replacement Currently on IV fluids rec continue Levophed to maintain mean arterial pressure greater than 65 Strict Is&Os Lactulose due to hepatic encephalopathy Avoid contrast studies at this time Guarded prognosis critical care time 35mins Dietary Evaluation Review Comments: 1) If GI is accessible consider Glucerna 1.2 @ 70 ml/hr goal rate as tolerated 2) If pt remains NPO for >7 days consider TPN to meet at least 75% of estimated needs 3) Advance pt diet when medically feasible to a Renal Specific K2,low phos,2gmNa,70gPro diet modified per RN CHILD recommendations 4) Continue current plan of care Expected Outcomes/Goals: 1) Pt to receive nutrition support within 7 days of NPO status 2) Pt diet to advance 3) F/U in 2-3 days Plan discussed with: Other Critical Care Time(min): 33 SARMAD JARRELL MD Aug 08, 2024 15:01
[2024-08-08] MEDS: POTASSIUM CHL 20MEQ/100ML 100 ML IV SCH (17:29)
[2024-08-08] MEDS: LACTULOSE 20Gm/30ML SOLN PO SCH (17:51)
--- NOTE | 2024-08-08 20:05 | DVHPN2 ---
Progress Note - Dictate Date Seen: Aug 08, 2024 Medical Necessity Reason Pt with a Central, PICC or Fol: Yes The following are medically ne: Tucker Catheter Reason for tucker catheter: Strict I&O Subjective Patient seen and examined at bedside. Sedated, intubated on mechanical ventilator. Overnight events reviewed. vital signs Vital Sign Date Time Temp Pulse Resp B/P (MAP) Pulse Ox O2 Delivery O2 Flow Rate FiO2 08/08/24 18:45 76 15 108/66 (80) 96 08/08/24 18:27 30 08/08/24 18:00 Mechanical Ventilator+ 30 08/08/24 17:45 99.5 211.1 Total Intake and Output 08/07/24 08/07/24 08/08/24 15:00 23:00 07:00 Intake Total 919.377 ml 897.284 ml 1534.472 ml Output Total 2450 ml 2050 ml Balance 919.377 ml -1552.716 ml -515.528 ml medications Current Medications Medications Dose Ordered Sig/Pete Route Start Time Stop Time Status Last Admin Dose Admin Nitroglycerin 0.4 mg Q5MINP PRN SL 08/03/24 16:15 Morphine Sulfate 2 mg Q30M PRN IV 08/03/24 16:15 Ondansetron HCl 4 mg Q4HPRN PRN IV 08/03/24 16:15 08/06/24 10:18 4 MG Dextrose/Sodium Chloride 1,000 ml @ 75 mls/hr [id number] IV 08/03/24 16:15 08/08/24 12:53 75 MLS/HR Morphine Sulfate 2 mg Q4HPRN PRN IV 08/03/24 16:15 Piperacillin Sod/ Tazobactam Sod 100 ml @ 25 mls/hr Q8HR IV 08/03/24 22:00 08/08/24 14:58 25 MLS/HR Pantoprazole Sodium 40 mg DAILY IV 08/04/24 10:00 08/08/24 10:37 40 MG Furosemide 20 mg BIDD IV 08/03/24 18:00 08/08/24 06:17 20 MG Propofol 100 ml @ 2.799 mls/ hr Q24H IV 08/04/24 19:00 08/08/24 12:54 5.598 MLS/HR Fentanyl Citrate 250 ml @ 2.5 mls/hr Q24H IV 08/04/24 19:00 08/07/24 11:40 7.5 MLS/HR Norepinephrine Bitartrate 250 ml @ 3.75 mls/hr Q24H IV 08/04/24 19:00 08/08/24 17:43 22.5 MLS/HR Propranolol HCl 5 mg TID PO 08/06/24 14:00 08/07/24 05:47 5 MG Enoxaparin Sodium 30 mg DAILY SC 08/07/24 10:00 08/08/24 10:37 30 MG Lactulose 30 ml Q6HR PO 08/08/24 18:00 Potassium Chloride 100 ml @ 50 mls/hr Q2H IV 08/08/24 16:45 08/08/24 22:44 08/08/24 17:29 50 MLS/HR Dexmedetomidine HCl 400 mcg/ Dextrose 100 ml @ 4.665 mls/ hr [id number] IV 08/08/24 17:45 objective Gen.: Patient lying in bed in medical ICU. Sedated, intubated on mechanical ventilator. Head: Normocephalic, atraumatic. Eyes: PERRLA. Ears: Normal external anatomy. Throat: Endotracheal tube and orogastric tube in place. Neck: Supple, trachea midline. Chest: Transmitted breath sounds bilaterally. Decreased air entry bilaterally. No wheezing. Bibasilar crackles. Cardiovascular: Positive S1, positive S2. Regular rate and rhythm. Abdomen: Positive bowel sounds in all 4 quadrants. Soft, nontender, nondistended. : Tucker in place. Normal external genitalia. Rectal: Deferred. Skin: Warm, dry. Intact. Extremities: 2+ radial pulses bilaterally. No lower extremity edema. Neuro: Sedated. laboratory and microbiology Laboratory Tests 08/08/24 15:35 08/08/24 03:45 Test 08/08/24 03:45 Range/Units Serum Glucose 132 H 74-106 mg/dL Assessment/Plan Impression: Acute hypoxic respiratory failure On mechanical ventilator Acute hepatic encephalopathy ALOC Aspiration pneumonitis Abdominal loculated ascites Events: Remains on vent support On AC mode; RR 14, VT 500, PEEP 5, FiO2 30% ABG reviewed, compensated CXR reviewed, demonstrated ET tube in place. Multifocal airspace opacities. No pleural effusion. No pneumothorax Check NGT output. Sedated on Propofol On pressors for hemodynamic support Levophed 8 mcg/min Titrate to keep mean arterial pressure greater than 65 mmHg. Improving pressor requirements NGT to low intermittent suction. Continue antibiotics - Zosyn Continue lactulose. Diurese w/ Lasix BID Monitor renal function - creatinine trending down Monitor electrolytes. Supplement as necessary. Supplement potassium, Check mag and phos GI prophylaxis w/ Protonix F/u Dietary recommendations Taper sedation Plan for CPAP once awake, alert. Labs and imaging reviewed. Rest of plan as noted below. Plan: s/p intubation on mechanical ventilator. On AC mode; RR 14, VT 500, PEEP 5, FiO2 30% Titrate FIO2 to keep O2 saturation above 90%. VAP bundle. Daily ABG and CXR while intubated Sedate for ventilator synchrony - on Propofol. Taper sedation as tolerated. Improved ammonia level. On pressors for hemodynamic support Titrate to keep mean arterial pressure greater than 65 mmHg. Limited chest ultrasound shows trace right pleural effusion not amenable for thora. Limited abdominal ultrasound shows loculated LLQ ascites. IR consulted for paracentesis. Antibiotics. Monitor renal function Monitor electrolytes. Supplement as necessary. Monitor ins and outs. Maintain euvolemia. GI prophylaxis. DVT prophylaxis. Prognosis: Poor given patient's multiple co-morbidities. Condition: Critical Rest of plan per hospitalist and other consultants. A total of 35 minutes of critical care time was spent reviewing the patient record, examining the patient, making a diagnostic and therapeutic plan, discussing this plan with the medical personnel, following up on diagnostic studies and following the patient for clinical stability excluding any and all procedures. At least 50% of this time was spent in direct, [id number] contact. Thank you Dr. Skyler Reynoso MD, for allowing me to participate in this patient's care. Further recommendations will depend on the patient's clinical course. Please do not hesitate to contact me if you have any questions or concerns. This medical document was created using an electronic medical record system with [employer] system. Although these documentations are being carefully reviewed, there may still be some phonetic and typographical changes. The errors are purely typographical, due to imperfection on the software program, and do not reflect any compromise in the patient's medical care. Dietary Evaluation Review Comments: 1) If GI is accessible consider Glucerna 1.2 @ 70 ml/hr goal rate as tolerated 2) If pt remains NPO for >7 days consider TPN to meet at least 75% of estimated needs 3) Advance pt diet when medically feasible to a Renal Specific K2,low phos,2gmNa,70gPro diet modified per INCIDENT RESPONSE ANALYST recommendations 4) Continue current plan of care Expected Outcomes/Goals: 1) Pt to receive nutrition support within 7 days of NPO status 2) Pt diet to advance 3) F/U in 2-3 days Plan discussed with: Other (RAUDEL Cope) Critical Care Time(min): 35 MARA DEVINE MD Aug 08, 2024 20:05
[2024-08-09] VITALS (102 sets, daily range): BP systolic 76–125; BP diastolic 25–79; PULSE 44–98; RESP 9–25; TEMP 97.6–99.6; O2SAT 96–100
[2024-08-09 03:23] LABS: Basophils # (auto) 0.2 10 ^3/uL (0-0.2); Basophils % (auto) 2.3 % (0.0-2.0); Eosinophils % (auto) 13.1 % (0.0-7.0); Hematocrit 29.6 % (41.0-53.0); Hemoglobin 9.8 g/dL (13.5-17.5); Lymphocytes # (auto) 0.9 10 ^3/uL (0.4-5.4); Lymphocytes % (auto) 11.2 % (10.0-50.0); Mean Corpuscular Hemoglobin 28.9 pg (28.0-32.0); Mean Corpuscular Hgb Conc. 32.9 g/dL (32.0-36.0); Monocytes # (auto) 1.3 10 ^3/uL (0-1.3); Monocytes % (auto) 16.5 % (0.0-12.0); Neutrophils # (auto) 4.5 10 ^3/uL (1.6-8.6); Neutrophils % (auto) 56.9 % (37.0-80.0); Platelet Count (auto) 195 10^3/uL (140-450); Red Blood Cells 3.37 10^6/uL (4.5-5.90); Red Cell Distribution Width 16.3 % (11.8-14.3); White Blood Cell 7.9 10^3/uL (4.4-10.8)
[2024-08-09 03:42] LABS: Anion Gap 10 (5-15); Carbon Dioxide 27 mmol/L (20-31); Potassium 3.7 mmol/L (3.5-5.1)
[2024-08-09 03:43] LABS: Calcium 9.7 mg/dL (8.7-10.4)
[2024-08-09 03:48] LABS: BUN/Creatinine Ratio 9.8 (10.0-20.0); Blood Urea Nitrogen 17 mg/dL (9-23)
[2024-08-09 03:59] LABS: Chloride 115 mmol/L (98-107); Glucose 111 mg/dL (74-106); Sodium 152 mmol/L (136-145)
--- NOTE | 2024-08-09 04:09 | DVH ---
CHEST RADIOGRAPH Indication: re-check worseniubng RLL opacities Technique: Single frontal view of the chest was obtained Comparison: XY CHEST PORTABLE on DOS: 08/08/24, XY CHEST PORTABLE on DOS: 08/07/24, XY CHEST PORTABLE o n DOS: 08/07/24, XY CHEST PORTABLE on DOS: 08/06/24, XY CHEST PORTABLE on DOS: 08/05/24, XY CHEST PORTAB LE on DOS: 08/08/24 FINDINGS: Lines and Tubes: Endotracheal tube and enteric catheter in satisfactory position. Lungs: Multifocal airspace disease worsened in the right lung. Pleura: No effusion. No pneumothorax. Cardiomediastinal contours: Unremarkable Bones: Unremarkable IMPRESSION: Worsening right lung airspace opacities.
[2024-08-09] MEDS: FUROSEMIDE 20 MG/2 ML VIAL ONE (11:34)
[2024-08-09] MEDS: D5W 5% 1,000 ML IV SCH (12:50)
[2024-08-09] MEDS: FUROSEMIDE 20 MG/2 ML VIAL IV ONE (12:55)
--- NOTE | 2024-08-09 15:41 | DVHPN2 ---
Progress Note - Dictate Date Seen: Aug 09, 2024 Medical Necessity Reason Pt with a Central, PICC or Fol: Yes The following are medically ne: Tucker Catheter Reason for tucker catheter: Strict I&O Subjective extubated vital signs Vital Sign Date Time Temp Pulse Resp B/P (MAP) Pulse Ox O2 Delivery O2 Flow Rate FiO2 08/09/24 15:00 98.7 64 17 120/70 (87) 100 98.7 08/09/24 14:00 Cool Aerosol 12 40 40 Total Intake and Output 08/08/24 08/08/24 08/09/24 15:00 23:00 07:00 Intake Total 1041.80 ml 1118.300 ml 933.786 ml Output Total 1900 ml 1275 ml Balance 1041.80 ml -781.700 ml -341.214 ml medications Current Medications Medications Dose Ordered Sig/Pete Route Start Time Stop Time Status Last Admin Dose Admin Nitroglycerin 0.4 mg Q5MINP PRN SL 08/03/24 16:15 Morphine Sulfate 2 mg Q30M PRN IV 08/03/24 16:15 Ondansetron HCl 4 mg Q4HPRN PRN IV 08/03/24 16:15 08/06/24 10:18 4 MG Morphine Sulfate 2 mg Q4HPRN PRN IV 08/03/24 16:15 Piperacillin Sod/ Tazobactam Sod 100 ml @ 25 mls/hr Q8HR IV 08/03/24 22:00 08/09/24 14:01 25 MLS/HR Pantoprazole Sodium 40 mg DAILY IV 08/04/24 10:00 08/09/24 10:04 40 MG Furosemide 20 mg BIDD IV 08/03/24 18:00 08/09/24 05:57 20 MG Propofol 100 ml @ 2.799 mls/ hr Q24H IV 08/04/24 19:00 08/08/24 12:54 5.598 MLS/HR Norepinephrine Bitartrate 250 ml @ 3.75 mls/hr Q24H IV 08/04/24 19:00 08/09/24 11:23 11.25 MLS/HR Propranolol HCl 5 mg TID PO 08/06/24 14:00 08/09/24 14:53 5 MG Enoxaparin Sodium 30 mg DAILY SC 08/07/24 10:00 08/09/24 10:04 30 MG Lactulose 30 ml Q6HR PO 08/08/24 18:00 08/09/24 12:49 30 ML Dexmedetomidine HCl 400 mcg/ Dextrose 100 ml @ 4.665 mls/ hr [id number] IV 08/08/24 17:45 08/08/24 20:23 4.665 MLS/HR Dextrose 1,000 ml @ 125 mls/hr Q8H IV 08/09/24 12:30 08/09/24 12:50 125 MLS/HR objective Middle-aged male mildly abdomen No pitting edema Tucker catheter Non tachycardic rectal tube laboratory and microbiology Laboratory Tests 08/09/24 03:00 Test 08/09/24 03:00 Range/Units Serum Glucose 111 H 74-106 mg/dL Assessment/Plan Acute kidney injury hemodynamically mediated Chronic kidney disease stage IIIB Acute respiratory failure resolved Hepatic encephalopathy with elevated ammonia Ascites Setting of cirrhosis Anemia hypernatremia Monitor urinary output Potassium replacement to keep K 4.0 Currently on IV fluids rec continue-> free water IV Levophed to maintain mean arterial pressure greater than 65 Strict Is&Os Lactulose due to hepatic encephalopathy Avoid contrast studies at this time Guarded prognosis critical care time 35mins Dietary Evaluation Review Comments: 1) If GI is accessible consider Glucerna 1.2 @ 70 ml/hr goal rate as tolerated 2) If pt remains NPO for >7 days consider TPN to meet at least 75% of estimated needs 3) Advance pt diet when medically feasible to a Renal Specific K2,low phos,2gmNa,70gPro diet modified per UMBRELLA TIPPER recommendations 4) Continue current plan of care Expected Outcomes/Goals: 1) Pt to receive nutrition support within 7 days of NPO status 2) Pt diet to advance 3) F/U in 2-3 days Plan discussed with: Patient SARMAD JARRELL MD Aug 09, 2024 15:41
--- NOTE | 2024-08-09 15:59 | DVHPN2 ---
Progress Note - Dictate Date Seen: Aug 09, 2024 Medical Necessity Reason Pt with a Central, PICC or Fol: No The following are medically ne: Tucker Catheter Reason for tucker catheter: Strict I&O Subjective Patient is seen and evaluated in the ICU. He is extubated this morning. Extubated this morning. Alert and awake. Ammonia level has improved. vital signs Vital Sign Date Time Temp Pulse Resp B/P (MAP) Pulse Ox O2 Delivery O2 Flow Rate FiO2 08/09/24 15:00 98.7 64 17 120/70 (87) 100 98.7 08/09/24 14:00 Cool Aerosol 12 40 40 Total Intake and Output 08/08/24 08/08/24 08/09/24 15:00 23:00 07:00 Intake Total 1041.80 ml 1118.300 ml 933.786 ml Output Total 1900 ml 1275 ml Balance 1041.80 ml -781.700 ml -341.214 ml medications Current Medications Medications Dose Ordered Sig/Pete Route Start Time Stop Time Status Last Admin Dose Admin Nitroglycerin 0.4 mg Q5MINP PRN SL 08/03/24 16:15 Morphine Sulfate 2 mg Q30M PRN IV 08/03/24 16:15 Ondansetron HCl 4 mg Q4HPRN PRN IV 08/03/24 16:15 08/06/24 10:18 4 MG Morphine Sulfate 2 mg Q4HPRN PRN IV 08/03/24 16:15 Piperacillin Sod/ Tazobactam Sod 100 ml @ 25 mls/hr Q8HR IV 08/03/24 22:00 08/09/24 14:01 25 MLS/HR Pantoprazole Sodium 40 mg DAILY IV 08/04/24 10:00 08/09/24 10:04 40 MG Furosemide 20 mg BIDD IV 08/03/24 18:00 08/09/24 05:57 20 MG Propofol 100 ml @ 2.799 mls/ hr Q24H IV 08/04/24 19:00 08/08/24 12:54 5.598 MLS/HR Norepinephrine Bitartrate 250 ml @ 3.75 mls/hr Q24H IV 08/04/24 19:00 08/09/24 11:23 11.25 MLS/HR Propranolol HCl 5 mg TID PO 08/06/24 14:00 08/09/24 14:53 5 MG Enoxaparin Sodium 30 mg DAILY SC 08/07/24 10:00 08/09/24 10:04 30 MG Lactulose 30 ml Q6HR PO 08/08/24 18:00 08/09/24 12:49 30 ML Dexmedetomidine HCl 400 mcg/ Dextrose 100 ml @ 4.665 mls/ hr [id number] IV 08/08/24 17:45 08/08/24 20:23 4.665 MLS/HR Dextrose 1,000 ml @ 125 mls/hr Q8H IV 08/09/24 12:30 08/09/24 12:50 125 MLS/HR objective Extubated comfortable in bed. Alert and awake knows his name. HEENT pupils equal round react to light. Heart regular rate and rhythm bradycardia S1 plus S2. Lungs fair air movement without any audible wheezing. Abdomen firm with hypoactive bowel sounds. Extremities no edema. laboratory and microbiology Laboratory Tests 08/09/24 03:00 Test 08/09/24 03:00 Range/Units Serum Glucose 111 H 74-106 mg/dL Assessment/Plan Swallow evaluation later today. Continue D5W for his hypernatremia. Continue free water through NG tube. Continue rest of supportive care and treatment. Further clinical management per clinical course. Discussed with the nurse in the ICU regarding care plan. Problems(with codes): (1) Hepatic encephalopathy (2) Ascites (3) Liver cirrhosis (4) Toxic encephalopathy (5) Pneumonia Dietary Evaluation Review Comments: 1) If GI is accessible consider Glucerna 1.2 @ 70 ml/hr goal rate as tolerated 2) If pt remains NPO for >7 days consider TPN to meet at least 75% of estimated needs 3) Advance pt diet when medically feasible to a Renal Specific K2,low phos,2gmNa,70gPro diet modified per BENCH REPAIR TECHNICIAN recommendations 4) Continue current plan of care Expected Outcomes/Goals: 1) Pt to receive nutrition support within 7 days of NPO status 2) Pt diet to advance 3) F/U in 2-3 days Plan discussed with: NUNO Pearce MD Aug 09, 2024 15:59
--- NOTE | 2024-08-09 15:59 | DVH ---
EXAM: XY CHEST PORTABLE TECHNIQUE: Single frontal chest radiograph CLINICAL HISTORY: CHECK NG TUBE PLACEMENT COMPARISON: XY CHEST PORTABLE on DOS: 08/09/24, XY CHEST PORTABLE on DOS: 08/08/24, XY CHEST PORTABLE o n DOS: 08/07/24 Findings/Impression: Frontal chest radiograph demonstrates no acute osseous or superficial soft tissue abnormalities. Enteric tube is overlying the plane of the stomach. Right subclavian central line terminates in the r ight atrium. The trachea is midline. The cardiac silhouette and mediastinum are within normal limits. Right mid to lower lung field atelectasis. No pneumothorax, pleural effusions, or consolidations.
[2024-08-09 20:57] LABS: Anion Gap 8 (5-15); Calcium 9.4 mg/dL (8.7-10.4); Carbon Dioxide 29 mmol/L (20-31)
[2024-08-09 21:02] LABS: BUN/Creatinine Ratio 8.3 (10.0-20.0); Blood Urea Nitrogen 15 mg/dL (9-23)
[2024-08-09 21:05] LABS: Chloride 112 mmol/L (98-107); Glucose 126 mg/dL (74-106); Potassium 3.3 mmol/L (3.5-5.1); Sodium 149 mmol/L (136-145)
[2024-08-09] MEDS: PIPERACILLIN-TAZOB 3.375GM 100 ML IV SCH (22:01)
--- NOTE | 2024-08-09 23:24 | DVHPN2 ---
Progress Note - Dictate Date Seen: Aug 09, 2024 Medical Necessity Reason Pt with a Central, PICC or Fol: No The following are medically ne: Tucker Catheter Reason for tucker catheter: Strict I&O Subjective Patient seen and examined at bedside. Extubated, currently on supplemental oxygen Overnight events reviewed. vital signs Vital Sign Date Time Temp Pulse Resp B/P (MAP) Pulse Ox O2 Delivery O2 Flow Rate FiO2 08/09/24 22:00 50 08/09/24 22:00 15 103/61 (75) 100 08/09/24 22:00 Nasal Cannula* 2 28 08/09/24 20:00 98.8 98.8 Total Intake and Output 08/08/24 08/08/24 08/09/24 15:00 23:00 07:00 Intake Total 1041.80 ml 1118.300 ml 933.786 ml Output Total 1900 ml 1275 ml Balance 1041.80 ml -781.700 ml -341.214 ml medications Current Medications Medications Dose Ordered Sig/Pete Route Start Time Stop Time Status Last Admin Dose Admin Nitroglycerin 0.4 mg Q5MINP PRN SL 08/03/24 16:15 Morphine Sulfate 2 mg Q30M PRN IV 08/03/24 16:15 Ondansetron HCl 4 mg Q4HPRN PRN IV 08/03/24 16:15 08/06/24 10:18 4 MG Morphine Sulfate 2 mg Q4HPRN PRN IV 08/03/24 16:15 Pantoprazole Sodium 40 mg DAILY IV 08/04/24 10:00 08/09/24 10:04 40 MG Furosemide 20 mg BIDD IV 08/03/24 18:00 08/09/24 17:59 20 MG Norepinephrine Bitartrate 250 ml @ 3.75 mls/hr Q24H IV 08/04/24 19:00 08/09/24 11:23 11.25 MLS/HR Propranolol HCl 5 mg TID PO 08/06/24 14:00 08/09/24 14:53 5 MG Enoxaparin Sodium 30 mg DAILY SC 08/07/24 10:00 08/09/24 10:04 30 MG Lactulose 30 ml Q6HR PO 08/08/24 18:00 08/09/24 17:59 30 ML Dextrose 1,000 ml @ 125 mls/hr Q8H IV 08/09/24 12:30 08/09/24 20:34 125 MLS/HR Piperacillin Sod/ Tazobactam Sod 100 ml @ 25 mls/hr Q8HR IV 08/09/24 22:00 08/09/24 22:01 25 MLS/HR objective Gen.: Patient lying in bed in no apparent distress. s/p extubation. On supplemental oxygen. Head: Normocephalic, atraumatic. Eyes: EOMI/PERRLA. Ears: Normal hearing. Normal anatomy. Neck/trachea: Trachea midline, supple. Nose: Normal external anatomy. Mouth: Moist mucous membranes. Chest: Decreased air entry bilaterally. No wheezing or rhonchi. Cardiovascular: Positive S1, positive S2. Regular rate and rhythm. Abdomen: Positive bowel sounds in all 4 quadrants. Soft, non-tender, non- distended. : Deferred. Rectal: Deferred. Skin: Warm, dry. Intact. Extremities: 2+ radial pulses bilaterally. No lower extremity edema. Neuro: Awake, alert, oriented x3. No gross motor or sensory deficits. Cranial nerves II through XII intact. Gait not assessed. laboratory and microbiology Laboratory Tests 08/09/24 20:15 08/09/24 03:00 Test 08/09/24 20:15 Range/Units Serum Glucose 126 H 74-106 mg/dL Assessment/Plan Impression: Acute hypoxic respiratory failure On mechanical ventilator Acute hepatic encephalopathy ALOC Aspiration pneumonitis Abdominal loculated ascites Events: Patient tolerated CPAP and was extubated uneventfully, placed on cool aerosol. Currently on 2 LPM NC Taper O2 as tolerated. On pressors for hemodynamic support Levophed 8 mcg/min Titrate to keep mean arterial pressure greater than 65 mmHg. Improving pressor requirements Off sedation. IV fluid hydration at 125 ml/hr. Continue antibiotics - Zosyn Continue lactulose. Diurese w/ Lasix Monitor renal function - creatinine trending down Monitor electrolytes. Supplement as necessary. HOB elevation Aspiration precautions. GI prophylaxis w/ Protonix F/u Dietary recommendations Labs and imaging reviewed. Rest of plan as noted below. Plan: s/p extubation On supplemental O2 at 2 LPM NC Titrate to keep O2 sats above 92%. Off sedation Improved ammonia level. On pressors for hemodynamic support Titrate to keep mean arterial pressure greater than 65 mmHg. Limited chest ultrasound shows trace right pleural effusion not amenable for thora. Limited abdominal ultrasound shows loculated LLQ ascites. IR consulted for paracentesis. Antibiotics. Monitor renal function Monitor electrolytes. Supplement as necessary. Monitor ins and outs. Maintain euvolemia. GI prophylaxis. DVT prophylaxis. Prognosis: Poor given patient's multiple co-morbidities. Condition: Critical Rest of plan per hospitalist and other consultants. A total of 35 minutes of critical care time was spent reviewing the patient record, examining the patient, making a diagnostic and therapeutic plan, discussing this plan with the medical personnel, following up on diagnostic studies and following the patient for clinical stability excluding any and all procedures. At least 50% of this time was spent in direct, [id number] contact. Thank you Dr. Skyler Reynoso MD, for allowing me to participate in this patient's care. Further recommendations will depend on the patient's clinical course. Please do not hesitate to contact me if you have any questions or concerns. This medical document was created using an electronic medical record system with [employer] dictation system. Although these documentations are being carefully reviewed, there may still be some phonetic and typographical changes. The errors are purely typographical, due to imperfection on the software program, and do not reflect any compromise in the patient's medical care. Dietary Evaluation Review Comments: 1) If GI is accessible consider Glucerna 1.2 @ 70 ml/hr goal rate as tolerated 2) If pt remains NPO for >7 days consider TPN to meet at least 75% of estimated needs 3) Advance pt diet when medically feasible to a Renal Specific K2,low phos,2gmNa,70gPro diet modified per ENVIRONMENTAL SERVICES TECHNICIAN recommendations 4) Continue current plan of care Expected Outcomes/Goals: 1) Pt to receive nutrition support within 7 days of NPO status 2) Pt diet to advance 3) F/U in 2-3 days Plan discussed with: Patient, Other (RAUDEL Cope) Critical Care Time(min): 35 MARA DEVINE MD Aug 09, 2024 23:24
[2024-08-10] VITALS (96 sets, daily range): BP systolic 85–118; BP diastolic 45–74; PULSE 44–83; RESP 8–28; TEMP 97.8–98.8; O2SAT 91–100
[2024-08-10 03:56] LABS: Basophils # (auto) 0.2 10 ^3/uL (0-0.2); Basophils % (auto) 1.9 % (0.0-2.0); Eosinophils # (auto) 1.1 10 ^3/uL (0-0.8); Eosinophils % (auto) 13.6 % (0.0-7.0); Hematocrit 29.1 % (41.0-53.0); Hemoglobin 9.7 g/dL (13.5-17.5); Lymphocytes % (auto) 12.2 % (10.0-50.0); Mean Corpuscular Hemoglobin 29.3 pg (28.0-32.0); Mean Corpuscular Hgb Conc. 33.3 g/dL (32.0-36.0); Mean Corpuscular Volume 88.1 fL (80.0-100.0); Monocytes # (auto) 1.3 10 ^3/uL (0-1.3); Monocytes % (auto) 15.6 % (0.0-12.0); Neutrophils # (auto) 4.6 10 ^3/uL (1.6-8.6); Neutrophils % (auto) 56.7 % (37.0-80.0); Nucleated Red Blood Cells % 0.2 %; Platelet Count (auto) 180 10^3/uL (140-450); Red Cell Distribution Width 16.2 % (11.8-14.3); White Blood Cell 8.1 10^3/uL (4.4-10.8)
[2024-08-10 03:58] LABS: Anion Gap 10 (5-15); Carbon Dioxide 29 mmol/L (20-31)
[2024-08-10 03:59] LABS: Calcium 9.4 mg/dL (8.7-10.4)
[2024-08-10 04:04] LABS: BUN/Creatinine Ratio 8.2 (10.0-20.0); Blood Urea Nitrogen 14 mg/dL (9-23)
[2024-08-10 04:19] LABS: Chloride 109 mmol/L (98-107); Glucose 124 mg/dL (74-106); Sodium 148 mmol/L (136-145)
[2024-08-10] MEDS: POTASSIUM CHL 20MEQ/100ML 100 ML IV SCH (05:48)
[2024-08-10] MEDS: MORPHINE SULFATE INJ 2 MG/ml SYRG IV PRN (11:07)
[2024-08-10] MEDS ORDERED: POTASSIUM CHL 20 Meq TABLET PO ONE (12:45)
[2024-08-10] MEDS: POTASSIUM EFFERVESENT TAB 25 MEQ PO ONE (13:12)
--- NOTE | 2024-08-10 14:50 | DVHPN2 ---
Subjective Assuming the care of the patient from today onwards. Detailed sign out obtained from my colleague. Patient is currently extubated. Reviewed: Care Plan Changes from previous H/P or p: No Changes Objective Vitals Vital Signs Date Time Temp Pulse Resp B/P (MAP) Pulse Ox O2 Delivery O2 Flow Rate FiO2 08/10/24 14:30 64 15 98/61 (73) 95 08/10/24 14:00 Room Air* 0 21 08/10/24 08:00 97.8 97.8 Intake/Output Intake and Output 08/10/24 07:00 Intake Total 3785.00 ml Output Total 5120 ml Balance -1335.00 ml Intake Oral 540 ml IV Total 3245.00 ml Output Urine Total 3800 ml Stool Total 1300 ml Gastric Drainage Total 20 ml Exam HEENT pupils are reactive Neck is supple CV is S1-S2 regular rate and rhythm Respiratory are clear GI positive bowel sounds positive besides Extremity trace edema LARGE ANIMAL HUSBANDRY TECHNICIAN no motor deficit. Medications Current Medications Medications Dose Ordered Sig/Pete Route Start Time Stop Time Status Last Admin Dose Admin Nitroglycerin 0.4 mg Q5MINP PRN SL 08/03/24 16:15 Morphine Sulfate 2 mg Q30M PRN IV 08/03/24 16:15 Ondansetron HCl 4 mg Q4HPRN PRN IV 08/03/24 16:15 08/06/24 10:18 4 MG Morphine Sulfate 2 mg Q4HPRN PRN IV 08/03/24 16:15 08/10/24 11:07 2 MG Pantoprazole Sodium 40 mg DAILY IV 08/04/24 10:00 08/10/24 07:57 40 MG Furosemide 20 mg BIDD IV 08/03/24 18:00 08/10/24 05:47 20 MG Norepinephrine Bitartrate 250 ml @ 3.75 mls/hr Q24H IV 08/04/24 19:00 08/10/24 02:30 15 MLS/HR Propranolol HCl 5 mg TID PO 08/06/24 14:00 08/10/24 12:57 5 MG Enoxaparin Sodium 30 mg DAILY SC 08/07/24 10:00 08/10/24 07:56 30 MG Lactulose 30 ml Q6HR PO 08/08/24 18:00 08/10/24 11:06 30 ML Dextrose 1,000 ml @ 125 mls/hr Q8H IV 08/09/24 12:30 08/10/24 14:00 125 MLS/HR Piperacillin Sod/ Tazobactam Sod 100 ml @ 25 mls/hr Q8HR IV 08/09/24 22:00 08/10/24 13:01 25 MLS/HR Laboratory Results Laboratory Tests 08/10/24 03:15 08/10/24 09:30 Chemistry Test 08/09/24 20:15 08/10/24 03:15 Calcium Level 9.4 mg/dL (8.7-10.4) 9.4 mg/dL (8.7-10.4) Urinalysis Test 08/03/24 12:00 Urine Color Light-yellow (Yellow) Urine Clarity Clear (Clear) Urine pH 7.5 (5.0-9.0) Urine Specific [place] 1.015 (1.001-1.035) Urine Protein Negative (Negative) Urine Ketones Negative (Negative) Urine Blood Negative /uL (Negative) Urine Nitrite Negative (Negative) Urine Bilirubin Negative (Negative) Urine Urobilinogen 2 mg/dL (Negative) H Urine Leukocyte Esterase Negative /uL (Negative) Urine RBC 1 /hpf (0 - 3) Urine WBC 3 /hpf (0 - 3) Urine Squamous Epithelial Cells None seen /hpf (<5) Urine Bacteria None seen /hpf (None Seen) Urine Glucose Normal mg/dL (Normal) Microbiology Microbiology Date/Time Source Procedure Growth Status 08/04/24 03:44 Nose MRSA Screen - Final Complete 08/03/24 11:54 Sputum Gram Stain - Final Complete 08/03/24 11:54 Sputum Respiratory Culture - Final Complete Assessment/Plan Assessment/Plan 48-year-old male with a known history of advanced liver cirrhosis, recurrent ascites with a previous history of paracentesis, presented to the hospital with altered mental status eventually found to be in respiratory failure requiring intubation. 1. Acute hypoxic respiratory failure secondary to hepatic encephalopathy status post intubation, status post [id number] 2. Acute metabolic/hepatic encephalopathy currently improved 3. Advanced liver cirrhosis 4. Loculated ascites 5. Acute kidney injury suspected secondary to vasomotor nephropathy 6 hypernatremia currently on D5W 7. Hypotension - -patient can be downgraded to D OU, continue current management, patient is still on Levophed -physical therapy evaluation and treatment. Plan discussed with: Patient My Orders Orders - SKY LESLIE MD Procedure Category Date Status Time * Swallow Request ST 08/10/24 Transmitted 12:39 Date of Service: Aug 10, 2024 Billing Provider: SKY LESLIE MD Common Visit Codes: NOT BILLABLE SKY LESLIE MD Aug 10, 2024 14:50
--- NOTE | 2024-08-10 16:17 | DVHPN2 ---
Progress Note - Dictate Date Seen: Aug 10, 2024 Medical Necessity Reason Pt with a Central, PICC or Fol: No The following are medically ne: Tucker Catheter Reason for tucker catheter: Strict I&O Subjective Adequate urine volumes, approximately 1 L of stool output yesterday vital signs Vital Sign Date Time Temp Pulse Resp B/P (MAP) Pulse Ox O2 Delivery O2 Flow Rate FiO2 08/10/24 16:00 17 95 Room Air* 0 21 08/10/24 16:00 59 08/10/24 15:36 89/61 08/10/24 08:00 97.8 97.8 Total Intake and Output 08/09/24 08/09/24 08/10/24 15:00 23:00 07:00 Intake Total 1087.50 ml 1237.50 ml 1460 ml Output Total 1050 ml 1550 ml 2520 ml Balance 37.50 ml -312.50 ml -1060 ml medications Current Medications Medications Dose Ordered Sig/Pete Route Start Time Stop Time Status Last Admin Dose Admin Nitroglycerin 0.4 mg Q5MINP PRN SL 08/03/24 16:15 Morphine Sulfate 2 mg Q30M PRN IV 08/03/24 16:15 Ondansetron HCl 4 mg Q4HPRN PRN IV 08/03/24 16:15 08/06/24 10:18 4 MG Morphine Sulfate 2 mg Q4HPRN PRN IV 08/03/24 16:15 08/10/24 11:07 2 MG Pantoprazole Sodium 40 mg DAILY IV 08/04/24 10:00 08/10/24 07:57 40 MG Furosemide 20 mg BIDD IV 08/03/24 18:00 08/10/24 05:47 20 MG Norepinephrine Bitartrate 250 ml @ 3.75 mls/hr Q24H IV 08/04/24 19:00 08/10/24 15:36 11.25 MLS/HR Propranolol HCl 5 mg TID PO 08/06/24 14:00 08/10/24 12:57 5 MG Enoxaparin Sodium 30 mg DAILY SC 08/07/24 10:00 08/10/24 07:56 30 MG Lactulose 30 ml Q6HR PO 08/08/24 18:00 08/10/24 11:06 30 ML Dextrose 1,000 ml @ 125 mls/hr Q8H IV 08/09/24 12:30 08/10/24 14:00 125 MLS/HR Piperacillin Sod/ Tazobactam Sod 100 ml @ 25 mls/hr Q8HR IV 08/09/24 22:00 08/10/24 13:01 25 MLS/HR objective Gen: nad heent: nc/at, lungs: cta anteriorly cvs: no rub abd: soft, bowel sounds audible ext: no edema laboratory and microbiology Laboratory Tests 08/10/24 09:30 08/10/24 03:15 Test 08/10/24 03:15 Range/Units Serum Glucose 124 H 74-106 mg/dL Assessment/Plan Acute kidney injury hemodynamically mediated Chronic kidney disease stage IIIB Acute respiratory failure resolved Hepatic encephalopathy with elevated ammonia Ascites Setting of cirrhosis Anemia hypernatremia - Essentially stable GFR, however concern for mild volume deplete state given hypernatremia and persistent hypotension\ - we will hold loop diuretic and reassess daily Dietary Evaluation Review Comments: 1) If GI is accessible consider Glucerna 1.2 @ 70 ml/hr goal rate as tolerated 2) If pt remains NPO for >7 days consider TPN to meet at least 75% of estimated needs 3) Advance pt diet when medically feasible to a Renal Specific K2,low phos,2gmNa,70gPro diet modified per HYDRAULICS TEACHER recommendations 4) Continue current plan of care Expected Outcomes/Goals: 1) Pt to receive nutrition support within 7 days of NPO status 2) Pt diet to advance 3) F/U in 2-3 days Plan discussed with: Other JOSE MIGUEL HESTER MD Aug 10, 2024 16:17
--- NOTE | 2024-08-10 18:46 | DVHPN2 ---
Progress Note - Dictate Date Seen: Aug 10, 2024 Medical Necessity Reason Pt with a Central, PICC or Fol: No The following are medically ne: Tucker Catheter Reason for tucker catheter: Strict I&O Subjective Patient seen and examined at bedside. Breathing on room air. Overnight events reviewed. vital signs Vital Sign Date Time Temp Pulse Resp B/P (MAP) Pulse Ox O2 Delivery O2 Flow Rate FiO2 08/10/24 18:30 60 17 106/72 (83) 96 08/10/24 18:00 Room Air* 0 21 08/10/24 16:00 98.2 98.2 Total Intake and Output 08/09/24 08/09/24 08/10/24 15:00 23:00 07:00 Intake Total 1087.50 ml 1237.50 ml 1460 ml Output Total 1050 ml 1550 ml 2520 ml Balance 37.50 ml -312.50 ml -1060 ml medications Current Medications Medications Dose Ordered Sig/Pete Route Start Time Stop Time Status Last Admin Dose Admin Nitroglycerin 0.4 mg Q5MINP PRN SL 08/03/24 16:15 Morphine Sulfate 2 mg Q30M PRN IV 08/03/24 16:15 Ondansetron HCl 4 mg Q4HPRN PRN IV 08/03/24 16:15 08/06/24 10:18 4 MG Morphine Sulfate 2 mg Q4HPRN PRN IV 08/03/24 16:15 08/10/24 17:59 2 MG Pantoprazole Sodium 40 mg DAILY IV 08/04/24 10:00 08/10/24 07:57 40 MG Furosemide 20 mg BIDD IV 08/03/24 18:00 08/10/24 05:47 20 MG Norepinephrine Bitartrate 250 ml @ 3.75 mls/hr Q24H IV 08/04/24 19:00 08/10/24 15:36 11.25 MLS/HR Propranolol HCl 5 mg TID PO 08/06/24 14:00 08/10/24 12:57 5 MG Enoxaparin Sodium 30 mg DAILY SC 08/07/24 10:00 08/10/24 07:56 30 MG Lactulose 30 ml Q6HR PO 08/08/24 18:00 08/10/24 16:59 30 ML Dextrose 1,000 ml @ 125 mls/hr Q8H IV 08/09/24 12:30 08/10/24 14:00 125 MLS/HR Piperacillin Sod/ Tazobactam Sod 100 ml @ 25 mls/hr Q8HR IV 08/09/24 22:00 08/10/24 13:01 25 MLS/HR objective Gen.: Patient lying in bed in no apparent distress. On room air. Head: Normocephalic, atraumatic. Eyes: EOMI/PERRLA. Ears: Normal hearing. Normal anatomy. Neck/trachea: Trachea midline, supple. Nose: Normal external anatomy. Mouth: Moist mucous membranes. Chest: Decreased air entry bilaterally. No wheezing or rhonchi. Cardiovascular: Positive S1, positive S2. Regular rate and rhythm. Abdomen: Positive bowel sounds in all 4 quadrants. Soft, non-tender, non- distended. : Deferred. Rectal: Deferred. Skin: Warm, dry. Intact. Extremities: 2+ radial pulses bilaterally. No lower extremity edema. Neuro: Awake, alert, oriented x3. No gross motor or sensory deficits. Cranial nerves II through XII intact. Gait not assessed. laboratory and microbiology Laboratory Tests 08/10/24 09:30 08/10/24 03:15 Test 08/10/24 03:15 Range/Units Serum Glucose 124 H 74-106 mg/dL Assessment/Plan Impression: Acute hypoxic respiratory failure Acute hepatic encephalopathy ALOC Aspiration pneumonitis Abdominal loculated ascites Events: Weaned off supplemental oxygen, currently on room air. No respiratory distress. On pressors for hemodynamic support Levophed 8 mcg/min Titrate to keep mean arterial pressure greater than 65 mmHg. Improving pressor requirements IV fluids w/ D5 at 125 ml/hr. Remains on pressors. BP labile. Taper pressors down as tolerated. Continue antibiotics - Zyvox Continue lactulose. Potassium supplementation Monitor renal function HOB elevation Aspiration precautions. GI prophylaxis w/ Protonix Labs and imaging reviewed. Rest of plan as noted below. Plan: s/p extubation on 08/09/24 Supplemental O2 PRN Titrate to keep O2 sats above 92%. Off sedation Improved ammonia level. On pressors for hemodynamic support Titrate to keep mean arterial pressure greater than 65 mmHg. Limited chest ultrasound shows trace right pleural effusion not amenable for thora. Limited abdominal ultrasound shows loculated LLQ ascites. IR consulted for paracentesis. Antibiotics. Monitor renal function Monitor electrolytes. Supplement as necessary. Monitor ins and outs. Maintain euvolemia. GI prophylaxis. DVT prophylaxis. Prognosis: Poor given patient's multiple co-morbidities. Condition: Critical Rest of plan per hospitalist and other consultants. A total of 35 minutes of critical care time was spent reviewing the patient record, examining the patient, making a diagnostic and therapeutic plan, discussing this plan with the medical personnel, following up on diagnostic studies and following the patient for clinical stability excluding any and all procedures. At least 50% of this time was spent in direct, [id number] contact. Thank you Dr. Skyler Reynoso MD, for allowing me to participate in this patient's care. Further recommendations will depend on the patient's clinical course. Please do not hesitate to contact me if you have any questions or concerns. This medical document was created using an electronic medical record system with [employer] dictation system. Although these documentations are being carefully reviewed, there may still be some phonetic and typographical changes. The errors are purely typographical, due to imperfection on the software program, and do not reflect any compromise in the patient's medical care. Dietary Evaluation Review Comments: 1) If GI is accessible consider Glucerna 1.2 @ 70 ml/hr goal rate as tolerated 2) If pt remains NPO for >7 days consider TPN to meet at least 75% of estimated needs 3) Advance pt diet when medically feasible to a Renal Specific K2,low phos,2gmNa,70gPro diet modified per HAIR DRESSER recommendations 4) Continue current plan of care Expected Outcomes/Goals: 1) Pt to receive nutrition support within 7 days of NPO status 2) Pt diet to advance 3) F/U in 2-3 days Plan discussed with: Other (RAUDEL Zelaya) Critical Care Time(min): 35 MARA DEVINE MD Aug 10, 2024 18:46
[2024-08-11] VITALS (92 sets, daily range): BP systolic 84–125; BP diastolic 45–77; PULSE 52–84; RESP 12–28; TEMP 97.2–99.6; O2SAT 91–99
--- NOTE | 2024-08-11 05:48 | DVH ---
CHEST RADIOGRAPH Indication: CENTRAL LINE PLACEMENT CONFIRMATION Technique: Single frontal view of the chest was obtained Comparison: XY CHEST PORTABLE on DOS: 08/09/24, XY CHEST PORTABLE on DOS: 08/09/24, XY CHEST PORTABLE o n DOS: 08/08/24 IMPRESSION: The heart appears prominent size. Patchy airspace opacity in the right lower lung may represent atel ectasis versus developing infiltrate. No sizable effusion or pneumothorax. Right IJ catheter tip is seen in the region of the right atrium, unchanged. There has been interval removal of enteric tube.
[2024-08-11 06:07] LABS: Anion Gap 7 (5-15); Carbon Dioxide 28 mmol/L (20-31); Chloride 103 mmol/L (98-107); Sodium 138 mmol/L (136-145)
[2024-08-11 06:08] LABS: Calcium 8.9 mg/dL (8.7-10.4)
[2024-08-11 06:13] LABS: BUN/Creatinine Ratio 8.6 (10.0-20.0); Blood Urea Nitrogen 13 mg/dL (9-23)
[2024-08-11 06:41] LABS: Glucose 114 mg/dL (74-106); Potassium 3.4 mmol/L (3.5-5.1)
[2024-08-11] MEDS: POTASSIUM CHL 20MEQ/100ML 100 ML IV SCH (12:36)
[2024-08-11] MEDS: NICOTINE 14 MG/24HR TOPICAL PATCH TD SCH (12:41)
--- NOTE | 2024-08-11 12:48 | DVHPN2 ---
Progress Note - Dictate Date Seen: Aug 11, 2024 Medical Necessity Reason Pt with a Central, PICC or Fol: No The following are medically ne: Tucker Catheter Reason for tucker catheter: Strict I&O Subjective patient seen in the [facility], cooperative, receiving D5W vital signs Vital Sign Date Time Temp Pulse Resp B/P (MAP) Pulse Ox O2 Delivery O2 Flow Rate FiO2 08/11/24 12:00 98.4 69 22 105/63 (77) 98.4 08/11/24 10:00 97 Room Air* 0 21 Total Intake and Output 08/10/24 08/10/24 08/11/24 15:00 23:00 07:00 Intake Total 1190.00 ml 1871.25 ml 1530 ml Output Total 1700 ml 800 ml Balance 1190.00 ml 171.25 ml 730 ml medications Current Medications Medications Dose Ordered Sig/Pete Route Start Time Stop Time Status Last Admin Dose Admin Nitroglycerin 0.4 mg Q5MINP PRN SL 08/03/24 16:15 Morphine Sulfate 2 mg Q30M PRN IV 08/03/24 16:15 Ondansetron HCl 4 mg Q4HPRN PRN IV 08/03/24 16:15 08/06/24 10:18 4 MG Morphine Sulfate 2 mg Q4HPRN PRN IV 08/03/24 16:15 08/11/24 00:38 2 MG Pantoprazole Sodium 40 mg DAILY IV 08/04/24 10:00 08/11/24 09:00 40 MG Furosemide 20 mg BIDD IV 08/03/24 18:00 08/11/24 05:44 20 MG Norepinephrine Bitartrate 250 ml @ 3.75 mls/hr Q24H IV 08/04/24 19:00 08/11/24 07:37 15 MLS/HR Propranolol HCl 5 mg TID PO 08/06/24 14:00 08/10/24 22:33 5 MG Enoxaparin Sodium 30 mg DAILY SC 08/07/24 10:00 08/11/24 09:00 30 MG Lactulose 30 ml Q6HR PO 08/08/24 18:00 08/11/24 10:58 30 ML Dextrose 1,000 ml @ 125 mls/hr Q8H IV 08/09/24 12:30 08/11/24 06:48 125 MLS/HR Piperacillin Sod/ Tazobactam Sod 100 ml @ 25 mls/hr Q8HR IV 08/09/24 22:00 08/11/24 05:51 25 MLS/HR Potassium Chloride 100 ml @ 50 mls/hr Q2H IV 08/11/24 12:00 08/11/24 15:59 08/11/24 12:36 50 MLS/HR Nicotine 1 patch DAILY TD 08/11/24 12:30 08/11/24 12:41 1 PATCH objective Gen: nad heent: nc/at, lungs: cta anteriorly cvs: no rub abd: soft, bowel sounds audible ext: no edema laboratory and microbiology Laboratory Tests 08/11/24 05:07 08/10/24 03:15 Test 08/11/24 05:07 Range/Units Serum Glucose 114 H 74-106 mg/dL Assessment/Plan Acute kidney injury hemodynamically mediated Chronic kidney disease stage IIIB Acute respiratory failure resolved Hepatic encephalopathy with elevated ammonia Ascites Setting of cirrhosis Anemia hypernatremia - kidney function continues to improve - agree with current IV fluids of D5W Dietary Evaluation Review Comments: 1) If GI is accessible consider Glucerna 1.2 @ 70 ml/hr goal rate as tolerated 2) If pt remains NPO for >7 days consider TPN to meet at least 75% of estimated needs 3) Advance pt diet when medically feasible to a Renal Specific K2,low phos,2gmNa,70gPro diet modified per MANAGER COMMUNITY RELATIONS recommendations 4) Continue current plan of care Expected Outcomes/Goals: 1) Pt to receive nutrition support within 7 days of NPO status 2) Pt diet to advance 3) F/U in 2-3 days Plan discussed with: Other JOSE MIGUEL HESTER MD Aug 11, 2024 12:48
[2024-08-11] MEDS: SOD CHL 0.45% 1,000 ML IV SCH (14:08)
[2024-08-11] MEDS: MIDODRINE HCL 10 MG TAB PO SCH (17:03)
--- NOTE | 2024-08-11 18:37 | DVHPN2 ---
Subjective Overnight events noted. Patient is still on Levophed at 6 mcg. Midodrine has been added. Reviewed: Care Plan Changes from previous H/P or p: No Changes Objective Vitals Vital Signs Date Time Temp Pulse Resp B/P (MAP) Pulse Ox O2 Delivery O2 Flow Rate FiO2 08/11/24 18:15 62 16 118/67 (84) 08/11/24 18:00 97 Room Air* 0 21 08/11/24 16:00 97.2 97.2 Intake/Output Intake and Output 08/11/24 07:00 Intake Total 4591.25 ml Output Total 2500 ml Balance 2091.25 ml Intake Oral 930 ml IV Total 3661.25 ml Output Urine Total 1500 ml Stool Total 1000 ml Exam HEENT pupils are reactive Neck is supple CV is S1-S2 regular rate and rhythm Respiratory are clear GI positive bowel sounds positive besides Extremity trace edema SUPER[employer]ARK [employer] no motor deficit. Medications Current Medications Medications Dose Ordered Sig/Pete Route Start Time Stop Time Status Last Admin Dose Admin Nitroglycerin 0.4 mg Q5MINP PRN SL 08/03/24 16:15 Morphine Sulfate 2 mg Q30M PRN IV 08/03/24 16:15 Ondansetron HCl 4 mg Q4HPRN PRN IV 08/03/24 16:15 08/11/24 16:35 4 MG Morphine Sulfate 2 mg Q4HPRN PRN IV 08/03/24 16:15 08/11/24 15:59 2 MG Pantoprazole Sodium 40 mg DAILY IV 08/04/24 10:00 08/11/24 09:00 40 MG Furosemide 20 mg BIDD IV 08/03/24 18:00 08/11/24 17:03 20 MG Norepinephrine Bitartrate 250 ml @ 3.75 mls/hr Q24H IV 08/04/24 19:00 08/11/24 07:37 15 MLS/HR Propranolol HCl 5 mg TID PO 08/06/24 14:00 08/10/24 22:33 5 MG Enoxaparin Sodium 30 mg DAILY SC 08/07/24 10:00 08/11/24 09:00 30 MG Lactulose 30 ml Q6HR PO 08/08/24 18:00 08/11/24 17:03 30 ML Piperacillin Sod/ Tazobactam Sod 100 ml @ 25 mls/hr Q8HR IV 08/09/24 22:00 08/11/24 14:06 25 MLS/HR Nicotine 1 patch DAILY TD 08/11/24 12:30 08/11/24 12:41 1 PATCH Sodium Chloride 1,000 ml @ 100 mls/hr Q10H IV 08/11/24 13:00 08/11/24 14:08 100 MLS/HR Midodrine 10 mg TID@0600,1200,1800 PO 08/11/24 18:00 08/11/24 17:03 10 MG Laboratory Results Laboratory Tests 08/10/24 03:15 08/11/24 05:07 Chemistry Test 08/11/24 05:07 Calcium Level 8.9 mg/dL (8.7-10.4) Urinalysis Test 08/03/24 12:00 Urine Color Light-yellow (Yellow) Urine Clarity Clear (Clear) Urine pH 7.5 (5.0-9.0) Urine Specific [place] 1.015 (1.001-1.035) Urine Protein Negative (Negative) Urine Ketones Negative (Negative) Urine Blood Negative /uL (Negative) Urine Nitrite Negative (Negative) Urine Bilirubin Negative (Negative) Urine Urobilinogen 2 mg/dL (Negative) H Urine Leukocyte Esterase Negative /uL (Negative) Urine RBC 1 /hpf (0 - 3) Urine WBC 3 /hpf (0 - 3) Urine Squamous Epithelial Cells None seen /hpf (<5) Urine Bacteria None seen /hpf (None Seen) Urine Glucose Normal mg/dL (Normal) Microbiology Microbiology Date/Time Source Procedure Growth Status 08/04/24 03:44 Nose MRSA Screen - Final Complete 08/03/24 11:54 Sputum Gram Stain - Final Complete 08/03/24 11:54 Sputum Respiratory Culture - Final Complete Assessment/Plan Assessment/Plan 48-year-old male with a known history of advanced liver cirrhosis, recurrent ascites with a previous history of paracentesis, presented to the hospital with altered mental status eventually found to be in respiratory failure requiring intubation. 1. Acute hypoxic respiratory failure secondary to hepatic encephalopathy status post intubation, status post [id number] 2. Acute metabolic/hepatic encephalopathy currently improved 3. Advanced liver cirrhosis 4. Loculated ascites 5. Acute kidney injury suspected secondary to vasomotor nephropathy 6 hypernatremia currently on D5W 7. Hypotension -titrate Levophed for systolic blood pressure more than 90, add midodrine, discontinue propranolol -physical therapy evaluation and treatment. Plan discussed with: Patient, Other (Patient's father and mother at bedside.) My Orders Orders - SKY LESLIE MD Procedure Category Date Status Time Midodrine Tablet PHA 08/11/24 In Process (Proamatine Tablet) 18:00 Complete Blood Count LAB 08/12/24 Verified 04:00 Comprehensive LAB 08/12/24 Verified Metabolic Panel 04:00 Ammonia LAB 08/12/24 Verified 04:00 Date of Service: Aug 11, 2024 Billing Provider: SKY LESLIE MD Common Visit Codes: NOT BILLABLE SKY LESLIE MD Aug 11, 2024 18:37
--- NOTE | 2024-08-11 18:55 | DVHPN2 ---
Progress Note - Dictate Date Seen: Aug 11, 2024 Medical Necessity Reason Pt with a Central, PICC or Fol: No The following are medically ne: Tucker Catheter Reason for tucker catheter: Strict I&O Subjective Patient seen and examined at bedside. Breathing on room air. Overnight events reviewed. vital signs Vital Sign Date Time Temp Pulse Resp B/P (MAP) Pulse Ox O2 Delivery O2 Flow Rate FiO2 08/11/24 18:15 62 16 118/67 (84) 08/11/24 18:00 97 Room Air* 0 21 08/11/24 16:00 97.2 97.2 Total Intake and Output 08/10/24 08/10/24 08/11/24 15:00 23:00 07:00 Intake Total 1190.00 ml 1871.25 ml 1530 ml Output Total 1700 ml 800 ml Balance 1190.00 ml 171.25 ml 730 ml medications Current Medications Medications Dose Ordered Sig/Pete Route Start Time Stop Time Status Last Admin Dose Admin Nitroglycerin 0.4 mg Q5MINP PRN SL 08/03/24 16:15 Morphine Sulfate 2 mg Q30M PRN IV 08/03/24 16:15 Ondansetron HCl 4 mg Q4HPRN PRN IV 08/03/24 16:15 08/11/24 16:35 4 MG Morphine Sulfate 2 mg Q4HPRN PRN IV 08/03/24 16:15 08/11/24 15:59 2 MG Pantoprazole Sodium 40 mg DAILY IV 08/04/24 10:00 08/11/24 09:00 40 MG Furosemide 20 mg BIDD IV 08/03/24 18:00 08/11/24 17:03 20 MG Norepinephrine Bitartrate 250 ml @ 3.75 mls/hr Q24H IV 08/04/24 19:00 08/11/24 07:37 15 MLS/HR Enoxaparin Sodium 30 mg DAILY SC 08/07/24 10:00 08/11/24 09:00 30 MG Lactulose 30 ml Q6HR PO 08/08/24 18:00 08/11/24 17:03 30 ML Piperacillin Sod/ Tazobactam Sod 100 ml @ 25 mls/hr Q8HR IV 08/09/24 22:00 08/11/24 14:06 25 MLS/HR Nicotine 1 patch DAILY TD 08/11/24 12:30 08/11/24 12:41 1 PATCH Sodium Chloride 1,000 ml @ 100 mls/hr Q10H IV 08/11/24 13:00 08/11/24 14:08 100 MLS/HR Midodrine 10 mg TID@0600,1200,1800 PO 08/11/24 18:00 08/11/24 17:03 10 MG objective Gen.: Patient lying in bed in no apparent distress. On room air. Head: Normocephalic, atraumatic. Eyes: EOMI/PERRLA. Ears: Normal hearing. Normal anatomy. Neck/trachea: Trachea midline, supple. Nose: Normal external anatomy. Mouth: Moist mucous membranes. Chest: Decreased air entry bilaterally. No wheezing or rhonchi. Cardiovascular: Positive S1, positive S2. Regular rate and rhythm. Abdomen: Positive bowel sounds in all 4 quadrants. Soft, non-tender, non- distended. : Deferred. Rectal: Deferred. Skin: Warm, dry. Intact. Extremities: 2+ radial pulses bilaterally. No lower extremity edema. Neuro: Awake, alert, oriented x3. No gross motor or sensory deficits. Cranial nerves II through XII intact. Gait not assessed. laboratory and microbiology Laboratory Tests 08/11/24 05:07 08/10/24 03:15 Test 08/11/24 05:07 Range/Units Serum Glucose 114 H 74-106 mg/dL Assessment/Plan Impression: Acute hypoxic respiratory failure Acute hepatic encephalopathy ALOC Aspiration pneumonitis Abdominal loculated ascites Events: Remains on room air. No respiratory distress. CXR demonstrates RLL patchy opacity, atelectasis vs pneumonia Patient on antibiotics. On pressors for hemodynamic support Levophed 8 mcg/min Titrate to keep mean arterial pressure greater than 65 mmHg. Improving pressor requirements IV fluids w/ D5W at 125 ml/hr. Remains on pressors. BP labile. Taper pressors down as tolerated. Continue antibiotics - Zosyn Continue lactulose. Potassium supplementation Monitor renal function Creatinine trending down Taper pressors as tolerated Start nicotine patch. HOB elevation Aspiration precautions. GI prophylaxis w/ Protonix Labs and imaging reviewed. Rest of plan as noted below. Plan: s/p extubation on 08/09/24 Supplemental O2 PRN Titrate to keep O2 sats above 92%. Off sedation Improved ammonia level. On pressors for hemodynamic support Titrate to keep mean arterial pressure greater than 65 mmHg. Limited chest ultrasound shows trace right pleural effusion not amenable for thora. Limited abdominal ultrasound shows loculated LLQ ascites. IR consulted for paracentesis. Antibiotics. Monitor renal function Monitor electrolytes. Supplement as necessary. Monitor ins and outs. Maintain euvolemia. GI prophylaxis. DVT prophylaxis. Prognosis: Poor given patient's multiple co-morbidities. Condition: Critical Rest of plan per hospitalist and other consultants. A total of 35 minutes of critical care time was spent reviewing the patient record, examining the patient, making a diagnostic and therapeutic plan, discussing this plan with the medical personnel, following up on diagnostic studies and following the patient for clinical stability excluding any and all procedures. At least 50% of this time was spent in direct, [id number] contact. Thank you Dr. Skyler Reynoso MD, for allowing me to participate in this patient's care. Further recommendations will depend on the patient's clinical course. Please do not hesitate to contact me if you have any questions or concerns. This medical document was created using an electronic medical record system with [employer] dictation system. Although these documentations are being carefully reviewed, there may still be some phonetic and typographical changes. The errors are purely typographical, due to imperfection on the software program, and do not reflect any compromise in the patient's medical care. Dietary Evaluation Review Comments: 1) If GI is accessible consider Glucerna 1.2 @ 70 ml/hr goal rate as tolerated 2) If pt remains NPO for >7 days consider TPN to meet at least 75% of estimated needs 3) Advance pt diet when medically feasible to a Renal Specific K2,low phos,2gmNa,70gPro diet modified per IMPREGNATOR AND DRIER HELPER recommendations 4) Continue current plan of care Expected Outcomes/Goals: 1) Pt to receive nutrition support within 7 days of NPO status 2) Pt diet to advance 3) F/U in 2-3 days Plan discussed with: Other (RAUDEL Milner) Critical Care Time(min): 35 MARA DEVINE MD Aug 11, 2024 18:55
[2024-08-12] VITALS (96 sets, daily range): BP systolic 80–127; BP diastolic 34–79; PULSE 54–99; RESP 12–26; TEMP 98–98.7; O2SAT 91–98
[2024-08-12 06:14] LABS: Basophils # (auto) 0.1 10 ^3/uL (0-0.2); Basophils % (auto) 1.6 % (0.0-2.0); Eosinophils # (auto) 1.1 10 ^3/uL (0-0.8); Eosinophils % (auto) 12.8 % (0.0-7.0); Hematocrit 28.3 % (41.0-53.0); Hemoglobin 9.6 g/dL (13.5-17.5); Lymphocytes # (auto) 1.1 10 ^3/uL (0.4-5.4); Lymphocytes % (auto) 12.8 % (10.0-50.0); Mean Corpuscular Hemoglobin 29.8 pg (28.0-32.0); Mean Corpuscular Volume 87.6 fL (80.0-100.0); Monocytes # (auto) 1.3 10 ^3/uL (0-1.3); Monocytes % (auto) 15.2 % (0.0-12.0); Neutrophils # (auto) 4.8 10 ^3/uL (1.6-8.6); Neutrophils % (auto) 57.6 % (37.0-80.0); Nucleated Red Blood Cells % 0.1 %; Platelet Count (auto) 181 10^3/uL (140-450); Red Blood Cells 3.23 10^6/uL (4.5-5.90); Red Cell Distribution Width 15.4 % (11.8-14.3); White Blood Cell 8.4 10^3/uL (4.4-10.8)
[2024-08-12 06:15] LABS: Anion Gap 9 (5-15); Aspartate Aminotransferase 23 U/L (13-40); BUN/Creatinine Ratio 8.2 (10.0-20.0); Blood Urea Nitrogen 12 mg/dL (9-23); Calcium 8.7 mg/dL (8.7-10.4); Carbon Dioxide 25 mmol/L (20-31); Chloride 102 mmol/L (98-107); Glucose 90 mg/dL (74-106); Potassium 3.8 mmol/L (3.5-5.1); Sodium 136 mmol/L (136-145)
[2024-08-12 06:16] LABS: Total Protein 6.2 g/dL (5.7-8.2)
[2024-08-12 06:25] LABS: Alanine Aminotransferase < 9 U/L (7-40); Albumin 2.9 g/dL (3.2-4.8); Alkaline Phosphatase 316 U/L (46-116); Bilirubin, Total 2.1 mg/dL (0.2-1.0)
[2024-08-12] MEDS ORDERED: NICOTINE 14 MG/24HR TOPICAL PATCH TD SCH (10:00)
--- NOTE | 2024-08-12 16:41 | DVHPN2 ---
Progress Note - Dictate Date Seen: Aug 12, 2024 Medical Necessity Reason Pt with a Central, PICC or Fol: No The following are medically ne: Tucker Catheter Reason for tucker catheter: Strict I&O Subjective Patient seen earlier this afternoon, awake and alert states that he continues to feel better each day. vital signs Vital Sign Date Time Temp Pulse Resp B/P (MAP) Pulse Ox O2 Delivery O2 Flow Rate FiO2 08/12/24 16:00 71 08/12/24 16:00 17 97 Room Air* 0 21 08/12/24 15:17 121/70 08/12/24 12:00 98.4 98.4 Total Intake and Output 08/11/24 08/11/24 08/12/24 15:00 23:00 07:00 Intake Total 1175 ml 1495 ml 1295 ml Output Total 900 ml 1900 ml Balance 1175 ml 595 ml -605 ml medications Current Medications Medications Dose Ordered Sig/Pete Route Start Time Stop Time Status Last Admin Dose Admin Nitroglycerin 0.4 mg Q5MINP PRN SL 08/03/24 16:15 Morphine Sulfate 2 mg Q30M PRN IV 08/03/24 16:15 Ondansetron HCl 4 mg Q4HPRN PRN IV 08/03/24 16:15 08/11/24 16:35 4 MG Morphine Sulfate 2 mg Q4HPRN PRN IV 08/03/24 16:15 08/12/24 14:47 2 MG Pantoprazole Sodium 40 mg DAILY IV 08/04/24 10:00 08/12/24 08:01 40 MG Furosemide 20 mg BIDD IV 08/03/24 18:00 08/12/24 05:25 20 MG Norepinephrine Bitartrate 250 ml @ 3.75 mls/hr Q24H IV 08/04/24 19:00 08/12/24 00:15 15 MLS/HR Enoxaparin Sodium 30 mg DAILY SC 08/07/24 10:00 08/12/24 08:02 30 MG Lactulose 30 ml Q6HR PO 08/08/24 18:00 08/12/24 11:54 30 ML Piperacillin Sod/ Tazobactam Sod 100 ml @ 25 mls/hr Q8HR IV 08/09/24 22:00 08/12/24 14:32 25 MLS/HR Nicotine 1 patch DAILY TD 08/11/24 12:30 08/12/24 08:02 1 PATCH Sodium Chloride 1,000 ml @ 100 mls/hr Q10H IV 08/11/24 13:00 08/12/24 08:01 100 MLS/HR Midodrine 10 mg TID@0600,1200,1800 PO 08/11/24 18:00 08/12/24 11:54 10 MG objective Gen: nad heent: nc/at, lungs: cta anteriorly cvs: no rub abd: soft, bowel sounds audible ext: no edema laboratory and microbiology Laboratory Tests 08/12/24 05:16 Test 08/12/24 05:16 Range/Units Serum Glucose 90 74-106 mg/dL Assessment/Plan Acute kidney injury hemodynamically mediated Chronic kidney disease stage IIIB Acute respiratory failure resolved Hepatic encephalopathy with elevated ammonia Ascites Setting of cirrhosis Anemia hypernatremia - agree with current plan of care - We will continue to follow during time course of LISA recovery Dietary Evaluation Review Comments: 1) If GI is accessible consider Glucerna 1.2 @ 70 ml/hr goal rate as tolerated 2) If pt remains NPO for >7 days consider TPN to meet at least 75% of estimated needs 3) Advance pt diet when medically feasible to a Renal Specific K2,low phos,2gmNa,70gPro diet modified per HAND BLOCKER recommendations 4) Continue current plan of care Expected Outcomes/Goals: 1) Pt to receive nutrition support within 7 days of NPO status 2) Pt diet to advance 3) F/U in 2-3 days Plan discussed with: Patient JOSE MIGUEL HESTER MD Aug 12, 2024 16:41
--- NOTE | 2024-08-12 17:24 | DVHPN2 ---
Subjective Overnight events noted. Patient is still on Levophed at 6 mcg. Midodrine has been added. Reviewed: Care Plan Changes from previous H/P or p: No Changes Objective Vitals Vital Signs Date Time Temp Pulse Resp B/P (MAP) Pulse Ox O2 Delivery O2 Flow Rate FiO2 08/12/24 17:08 104/63 08/12/24 16:45 68 17 93 08/12/24 16:00 Room Air* 0 21 08/12/24 12:00 98.4 98.4 Intake/Output Intake and Output 08/12/24 07:00 Intake Total 3965 ml Output Total 2800 ml Balance 1165 ml Intake Oral 830 ml IV Total 3135 ml Output Urine Total 2300 ml Stool Total 500 ml Exam HEENT pupils are reactive Neck is supple CV is S1-S2 regular rate and rhythm Respiratory are clear GI positive bowel sounds positive besides 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 Medications Current Medications Medications Dose Ordered Sig/Pete Route Start Time Stop Time Status Last Admin Dose Admin Nitroglycerin 0.4 mg Q5MINP PRN SL 08/03/24 16:15 Morphine Sulfate 2 mg Q30M PRN IV 08/03/24 16:15 Ondansetron HCl 4 mg Q4HPRN PRN IV 08/03/24 16:15 08/11/24 16:35 4 MG Morphine Sulfate 2 mg Q4HPRN PRN IV 08/03/24 16:15 08/12/24 14:47 2 MG Pantoprazole Sodium 40 mg DAILY IV 08/04/24 10:00 08/12/24 08:01 40 MG Furosemide 20 mg BIDD IV 08/03/24 18:00 08/12/24 17:08 20 MG Norepinephrine Bitartrate 250 ml @ 3.75 mls/hr Q24H IV 08/04/24 19:00 08/12/24 00:15 15 MLS/HR Enoxaparin Sodium 30 mg DAILY SC 08/07/24 10:00 08/12/24 08:02 30 MG Lactulose 30 ml Q6HR PO 08/08/24 18:00 08/12/24 17:08 30 ML Piperacillin Sod/ Tazobactam Sod 100 ml @ 25 mls/hr Q8HR IV 08/09/24 22:00 08/12/24 14:32 25 MLS/HR Nicotine 1 patch DAILY TD 08/11/24 12:30 08/12/24 08:02 1 PATCH Sodium Chloride 1,000 ml @ 100 mls/hr Q10H IV 08/11/24 13:00 08/12/24 08:01 100 MLS/HR Midodrine 10 mg TID@0600,1200,1800 PO 08/11/24 18:00 08/12/24 17:08 10 MG Laboratory Results Laboratory Tests 08/12/24 05:16 Chemistry Test 08/12/24 05:16 Albumin 2.9 g/dL (3.2-4.8) L Calcium Level 8.7 mg/dL (8.7-10.4) Total Protein 6.2 g/dL (5.7-8.2) LFT Test 08/12/24 05:16 Alanine Aminotransferase (ALT) < 9 U/L (7-40) Alkaline Phosphatase 316 U/L (46-116) H Aspartate Amino Transferase (AST) 23 U/L (13-40) Total Bilirubin 2.1 mg/dL (0.2-1.0) H Urinalysis Test 08/03/24 12:00 Urine Color Light-yellow (Yellow) Urine Clarity Clear (Clear) Urine pH 7.5 (5.0-9.0) Urine Specific [place] 1.015 (1.001-1.035) Urine Protein Negative (Negative) Urine Ketones Negative (Negative) Urine Blood Negative /uL (Negative) Urine Nitrite Negative (Negative) Urine Bilirubin Negative (Negative) Urine Urobilinogen 2 mg/dL (Negative) H Urine Leukocyte Esterase Negative /uL (Negative) Urine RBC 1 /hpf (0 - 3) Urine WBC 3 /hpf (0 - 3) Urine Squamous Epithelial Cells None seen /hpf (<5) Urine Bacteria None seen /hpf (None Seen) Urine Glucose Normal mg/dL (Normal) Microbiology Microbiology Date/Time Source Procedure Growth Status 08/04/24 03:44 Nose MRSA Screen - Final Complete 08/03/24 11:54 Sputum Gram Stain - Final Complete 08/03/24 11:54 Sputum Respiratory Culture - Final Complete Assessment/Plan Assessment/Plan 48-year-old male with a known history of advanced liver cirrhosis, recurrent ascites with a previous history of paracentesis, presented to the hospital with altered mental status eventually found to be in respiratory failure requiring intubation. 1. Acute hypoxic respiratory failure secondary to hepatic encephalopathy status post intubation, status post [id number] 2. Acute metabolic/hepatic encephalopathy currently improved 3. Advanced liver cirrhosis 4. Loculated ascites 5. Acute kidney injury suspected secondary to vasomotor nephropathy 6 hypernatremia currently on D5W 7. Hypotension -titrate Levophed for systolic blood pressure more than 90, continue midodrine 5 mg p.o. t.i.d. -physical therapy evaluation and treatment. Plan discussed with: Patient, Other Date of Service: Aug 12, 2024 Billing Provider: SKY LESLIE MD Common Visit Codes: NOT BILLABLE SKY LESLIE MD Aug 12, 2024 17:24
--- NOTE | 2024-08-12 19:36 | DVHPN2 ---
Progress Note - Dictate Date Seen: Aug 12, 2024 Medical Necessity Reason Pt with a Central, PICC or Fol: No The following are medically ne: Tucker Catheter Reason for tucker catheter: Strict I&O Subjective Patient seen and examined at bedside. Breathing on room air. Overnight events reviewed. vital signs Vital Sign Date Time Temp Pulse Resp B/P (MAP) Pulse Ox O2 Delivery O2 Flow Rate FiO2 08/12/24 18:45 55 17 105/59 (74) 94 08/12/24 18:00 Room Air* 0 21 08/12/24 16:00 98.0 98.0 Total Intake and Output 08/11/24 08/11/24 08/12/24 15:00 23:00 07:00 Intake Total 1175 ml 1495 ml 1295 ml Output Total 900 ml 1900 ml Balance 1175 ml 595 ml -605 ml medications Current Medications Medications Dose Ordered Sig/Peet Route Start Time Stop Time Status Last Admin Dose Admin Nitroglycerin 0.4 mg Q5MINP PRN SL 08/03/24 16:15 Morphine Sulfate 2 mg Q30M PRN IV 08/03/24 16:15 Ondansetron HCl 4 mg Q4HPRN PRN IV 08/03/24 16:15 08/11/24 16:35 4 MG Morphine Sulfate 2 mg Q4HPRN PRN IV 08/03/24 16:15 08/12/24 14:47 2 MG Pantoprazole Sodium 40 mg DAILY IV 08/04/24 10:00 08/12/24 08:01 40 MG Furosemide 20 mg BIDD IV 08/03/24 18:00 08/12/24 17:08 20 MG Norepinephrine Bitartrate 250 ml @ 3.75 mls/hr Q24H IV 08/04/24 19:00 08/12/24 17:49 11.25 MLS/HR Enoxaparin Sodium 30 mg DAILY SC 08/07/24 10:00 08/12/24 08:02 30 MG Lactulose 30 ml Q6HR PO 08/08/24 18:00 08/12/24 17:08 30 ML Piperacillin Sod/ Tazobactam Sod 100 ml @ 25 mls/hr Q8HR IV 08/09/24 22:00 08/12/24 14:32 25 MLS/HR Nicotine 1 patch DAILY TD 08/11/24 12:30 12/8/24 08:02 1 PATCH Sodium Chloride 1,000 ml @ 100 mls/hr Q10H IV 08/11/24 13:00 08/12/24 08:01 100 MLS/HR Midodrine 10 mg TID@0600,1200,1800 PO 08/11/24 18:00 08/12/24 17:08 10 MG objective Gen.: Patient lying in bed in no apparent distress. On room air. Head: Normocephalic, atraumatic. Eyes: EOMI/PERRLA. Ears: Normal hearing. Normal anatomy. Neck/trachea: Trachea midline, supple. Nose: Normal external anatomy. Mouth: Moist mucous membranes. Chest: Decreased air entry bilaterally. No wheezing or rhonchi. Cardiovascular: Positive S1, positive S2. Regular rate and rhythm. Abdomen: Positive bowel sounds in all 4 quadrants. Soft, non-tender, non- distended. : Deferred. Rectal: Deferred. Skin: Warm, dry. Intact. Extremities: 2+ radial pulses bilaterally. No lower extremity edema. Neuro: Awake, alert, oriented x3. No gross motor or sensory deficits. Cranial nerves II through XII intact. Gait not assessed. laboratory and microbiology Laboratory Tests 08/12/24 05:16 Test 08/12/24 05:16 Range/Units Serum Glucose 90 74-106 mg/dL Assessment/Plan Impression: Acute hypoxic respiratory failure Acute hepatic encephalopathy ALOC Aspiration pneumonitis Abdominal loculated ascites Events: Remains on room air. No respiratory distress. On pressors for hemodynamic support Levophed 6 mcg/min Titrate to keep mean arterial pressure greater than 65 mmHg. Improving pressor requirements On midodrine yesterday. Ammonia improving. Continue lactulose. Remains on pressors. BP labile. Taper pressors down as tolerated. Continue antibiotics - Zosyn Nicotine patch. Potassium supplementation Monitor renal function Monitor electrolytes. Supplement as necessary. HOB elevation Aspiration precautions. GI prophylaxis w/ Protonix Improving mentation. Labs and imaging reviewed. Rest of plan as noted below. Plan: s/p extubation on 08/09/24 Supplemental O2 PRN Titrate to keep O2 sats above 92%. Off sedation Improved ammonia level. On pressors for hemodynamic support Titrate to keep mean arterial pressure greater than 65 mmHg. Limited chest ultrasound shows trace right pleural effusion not amenable for thora. Limited abdominal ultrasound shows loculated LLQ ascites. IR consulted for paracentesis. Antibiotics. Monitor renal function Monitor electrolytes. Supplement as necessary. Monitor ins and outs. Maintain euvolemia. GI prophylaxis. DVT prophylaxis. Prognosis: Poor given patient's multiple co-morbidities. Condition: Critical Rest of plan per hospitalist and other consultants. A total of 35 minutes of critical care time was spent reviewing the patient record, examining the patient, making a diagnostic and therapeutic plan, discussing this plan with the medical personnel, following up on diagnostic studies and following the patient for clinical stability excluding any and all procedures. At least 50% of this time was spent in direct, [id number] contact. Thank you Dr. Skyler Reynoso MD, for allowing me to participate in this patient's care. Further recommendations will depend on the patient's clinical course. Please do not hesitate to contact me if you have any questions or concerns. This medical document was created using an electronic medical record system with [employer] dictation system. Although these documentations are being carefully reviewed, there may still be some phonetic and typographical changes. The errors are purely typographical, due to imperfection on the software program, and do not reflect any compromise in the patient's medical care. Dietary Evaluation Review Comments: 1) If GI is accessible consider Glucerna 1.2 @ 70 ml/hr goal rate as tolerated 2) If pt remains NPO for >7 days consider TPN to meet at least 75% of estimated needs 3) Advance pt diet when medically feasible to a Renal Specific K2,low phos,2gmNa,70gPro diet modified per BLOCK MACHINE OPERATOR recommendations 4) Continue current plan of care Expected Outcomes/Goals: 1) Pt to receive nutrition support within 7 days of NPO status 2) Pt diet to advance 3) F/U in 2-3 days Plan discussed with: Other (RAUDEL Milner) Critical Care Time(min): 35 MARA DEVINE MD Aug 12, 2024 19:36
[2024-08-13] VITALS (80 sets, daily range): BP systolic 79–121; BP diastolic 41–73; PULSE 54–93; RESP 10–24; TEMP 98.1–99.3; O2SAT 89–100
[2024-08-13 05:09] LABS: Basophils # (auto) 0.1 10 ^3/uL (0-0.2); Basophils % (auto) 1.6 % (0.0-2.0); Eosinophils % (auto) 13.4 % (0.0-7.0); Hematocrit 28.1 % (41.0-53.0); Hemoglobin 9.3 g/dL (13.5-17.5); Lymphocytes # (auto) 0.8 10 ^3/uL (0.4-5.4); Lymphocytes % (auto) 10.6 % (10.0-50.0); Mean Corpuscular Hemoglobin 29.1 pg (28.0-32.0); Mean Corpuscular Hgb Conc. 33.2 g/dL (32.0-36.0); Mean Corpuscular Volume 87.8 fL (80.0-100.0); Monocytes # (auto) 1.1 10 ^3/uL (0-1.3); Monocytes % (auto) 14.5 % (0.0-12.0); Neutrophils # (auto) 4.4 10 ^3/uL (1.6-8.6); Neutrophils % (auto) 59.9 % (37.0-80.0); Platelet Count (auto) 190 10^3/uL (140-450); Red Cell Distribution Width 15.7 % (11.8-14.3); White Blood Cell 7.4 10^3/uL (4.4-10.8)
[2024-08-13 05:38] LABS: Chloride 102 mmol/L (98-107); Potassium 3.6 mmol/L (3.5-5.1); Sodium 136 mmol/L (136-145)
[2024-08-13 05:39] LABS: Anion Gap 8 (5-15); Carbon Dioxide 26 mmol/L (20-31)
[2024-08-13 05:44] LABS: BUN/Creatinine Ratio 8.4 (10.0-20.0); Blood Urea Nitrogen 13 mg/dL (9-23)
[2024-08-13 06:03] LABS: Calcium 8.2 mg/dL (8.7-10.4); Glucose 138 mg/dL (74-106)
[2024-08-13] MEDS: ACETAMINOPHEN/CODEINE#3 (300/30mg) TAB PO PRN (11:50)
[2024-08-13] MEDS ORDERED: LACTULOSE 20Gm/30ML SOLN PO PRN (14:30)
--- NOTE | 2024-08-13 15:55 | DVHPN2 ---
Progress Note Date Seen: Aug 13, 2024 Medical Necessity Reason Pt with a Central, PICC or Fol: No The following are medically ne: Tucker Catheter Reason for tucker catheter: Strict I&O Subjective Patient reports: No new complaints Review of Systems: HEENT:Normal, CVS:Normal, RESPIRATORY:Normal, GI:Normal, :Normal, MSK:Normal, NEURO:Normal Objective vital signs Vital Sign Date Time Temp Pulse Resp B/P (MAP) Pulse Ox O2 Delivery O2 Flow Rate FiO2 08/13/24 14:30 63 16 90/50 (63) 95 08/13/24 14:00 Room Air* 0 21 08/13/24 12:15 99.3 99.3 Total Intake and Output 08/12/24 08/12/24 08/13/24 15:00 23:00 07:00 Intake Total 1081.55 ml 1405.00 ml 1486.25 ml Output Total 1125 ml 2100 ml Balance 1081.55 ml 280.00 ml -613.75 ml medications Current Medications Medications Dose Ordered Sig/Pete Route Start Time Stop Time Status Last Admin Dose Admin Nitroglycerin 0.4 mg Q5MINP PRN SL 08/03/24 16:15 Morphine Sulfate 2 mg Q30M PRN IV 08/03/24 16:15 Ondansetron HCl 4 mg Q4HPRN PRN IV 08/03/24 16:15 08/11/24 16:35 4 MG Morphine Sulfate 2 mg Q4HPRN PRN IV 08/03/24 16:15 08/12/24 23:53 2 MG Pantoprazole Sodium 40 mg DAILY IV 08/04/24 10:00 08/13/24 09:13 40 MG Furosemide 20 mg BIDD IV 08/03/24 18:00 08/13/24 05:07 20 MG Norepinephrine Bitartrate 250 ml @ 3.75 mls/hr Q24H IV 08/04/24 19:00 08/12/24 17:49 11.25 MLS/HR Enoxaparin Sodium 30 mg DAILY SC 08/07/24 10:00 08/13/24 09:13 30 MG Piperacillin Sod/ Tazobactam Sod 100 ml @ 25 mls/hr Q8HR IV 08/09/24 22:00 08/13/24 13:16 25 MLS/HR Nicotine 1 patch DAILY TD 08/11/24 12:30 08/13/24 13:12 1 PATCH Sodium Chloride 1,000 ml @ 100 mls/hr Q10H IV 08/11/24 13:00 08/13/24 10:05 100 MLS/HR Midodrine 10 mg TID@0600,1200,1800 PO 08/11/24 18:00 08/13/24 11:50 10 MG Acetaminophen/ Codeine Phosphate 2 tab Q6HP PRN PO 08/13/24 11:45 08/13/24 11:50 2 TAB Lactulose 30 ml BIDPRN PRN PO 08/13/24 14:30 Examination: GENERAL:Abnormal, HEENT:Abnormal, ABDOMEN:Abnormal laboratory and microbiology Laboratory Tests 08/13/24 04:39 Test 08/13/24 04:39 Range/Units Serum Glucose 138 H 74-106 mg/dL Microbiology Date/Time Source Procedure Growth Status 08/04/24 03:44 Nose MRSA Screen - Final Complete 08/03/24 11:54 Sputum Gram Stain - Final Complete 08/03/24 11:54 Sputum Respiratory Culture - Final Complete Problem List/Assessment/Plan Problem List/Assessment/Plan Acute kidney injury hemodynamically mediated Chronic kidney disease stage IIIB Acute respiratory failure resolved Hepatic encephalopathy with elevated ammonia Ascites Setting of cirrhosis Anemia hypernatremia recs dc ivf renal function stable Plan discussed with: Patient Dietary Evaluation Review Comments: 1) If GI is accessible consider Glucerna 1.2 @ 70 ml/hr goal rate as tolerated 2) If pt remains NPO for >7 days consider TPN to meet at least 75% of estimated needs 3) Advance pt diet when medically feasible to a Renal Specific K2,low phos,2gmNa,70gPro diet modified per REHABILITATION SPECIALIST recommendations 4) Continue current plan of care Expected Outcomes/Goals: 1) Pt to receive nutrition support within 7 days of NPO status 2) Pt diet to advance 3) F/U in 2-3 days COMFORT BANGURA MD Aug 13, 2024 15:55
--- NOTE | 2024-08-13 16:13 | DVHPN2 ---
Subjective Overnight events noted. Patient is still on Levophed at 6 mcg. Midodrine has been added. Reviewed: Care Plan Changes from previous H/P or p: No Changes Objective Vitals Vital Signs Date Time Temp Pulse Resp B/P (MAP) Pulse Ox O2 Delivery O2 Flow Rate FiO2 08/13/24 14:30 63 16 90/50 (63) 95 08/13/24 14:00 Room Air* 0 21 08/13/24 12:15 99.3 99.3 Intake/Output Intake and Output 08/13/24 07:00 Intake Total 3972.80 ml Output Total 3225 ml Balance 747.80 ml Intake Oral 1020 ml IV Total 2952.80 ml Output Urine Total 3225 ml # Bowel Movements 4 Exam HEENT pupils are reactive Neck is supple CV is S1-S2 regular rate and rhythm Respiratory are clear GI positive bowel sounds positive besides 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 Medications Current Medications Medications Dose Ordered Sig/Pete Route Start Time Stop Time Status Last Admin Dose Admin Nitroglycerin 0.4 mg Q5MINP PRN SL 08/03/24 16:15 Morphine Sulfate 2 mg Q30M PRN IV 08/03/24 16:15 Ondansetron HCl 4 mg Q4HPRN PRN IV 08/03/24 16:15 08/11/24 16:35 4 MG Morphine Sulfate 2 mg Q4HPRN PRN IV 08/03/24 16:15 08/12/24 23:53 2 MG Pantoprazole Sodium 40 mg DAILY IV 08/04/24 10:00 08/13/24 09:13 40 MG Furosemide 20 mg BIDD IV 08/03/24 18:00 08/13/24 05:07 20 MG Norepinephrine Bitartrate 250 ml @ 3.75 mls/hr Q24H IV 08/04/24 19:00 08/12/24 17:49 11.25 MLS/HR Enoxaparin Sodium 30 mg DAILY SC 08/07/24 10:00 08/13/24 09:13 30 MG Piperacillin Sod/ Tazobactam Sod 100 ml @ 25 mls/hr Q8HR IV 08/09/24 22:00 08/13/24 13:16 25 MLS/HR Nicotine 1 patch DAILY TD 08/11/24 12:30 08/13/24 13:12 1 PATCH Midodrine 10 mg TID@0600,1200,1800 PO 08/11/24 18:00 08/13/24 11:50 10 MG Acetaminophen/ Codeine Phosphate 2 tab Q6HP PRN PO 08/13/24 11:45 08/13/24 11:50 2 TAB Lactulose 30 ml BIDPRN PRN PO 08/13/24 14:30 Laboratory Results Laboratory Tests 08/13/24 04:39 Chemistry Test 08/13/24 04:39 Calcium Level 8.2 mg/dL (8.7-10.4) L Urinalysis Test 08/03/24 12:00 Urine Color Light-yellow (Yellow) Urine Clarity Clear (Clear) Urine pH 7.5 (5.0-9.0) Urine Specific [place] 1.015 (1.001-1.035) Urine Protein Negative (Negative) Urine Ketones Negative (Negative) Urine Blood Negative /uL (Negative) Urine Nitrite Negative (Negative) Urine Bilirubin Negative (Negative) Urine Urobilinogen 2 mg/dL (Negative) H Urine Leukocyte Esterase Negative /uL (Negative) Urine RBC 1 /hpf (0 - 3) Urine WBC 3 /hpf (0 - 3) Urine Squamous Epithelial Cells None seen /hpf (<5) Urine Bacteria None seen /hpf (None Seen) Urine Glucose Normal mg/dL (Normal) Microbiology Microbiology Date/Time Source Procedure Growth Status 08/04/24 03:44 Nose MRSA Screen - Final Complete 08/03/24 11:54 Sputum Gram Stain - Final Complete 08/03/24 11:54 Sputum Respiratory Culture - Final Complete Assessment/Plan Assessment/Plan 48-year-old male with a known history of advanced liver cirrhosis, recurrent ascites with a previous history of paracentesis, presented to the hospital with altered mental status eventually found to be in respiratory failure requiring intubation. 1. Acute hypoxic respiratory failure secondary to hepatic encephalopathy status post intubation, status post [id number] 2. Acute metabolic/hepatic encephalopathy currently improved 3. Advanced liver cirrhosis 4. Loculated ascites 5. Acute kidney injury suspected secondary to vasomotor nephropathy 6 hypernatremia currently on D5W 7. Hypotension -titrate Levophed for systolic blood pressure more than 90, continue midodrine 10 mg p.o. t.i.d. -physical therapy evaluation and treatment. Plan discussed with: Patient My Orders Orders - SKY LESLIE MD Procedure Category Date Status Time Lactulose Oral PHA 08/13/24 In Process 14:30 Date of Service: Aug 13, 2024 Billing Provider: SKY LESLIE MD Common Visit Codes: NOT BILLABLE SKY LESLIE MD Aug 13, 2024 16:13
--- NOTE | 2024-08-13 20:41 | DVHPN2 ---
Progress Note - Dictate Date Seen: Aug 13, 2024 Medical Necessity Reason Pt with a Central, PICC or Fol: No The following are medically ne: Tucker Catheter Reason for tucker catheter: Strict I&O Subjective Patient seen and examined at bedside. Breathing on room air. Overnight events reviewed. vital signs Vital Sign Date Time Temp Pulse Resp B/P (MAP) Pulse Ox O2 Delivery O2 Flow Rate FiO2 08/13/24 18:04 113/68 08/13/24 16:00 69 08/13/24 16:00 16 94 Room Air* 0 21 08/13/24 16:00 98.1 98.1 Total Intake and Output 08/12/24 08/12/24 08/13/24 15:00 23:00 07:00 Intake Total 1081.55 ml 1405.00 ml 1486.25 ml Output Total 1125 ml 2100 ml Balance 1081.55 ml 280.00 ml -613.75 ml medications Current Medications Medications Dose Ordered Sig/Pete Route Start Time Stop Time Status Last Admin Dose Admin Nitroglycerin 0.4 mg Q5MINP PRN SL 08/03/24 16:15 Morphine Sulfate 2 mg Q30M PRN IV 08/03/24 16:15 Ondansetron HCl 4 mg Q4HPRN PRN IV 08/03/24 16:15 08/11/24 16:35 4 MG Morphine Sulfate 2 mg Q4HPRN PRN IV 08/03/24 16:15 08/12/24 23:53 2 MG Pantoprazole Sodium 40 mg DAILY IV 08/04/24 10:00 08/13/24 09:13 40 MG Furosemide 20 mg BIDD IV 08/03/24 18:00 08/13/24 18:03 20 MG Norepinephrine Bitartrate 250 ml @ 3.75 mls/hr Q24H IV 08/04/24 19:00 08/13/24 18:04 11.25 MLS/HR Enoxaparin Sodium 30 mg DAILY SC 08/07/24 10:00 08/13/24 09:13 30 MG Piperacillin Sod/ Tazobactam Sod 100 ml @ 25 mls/hr Q8HR IV 08/09/24 22:00 08/13/24 13:16 25 MLS/HR Nicotine 1 patch DAILY TD 08/11/24 12:30 08/13/24 13:12 1 PATCH Midodrine 10 mg TID@0600,1200,1800 PO 08/11/24 18:00 08/13/24 18:03 10 MG Acetaminophen/ Codeine Phosphate 2 tab Q6HP PRN PO 08/13/24 11:45 08/13/24 18:04 2 TAB Lactulose 30 ml BIDPRN PRN PO 08/13/24 14:30 objective Gen.: Patient lying in bed in no apparent distress. On room air. Head: Normocephalic, atraumatic. Eyes: EOMI/PERRLA. Ears: Normal hearing. Normal anatomy. Neck/trachea: Trachea midline, supple. Nose: Normal external anatomy. Mouth: Moist mucous membranes. Chest: Decreased air entry bilaterally. No wheezing or rhonchi. Cardiovascular: Positive S1, positive S2. Regular rate and rhythm. Abdomen: Positive bowel sounds in all 4 quadrants. Soft, non-tender, non- distended. : Deferred. Rectal: Deferred. Skin: Warm, dry. Intact. Extremities: 2+ radial pulses bilaterally. No lower extremity edema. Neuro: Awake, alert, oriented x3. No gross motor or sensory deficits. Cranial nerves II through XII intact. Gait not assessed. laboratory and microbiology Laboratory Tests 08/13/24 04:39 Test 08/13/24 04:39 Range/Units Serum Glucose 138 H 74-106 mg/dL Assessment/Plan Impression: Acute hypoxic respiratory failure Acute hepatic encephalopathy ALOC Aspiration pneumonitis Abdominal loculated ascites Events: Remains on room air. No respiratory distress. On pressors for hemodynamic support Levophed 6 mcg/min Titrate to keep mean arterial pressure greater than 65 mmHg. Patient is out of bed to chair. On midodrine IV fluids w/ half NS at 100 ml/hr. Remains on pressors. BP labile. Taper pressors down as tolerated. Continue antibiotics - Zosyn Nicotine patch. Remove Tucker Diurese w/ Lasix as tolerated Monitor renal function Monitor electrolytes. Supplement as necessary. HOB elevation Aspiration precautions. GI prophylaxis w/ Protonix Improving mentation. Labs and imaging reviewed. Rest of plan as noted below. Plan: s/p extubation on 08/09/24 Supplemental O2 PRN Titrate to keep O2 sats above 92%. Off sedation Improved ammonia level. On pressors for hemodynamic support Titrate to keep mean arterial pressure greater than 65 mmHg. Limited chest ultrasound shows trace right pleural effusion not amenable for thora. Limited abdominal ultrasound shows loculated LLQ ascites. IR consulted for paracentesis. Antibiotics. Monitor renal function Monitor electrolytes. Supplement as necessary. Monitor ins and outs. Maintain euvolemia. GI prophylaxis. DVT prophylaxis. Prognosis: Poor given patient's multiple co-morbidities. Condition: Critical Rest of plan per hospitalist and other consultants. A total of 35 minutes of critical care time was spent reviewing the patient record, examining the patient, making a diagnostic and therapeutic plan, discussing this plan with the medical personnel, following up on diagnostic studies and following the patient for clinical stability excluding any and all procedures. At least 50% of this time was spent in direct, [id number] contact. Thank you Dr. Skyler Reynoso MD, for allowing me to participate in this patient's care. Further recommendations will depend on the patient's clinical course. Please do not hesitate to contact me if you have any questions or concerns. This medical document was created using an electronic medical record system with [employer] dictation system. Although these documentations are being carefully reviewed, there may still be some phonetic and typographical changes. The errors are purely typographical, due to imperfection on the software program, and do not reflect any compromise in the patient's medical care. Dietary Evaluation Review Comments: 1) If GI is accessible consider Glucerna 1.2 @ 70 ml/hr goal rate as tolerated 2) If pt remains NPO for >7 days consider TPN to meet at least 75% of estimated needs 3) Advance pt diet when medically feasible to a Renal Specific K2,low phos,2gmNa,70gPro diet modified per EMBOSSING PRESS OPERATOR MOLDED GOODS recommendations 4) Continue current plan of care Expected Outcomes/Goals: 1) Pt to receive nutrition support within 7 days of NPO status 2) Pt diet to advance 3) F/U in 2-3 days Plan discussed with: Other (RAUDEL Wolf) MARA DEVINE MD Aug 13, 2024 20:41
[2024-08-14] VITALS (80 sets, daily range): BP systolic 77–108; BP diastolic 36–64; PULSE 55–132; RESP 12–27; TEMP 98.1–98.8; O2SAT 65–99
[2024-08-14 05:21] LABS: Basophils # (auto) 0.2 10 ^3/uL (0-0.2); Basophils % (auto) 2.1 % (0.0-2.0); Hematocrit 26.7 % (41.0-53.0); Lymphocytes # (auto) 0.9 10 ^3/uL (0.4-5.4); Lymphocytes % (auto) 11.9 % (10.0-50.0); Mean Corpuscular Hemoglobin 29.5 pg (28.0-32.0); Mean Corpuscular Hgb Conc. 33.7 g/dL (32.0-36.0); Mean Corpuscular Volume 87.4 fL (80.0-100.0); Monocytes # (auto) 1.1 10 ^3/uL (0-1.3); Monocytes % (auto) 15.8 % (0.0-12.0); Neutrophils # (auto) 4.1 10 ^3/uL (1.6-8.6); Neutrophils % (auto) 56.2 % (37.0-80.0); Platelet Count (auto) 199 10^3/uL (140-450); Red Blood Cells 3.05 10^6/uL (4.5-5.90); Red Cell Distribution Width 15.3 % (11.8-14.3); White Blood Cell 7.2 10^3/uL (4.4-10.8)
[2024-08-14 05:41] LABS: Anion Gap 7 (5-15); Aspartate Aminotransferase 19 U/L (13-40); BUN/Creatinine Ratio 9.8 (10.0-20.0); Blood Urea Nitrogen 17 mg/dL (9-23); Carbon Dioxide 27 mmol/L (20-31); Chloride 104 mmol/L (98-107); Glucose 105 mg/dL (74-106); Sodium 138 mmol/L (136-145)
[2024-08-14 05:53] LABS: Alanine Aminotransferase < 9 U/L (7-40); Albumin 2.7 g/dL (3.2-4.8); Alkaline Phosphatase 319 U/L (46-116); Bilirubin, Total 1.4 mg/dL (0.2-1.0); Calcium 8.6 mg/dL (8.7-10.4); Potassium 3.3 mmol/L (3.5-5.1); Total Protein 5.6 g/dL (5.7-8.2)
--- NOTE | 2024-08-14 15:29 | DVHPN2 ---
Subjective Overnight events noted. Patient is currently off of Levophed. Patient has stated that even when his blood pressure is in 80s he is asymptomatic. Physical therapy evaluation and downgraded to telemetry. Reviewed: Care Plan Changes from previous H/P or p: No Changes Objective Vitals Vital Signs Date Time Temp Pulse Resp B/P (MAP) Pulse Ox O2 Delivery O2 Flow Rate FiO2 08/14/24 14:08 100/61 08/14/24 14:00 98 08/14/24 14:00 16 92 Room Air* 0 21 08/14/24 08:00 98.7 98.7 Intake/Output Intake and Output 08/14/24 06:59 Intake Total 1946.25 ml Output Total 500 ml Balance 1446.25 ml Intake Oral 600 ml IV Total 1346.25 ml Output Urine Total 500 ml # Voids 2 # Bowel Movements 5 Exam HEENT pupils are reactive Neck is supple CV is S1-S2 regular rate and rhythm Respiratory are clear GI positive bowel sounds positive besides Extremity trace edema 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 Medications Current Medications Medications Dose Ordered Sig/Pete Route Start Time Stop Time Status Last Admin Dose Admin Nitroglycerin 0.4 mg Q5MINP PRN SL 08/03/24 16:15 Morphine Sulfate 2 mg Q30M PRN IV 08/03/24 16:15 Ondansetron HCl 4 mg Q4HPRN PRN IV 08/03/24 16:15 08/11/24 16:35 4 MG Morphine Sulfate 2 mg Q4HPRN PRN IV 08/03/24 16:15 08/14/24 03:42 2 MG Pantoprazole Sodium 40 mg DAILY IV 08/04/24 10:00 08/14/24 09:21 40 MG Furosemide 20 mg BIDD IV 08/03/24 18:00 08/14/24 05:55 20 MG Norepinephrine Bitartrate 250 ml @ 3.75 mls/hr Q24H IV 08/04/24 19:00 08/13/24 18:04 11.25 MLS/HR Enoxaparin Sodium 30 mg DAILY SC 08/07/24 10:00 08/14/24 09:21 30 MG Piperacillin Sod/ Tazobactam Sod 100 ml @ 25 mls/hr Q8HR IV 08/09/24 22:00 08/14/24 13:51 25 MLS/HR Nicotine 1 patch DAILY TD 08/11/24 12:30 08/13/24 13:12 1 PATCH Midodrine 10 mg TID@0600,1200,1800 PO 08/11/24 18:00 08/14/24 13:51 10 MG Acetaminophen/ Codeine Phosphate 2 tab Q6HP PRN PO 08/13/24 11:45 08/14/24 09:20 2 TAB Lactulose 30 ml BIDPRN PRN PO 08/13/24 14:30 Laboratory Results Laboratory Tests 08/14/24 04:49 Chemistry Test 08/14/24 04:49 Albumin 2.7 g/dL (3.2-4.8) L Calcium Level 8.6 mg/dL (8.7-10.4) L Total Protein 5.6 g/dL (5.7-8.2) L LFT Test 08/14/24 04:49 Alanine Aminotransferase (ALT) < 9 U/L (7-40) Alkaline Phosphatase 319 U/L (46-116) H Aspartate Amino Transferase (AST) 19 U/L (13-40) Total Bilirubin 1.4 mg/dL (0.2-1.0) H Urinalysis Test 08/03/24 12:00 Urine Color Light-yellow (Yellow) Urine Clarity Clear (Clear) Urine pH 7.5 (5.0-9.0) Urine Specific [place] 1.015 (1.001-1.035) Urine Protein Negative (Negative) Urine Ketones Negative (Negative) Urine Blood Negative /uL (Negative) Urine Nitrite Negative (Negative) Urine Bilirubin Negative (Negative) Urine Urobilinogen 2 mg/dL (Negative) H Urine Leukocyte Esterase Negative /uL (Negative) Urine RBC 1 /hpf (0 - 3) Urine WBC 3 /hpf (0 - 3) Urine Squamous Epithelial Cells None seen /hpf (<5) Urine Bacteria None seen /hpf (None Seen) Urine Glucose Normal mg/dL (Normal) Microbiology Microbiology Date/Time Source Procedure Growth Status 08/04/24 03:44 Nose MRSA Screen - Final Complete 08/03/24 11:54 Sputum Gram Stain - Final Complete 08/03/24 11:54 Sputum Respiratory Culture - Final Complete Assessment/Plan Assessment/Plan 48-year-old male with a known history of advanced liver cirrhosis, recurrent ascites with a previous history of paracentesis, presented to the hospital with altered mental status eventually found to be in respiratory failure requiring intubation. 1. Acute hypoxic respiratory failure secondary to hepatic encephalopathy status post intubation, status post [id number] 2. Acute metabolic/hepatic encephalopathy currently improved 3. Advanced liver cirrhosis 4. Loculated ascites 5. Acute kidney injury suspected secondary to vasomotor nephropathy 6 hypernatremia currently on D5W 7. Hypotension -downgraded to telemetry., continue midodrine 10 mg p.o. t.i.d. -physical therapy evaluation and treatment. Plan discussed with: Patient Date of Service: Aug 14, 2024 Billing Provider: SKY LESLIE MD Common Visit Codes: NOT BILLABLE SKY LESLIE MD Aug 14, 2024 15:29
[2024-08-14] MEDS: POTASSIUM EFFERVESENT TAB 25 MEQ PO ONE (16:37)
--- NOTE | 2024-08-14 21:27 | DVHPN2 ---
Progress Note Date Seen: Aug 14, 2024 Medical Necessity Reason Pt with a Central, PICC or Fol: No The following are medically ne: Tucker Catheter Reason for tucker catheter: Strict I&O Subjective Patient reports: No new complaints Review of Systems: HEENT:Abnormal, CVS:Normal, RESPIRATORY:Normal, GI:Normal, :Normal, MSK:Normal, NEURO:Normal Objective vital signs Vital Sign Date Time Temp Pulse Resp B/P (MAP) Pulse Ox O2 Delivery O2 Flow Rate FiO2 08/14/24 20:00 74 19 96 Room Air* 0 21 08/14/24 19:00 89/49 (62) 08/14/24 16:00 98.8 98.8 Total Intake and Output 08/13/24 08/13/24 08/14/24 15:00 23:00 07:00 Intake Total 906.25 ml 153.75 ml 815.00 ml Output Total 500 ml Balance 906.25 ml 153.75 ml 315.00 ml medications Current Medications Medications Dose Ordered Sig/Pete Route Start Time Stop Time Status Last Admin Dose Admin Nitroglycerin 0.4 mg Q5MINP PRN SL 08/03/24 16:15 Morphine Sulfate 2 mg Q30M PRN IV 08/03/24 16:15 Ondansetron HCl 4 mg Q4HPRN PRN IV 08/03/24 16:15 08/11/24 16:35 4 MG Morphine Sulfate 2 mg Q4HPRN PRN IV 08/03/24 16:15 08/14/24 03:42 2 MG Pantoprazole Sodium 40 mg DAILY IV 08/04/24 10:00 08/14/24 09:21 40 MG Norepinephrine Bitartrate 250 ml @ 3.75 mls/hr Q24H IV 08/04/24 19:00 08/13/24 18:04 11.25 MLS/HR Enoxaparin Sodium 30 mg DAILY SC 08/07/24 10:00 08/14/24 09:21 30 MG Piperacillin Sod/ Tazobactam Sod 100 ml @ 25 mls/hr Q8HR IV 08/09/24 22:00 08/14/24 13:51 25 MLS/HR Nicotine 1 patch DAILY TD 08/11/24 12:30 08/14/24 16:37 1 PATCH Midodrine 10 mg TID@0600,1200,1800 PO 08/11/24 18:00 08/14/24 18:46 10 MG Acetaminophen/ Codeine Phosphate 2 tab Q6HP PRN PO 08/13/24 11:45 08/14/24 18:46 2 TAB Lactulose 30 ml BIDPRN PRN PO 08/13/24 14:30 Examination: GENERAL:Normal, HEENT:Abnormal, NECK:Normal, LUNGS:Normal, CVS:Normal, ABDOMEN:Normal, MSK:Normal, SKIN:Normal, NEURO:Normal, :Normal laboratory and microbiology Laboratory Tests 08/14/24 04:49 Test 08/14/24 04:49 Range/Units Serum Glucose 105 74-106 mg/dL Microbiology Date/Time Source Procedure Growth Status 08/04/24 03:44 Nose MRSA Screen - Final Complete 08/03/24 11:54 Sputum Gram Stain - Final Complete 08/03/24 11:54 Sputum Respiratory Culture - Final Complete Problem List/Assessment/Plan Problem List/Assessment/Plan Acute kidney injury hemodynamically mediated Chronic kidney disease stage IIIB Acute respiratory failure resolved Hepatic encephalopathy with elevated ammonia Ascites Setting of cirrhosis Anemia hypernatremia recs dc lasix his map has been low in 40 s ,, off vasopressors per hospitalist/store operations specialist on midodrine ,,iv albumin renal function stable Plan discussed with: Patient My Orders My Orders Orders - COMFORT BANGURA MD Procedure Category Date Status Time Albumin Ivpb PHA 08/14/24 Transmitted 21:30 Dietary Evaluation Review Comments: 1) If GI is accessible consider Glucerna 1.2 @ 70 ml/hr goal rate as tolerated 2) If pt remains NPO for >7 days consider TPN to meet at least 75% of estimated needs 3) Advance pt diet when medically feasible to a Renal Specific K2,low phos,2gmNa,70gPro diet modified per CHILD PROTECTION SPECIALIST recommendations 4) Continue current plan of care Expected Outcomes/Goals: 1) Pt to receive nutrition support within 7 days of NPO status 2) Pt diet to advance 3) F/U in 2-3 days COFMORT BANGURA MD Aug 14, 2024 21:27
--- NOTE | 2024-08-14 21:42 | DVHPN2 ---
Progress Note - Dictate Date Seen: Aug 14, 2024 Medical Necessity Reason Pt with a Central, PICC or Fol: Yes The following are medically ne: Tucker Catheter Reason for tucker catheter: Strict I&O Subjective Patient seen and examined at bedside. Breathing on room air. Overnight events reviewed. vital signs Vital Sign Date Time Temp Pulse Resp B/P (MAP) Pulse Ox O2 Delivery O2 Flow Rate FiO2 08/14/24 20:00 74 19 96 Room Air* 0 21 08/14/24 19:00 89/49 (62) 08/14/24 16:00 98.8 98.8 Total Intake and Output 08/13/24 08/13/24 08/14/24 15:00 23:00 07:00 Intake Total 906.25 ml 153.75 ml 815.00 ml Output Total 500 ml Balance 906.25 ml 153.75 ml 315.00 ml medications Current Medications Medications Dose Ordered Sig/Pete Route Start Time Stop Time Status Last Admin Dose Admin Nitroglycerin 0.4 mg Q5MINP PRN SL 08/03/24 16:15 Morphine Sulfate 2 mg Q30M PRN IV 08/03/24 16:15 Ondansetron HCl 4 mg Q4HPRN PRN IV 08/03/24 16:15 08/11/24 16:35 4 MG Morphine Sulfate 2 mg Q4HPRN PRN IV 08/03/24 16:15 08/14/24 03:42 2 MG Pantoprazole Sodium 40 mg DAILY IV 08/04/24 10:00 08/14/24 09:21 40 MG Norepinephrine Bitartrate 250 ml @ 3.75 mls/hr Q24H IV 08/04/24 19:00 08/13/24 18:04 11.25 MLS/HR Enoxaparin Sodium 30 mg DAILY SC 08/07/24 10:00 08/14/24 09:21 30 MG Piperacillin Sod/ Tazobactam Sod 100 ml @ 25 mls/hr Q8HR IV 08/09/24 22:00 08/14/24 13:51 25 MLS/HR Nicotine 1 patch DAILY TD 08/11/24 12:30 08/14/24 16:37 1 PATCH Midodrine 10 mg TID@0600,1200,1800 PO 08/11/24 18:00 08/14/24 18:46 10 MG Acetaminophen/ Codeine Phosphate 2 tab Q6HP PRN PO 08/13/24 11:45 08/14/24 18:46 2 TAB Lactulose 30 ml BIDPRN PRN PO 08/13/24 14:30 Albumin Human 100 ml @ 100 mls/hr Q8H IV 08/14/24 21:30 08/15/24 14:29 UNV objective Gen.: Patient lying in bed in no apparent distress. On room air. Head: Normocephalic, atraumatic. Eyes: EOMI/PERRLA. Ears: Normal hearing. Normal anatomy. Neck/trachea: Trachea midline, supple. Nose: Normal external anatomy. Mouth: Moist mucous membranes. Chest: Decreased air entry bilaterally. No wheezing or rhonchi. Cardiovascular: Positive S1, positive S2. Regular rate and rhythm. Abdomen: Positive bowel sounds in all 4 quadrants. Soft, non-tender, non- distended. : Deferred. Rectal: Deferred. Skin: Warm, dry. Intact. Extremities: 2+ radial pulses bilaterally. No lower extremity edema. Neuro: Awake, alert, oriented x3. No gross motor or sensory deficits. Cranial nerves II through XII intact. Gait not assessed. laboratory and microbiology Laboratory Tests 08/14/24 04:49 Test 08/14/24 04:49 Range/Units Serum Glucose 105 74-106 mg/dL Assessment/Plan Impression: Acute hypoxic respiratory failure Acute hepatic encephalopathy ALOC Aspiration pneumonitis Abdominal loculated ascites Events: Remains on room air. No respiratory distress. On pressors for hemodynamic support Levophed 6 mcg/min Titrate to keep mean arterial pressure greater than 65 mmHg. Improved pressor requirements. Continue midodrine Off IV fluids. Remains on pressors. BP labile. Taper pressors down as tolerated. Keep SBP >80 mmHg Patient states his BP runs in low 80s. Continue antibiotics - Zosyn Nicotine patch. HOB elevation Aspiration precautions. GI prophylaxis w/ Protonix Improving mentation. Labs and imaging reviewed. Rest of plan as noted below. Plan: s/p extubation on 08/09/24 Supplemental O2 PRN Titrate to keep O2 sats above 92%. Off sedation Improved ammonia level. On pressors for hemodynamic support Titrate to keep mean arterial pressure greater than 65 mmHg. Limited chest ultrasound shows trace right pleural effusion not amenable for thora. Limited abdominal ultrasound shows loculated LLQ ascites. IR consulted for paracentesis. Antibiotics. Monitor renal function Monitor electrolytes. Supplement as necessary. Monitor ins and outs. Maintain euvolemia. GI prophylaxis. DVT prophylaxis. Prognosis: Poor given patient's multiple co-morbidities. Condition: Critical Rest of plan per hospitalist and other consultants. A total of 35 minutes of critical care time was spent reviewing the patient record, examining the patient, making a diagnostic and therapeutic plan, discussing this plan with the medical personnel, following up on diagnostic studies and following the patient for clinical stability excluding any and all procedures. At least 50% of this time was spent in direct, [id number] contact. Thank you Dr. Skyler Reynoso MD, for allowing me to participate in this patient's care. Further recommendations will depend on the patient's clinical course. Please do not hesitate to contact me if you have any questions or concerns. This medical document was created using an electronic medical record system with [employer] dictation system. Although these documentations are being carefully reviewed, there may still be some phonetic and typographical changes. The errors are purely typographical, due to imperfection on the software program, and do not reflect any compromise in the patient's medical care. Dietary Evaluation Review Comments: 1) If GI is accessible consider Glucerna 1.2 @ 70 ml/hr goal rate as tolerated 2) If pt remains NPO for >7 days consider TPN to meet at least 75% of estimated needs 3) Advance pt diet when medically feasible to a Renal Specific K2,low phos,2gmNa,70gPro diet modified per PC INSTALLATION ENGINEER recommendations 4) Continue current plan of care Expected Outcomes/Goals: 1) Pt to receive nutrition support within 7 days of NPO status 2) Pt diet to advance 3) F/U in 2-3 days Plan discussed with: Other (RAUDEL Wolf) Critical Care Time(min): 35 MARA DEVINE MD Aug 14, 2024 21:42
[2024-08-14] MEDS: ALBUMIN 25% 100 ML IV SCH (23:58)
[2024-08-15] VITALS (13 sets, daily range): BP systolic 83–100; BP diastolic 41–60; PULSE 58–77; RESP 10–21; TEMP 99; O2SAT 90–99
--- NOTE | 2024-08-15 22:39 | DVHPN2 ---
Progress Note - Dictate Date Seen: Aug 15, 2024 Medical Necessity Reason Pt with a Central, PICC or Fol: No The following are medically ne: Tucker Catheter Reason for tucker catheter: Strict I&O Subjective Patient seen and examined at bedside. Breathing on room air. Overnight events reviewed. vital signs Vital Sign Date Time Temp Pulse Resp B/P (MAP) Pulse Ox O2 Delivery O2 Flow Rate FiO2 08/15/24 08:30 67 15 93/49 (64) 98 08/15/24 08:00 Room Air* 0 21 08/15/24 08:00 99.0 99.0 Total Intake and Output 08/14/24 08/14/24 08/15/24 15:00 23:00 07:00 Intake Total 116.25 ml 875 ml 1000 ml Output Total 400 ml 400 ml Balance 116.25 ml 475 ml 600 ml objective Gen.: Patient lying in bed in no apparent distress. On room air. Head: Normocephalic, atraumatic. Eyes: EOMI/PERRLA. Ears: Normal hearing. Normal anatomy. Neck/trachea: Trachea midline, supple. Nose: Normal external anatomy. Mouth: Moist mucous membranes. Chest: Decreased air entry bilaterally. No wheezing or rhonchi. Cardiovascular: Positive S1, positive S2. Regular rate and rhythm. Abdomen: Positive bowel sounds in all 4 quadrants. Soft, non-tender, non- distended. : Deferred. Rectal: Deferred. Skin: Warm, dry. Intact. Extremities: 2+ radial pulses bilaterally. No lower extremity edema. Neuro: Awake, alert, oriented x3. No gross motor or sensory deficits. Cranial nerves II through XII intact. Gait not assessed. laboratory and microbiology Laboratory Tests 08/14/24 04:49 Test 08/14/24 04:49 Range/Units Serum Glucose 105 74-106 mg/dL Assessment/Plan Impression: Acute hypoxic respiratory failure Acute hepatic encephalopathy ALOC Aspiration pneumonitis Abdominal loculated ascites Events: Remains on room air. No respiratory distress. Off Levophed since 11 AM, hemodynamically stable. Blood pressure is stable. PT evaluation this AM. Continue antibiotics - Zosyn HOB elevation Aspiration precautions. Note, patient left against medical advice. He was made aware of risks and benefits of doing so. Labs and imaging reviewed. Rest of plan as noted below. Plan: s/p extubation on 08/09/24 Supplemental O2 PRN Titrate to keep O2 sats above 92%. Off sedation Improved ammonia level. Off pressors, hemodynamically stable. Limited chest ultrasound shows trace right pleural effusion not amenable for thora. Limited abdominal ultrasound shows loculated LLQ ascites. IR consulted for paracentesis. Antibiotics. Monitor renal function Monitor electrolytes. Supplement as necessary. Monitor ins and outs. Maintain euvolemia. GI prophylaxis. DVT prophylaxis. Prognosis: Poor given patient's multiple co-morbidities. Condition: Critical Rest of plan per hospitalist and other consultants. A total of 35 minutes of critical care time was spent reviewing the patient record, examining the patient, making a diagnostic and therapeutic plan, discussing this plan with the medical personnel, following up on diagnostic studies and following the patient for clinical stability excluding any and all procedures. At least 50% of this time was spent in direct, [id number] contact. Thank you Dr. Skyler Reynoso MD, for allowing me to participate in this patient's care. Further recommendations will depend on the patient's clinical course. Please do not hesitate to contact me if you have any questions or concerns. This medical document was created using an electronic medical record system with [employer] dictation system. Although these documentations are being carefully reviewed, there may still be some phonetic and typographical changes. The errors are purely typographical, due to imperfection on the software program, and do not reflect any compromise in the patient's medical care. Dietary Evaluation Review Comments: 1) If GI is accessible consider Glucerna 1.2 @ 70 ml/hr goal rate as tolerated 2) If pt remains NPO for >7 days consider TPN to meet at least 75% of estimated needs 3) Advance pt diet when medically feasible to a Renal Specific K2,low phos,2gmNa,70gPro diet modified per LAND ACQUISITION ANALYST recommendations 4) Continue current plan of care Expected Outcomes/Goals: 1) Pt to receive nutrition support within 7 days of NPO status 2) Pt diet to advance 3) F/U in 2-3 days Plan discussed with: Other (RAUDEL Wolf) Critical Care Time(min): 35 MARA DEVINE MD Aug 15, 2024 22:39
--- NOTE | 2024-08-16 17:11 | DVHDS2 ---
Discharge Summary Date of Admission Aug 03, 2024 at 16:06 Date of Discharge: Aug 15, 2024 Labs/Diagnostic Data: Laboratory Results Test 08/14/24 04:49 08/12/24 05:16 08/09/24 10:38 08/09/24 03:00 White Blood Count 7.2 10^3/uL (4.4-10.8) Red Blood Count 3.05 10^6/uL (4.5-5.90) Hemoglobin 9.0 g/dL (13.5-17.5) Hematocrit 26.7 % (41.0-53.0) Mean Corpuscular Volume 87.4 fL (80.0-100.0) Mean Corpuscular Hemoglobin 29.5 pg (28.0-32.0) Mean Corpuscular Hemoglobin Concent 33.7 g/dL (32.0-36.0) Red Cell Distribution Width 15.3 % (11.8-14.3) Platelet Count 199 10^3/uL (140-450) Mean Platelet Volume 8.6 fL (6.9-10.8) Neutrophils (%) (Auto) 56.2 % (37.0-80.0) Lymphocytes (%) (Auto) 11.9 % (10.0-50.0) Monocytes (%) (Auto) 15.8 % (0.0-12.0) Eosinophils (%) (Auto) 14.0 % (0.0-7.0) Basophils (%) (Auto) 2.1 % (0.0-2.0) Neutrophils # (Auto) 4.1 10 ^3/uL (1.6-8.6) Lymphocytes # (Auto) 0.9 10 ^3/uL (0.4-5.4) Monocytes # (Auto) 1.1 10 ^3/uL (0-1.3) Eosinophils # (Auto) 1.0 10 ^3/uL (0-0.8) Basophils # (Auto) 0.2 10 ^3/uL (0-0.2) Nucleated Red Blood Cells 0.0 % Sodium Level 138 mmol/L (136-145) Potassium Level 3.3 mmol/L (3.5-5.1) Chloride Level 104 mmol/L (98-107) Carbon Dioxide Level 27 mmol/L (20-31) Anion Gap 7 (5-15) Blood Urea Nitrogen 17 mg/dL (9-23) Creatinine 1.73 mg/dL (0.700-1.30) Glomerular Filtration Rate Calc 48 mL/min (>90) BUN/Creatinine Ratio 9.8 (10.0-20.0) Serum Glucose 105 mg/dL (74-106) Calcium Level 8.6 mg/dL (8.7-10.4) Total Bilirubin 1.4 mg/dL (0.2-1.0) Aspartate Amino Transferase (AST) 19 U/L (13-40) Alanine Aminotransferase (ALT) < 9 U/L (7-40) Alkaline Phosphatase 319 U/L (46-116) Total Protein 5.6 g/dL (5.7-8.2) Albumin 2.7 g/dL (3.2-4.8) Ammonia 25 umol/L (11-32) Blood Gas Specimen Type Arterial Blood Gas Sample Site Left radial Blood Gas Patient Temperature 37.0 Arterial Blood Date Drawn [id number] Arterial Blood pH 7.407 (7.350-7.450) Arterial Blood Partial Pressure CO2 42.0 mmHg (35.0-48.0) Arterial Blood Partial Pressure O2 87.7 mmHg (83.0-108.0) Arterial Blood HCO3 25.8 mmol/L (21.0-28.0) Arterial Blood Oxygen Saturation 96.1 % (94.0-98.0) Arterial Blood Base Excess 1.0 mmol/L (-2.0-3.0) Arterial Blood Oxyhemoglobin 95.4 % (94.0-98.0) Arterial Blood Carboxyhemoglobin 0.4 % (0.5-1.5) Arterial Blood Methemoglobin 0.3 % (0.0-1.5) Kevin Test Modified Blood Gas Total Hemoglobin 10.20 g/dL (13.5-17.5) Blood Gas Modality Vent - cpap Blood Gas Spontaneous Rate 15 FiO2 % 30.0 Blood Gas Spontaneous Tidal Volume 550 Blood Gas Pressure Support 8 Blood Gas PEEP or CPAP 5.0 Magnesium Level 2.0 mg/dL (1.6-2.6) Test 08/08/24 06:55 08/08/24 03:45 08/07/24 03:49 08/06/24 03:27 Blood Gas Set Respiration Rate 14.0 Blood Gas Tidal Volume 500.0 Differential Total Cells Counted 100.0 (100) Neutrophils % (Manual) 58 (37.0-80.0) Band Neutrophils % (Manual) 1 Lymphocytes % (Manual) 9 (10.0-50.0) Monocytes % (Manual) 12 (0-12) Eosinophils % (Manual) 20 (0-7) Basophils % (Manual) 0 (0.0-2.0) Metamyelocytes % (manual) 0 Myelocytes % (Manual) 0 Promyelocytes % (Manual) 0 Blast Cells % (Manual) 0 Reactive Lymphocytes 0 Platelet Estimate Adequate Phosphorus Level 3.2 mg/dL (2.4-5.1) Anisocytosis (manual) Slight Prothrombin Time 12.8 sec (9.3-11.8) Prothrombin Time INR 1.23 (0.9-1.15) Activated Partial Thromboplast Time 32.5 SEC (24.5-34.5) Test 08/03/24 13:39 08/03/24 12:00 08/03/24 11:22 Influenza Type A Antigen Negative (Negative) Influenza Type B Antigen Negative (Negative) SARS-CoV-2 Antigen (Rapid) Negative (NEGATIVE) Urine Color Light-yellow (Yellow) Urine Clarity Clear (Clear) Urine pH 7.5 (5.0-9.0) Urine Specific [place] 1.015 (1.001-1.035) Urine Protein Negative (Negative) Urine Ketones Negative (Negative) Urine Blood Negative /uL (Negative) Urine Nitrite Negative (Negative) Urine Bilirubin Negative (Negative) Urine Urobilinogen 2 mg/dL (Negative) Urine Leukocyte Esterase Negative /uL (Negative) Urine RBC 1 /hpf (0 - 3) Urine WBC 3 /hpf (0 - 3) Urine Squamous Epithelial Cells None seen /hpf (<5) Urine Bacteria None seen /hpf (None Seen) Urine Glucose Normal mg/dL (Normal) Urine Opiates Screen Neg (NEGATIVE) Urine Fentanyl Screen Neg (NEGATIVE) Urine Barbiturates Screen Neg (NEGATIVE) Urine Phencyclidine Screen Neg (NEGATIVE) Urine Amphetamines Screen Neg (NEGATIVE) Urine Benzodiazepines Screen Neg (NEGATIVE) Urine Cocaine Screen Neg (NEGATIVE) Urine Cannabinoids Screen Neg (NEGATIVE) Lactic Acid Level 1.5 mmol/L (0.4-2.0) Troponin I High Sensitivity 3 ng/L (</=54) B-Type Natriuretic Peptide 51.01 pg/mL (0-100) Lipase 32 U/L (12-53) Plasma/Serum Blood Alcohol < 3.0 mg/dL (<10) Other Laboratory Tests 08/14/24 04:49 Brief Hx & Hospital Course: 48-year-old male with a known history of advanced liver cirrhosis, recurrent ascites with a previous history of paracentesis, presented to the hospital with altered mental status eventually found to be in respiratory failure requiring intubation. Number kept in ICU eventually extubated. Patient was had a acute hepatic metabolic encephalopathy which was resolved after giving lactulose. Patient was hospital course was eventful for requirement of vasopressor because of hypotension. Patient was hypernatremia was treated with a D5W and and for hypotension, midodrine was added. Patient was left against medical advice. Condition at Discharge: Undetermined Final Diagnosis/Problems List 48-year-old male with a known history of advanced liver cirrhosis, recurrent ascites with a previous history of paracentesis, presented to the hospital with altered mental status eventually found to be in respiratory failure requiring intubation. 1. Acute hypoxic respiratory failure secondary to hepatic encephalopathy status post intubation, status post [id number] 2. Acute metabolic/hepatic encephalopathy currently improved 3. Advanced liver cirrhosis 4. Loculated ascites 5. Acute kidney injury suspected secondary to vasomotor nephropathy 6 hypernatremia currently on D5W 7. Hypotension Discharge Disposition: AMA Discharge Statement: "Patient was advised to return to the ER or call 911 if any headaches, dizziness, shortness of breath, chest pain, abdominal pain, bleeding, fevers, or worsening of medical condition. Patient was counseled about treatment plan, medications, possible side effects, patientverbalized understanding. All questions were answered to the best of my ability. This discharge took greater then 30 minutes in planning, reviewing documentation, counseling the patient, and discussing with other team members." ASSESSMENT ASSESSMENT Assessment Date of Service: Aug 15, 2024 Billing Provider: SKY LESLIE MD Common Visit Codes: NOT BILLABLE SKY LESLIE MD Aug 16, 2024 17:11
== END 2024-08-15 09:28 | disposition left against medical advice (07) | DRG 207 ==
LOC: EDBD 11:01 → ER 11:01 → EDUNIT# 11:01 → OVERFLOW 16:06 → ICU WEST 18:33 → ICU CENTRL 08-10 23:52
PROVIDERS: ADMIT Hospitalist; ATTEND Internal Medicine
PROC: 5A1955Z Respiratory Ventilation, Greater than 96 Consecutive Hours (ICD-10-PCS; principal; 2024-08-03)
PROC: 0BH17EZ Insertion of Endotracheal Airway into Trachea, Via Natural or Artificial Opening (ICD-10-PCS; 2024-08-03)
PROC: 02HV33Z Insertion of Infusion Device into Superior Vena Cava, Percutaneous Approach (ICD-10-PCS; 2024-08-07)
PROC: B548ZZA Ultrasonography of Superior Vena Cava, Guidance (ICD-10-PCS; 2024-08-07)
PROC: 03HY32Z Insertion of Monitoring Device into Upper Artery, Percutaneous Approach (ICD-10-PCS; 2024-08-07)
PROC: 5A09357 Assistance with Respiratory Ventilation, Less than 24 Consecutive Hours, Continuous Positive Airway Pressure (ICD-10-PCS; 2024-08-09)
DX: J96.01 Acute respiratory failure with hypoxia (principal); J69.0 Pneumonitis due to inhalation of food and vomit; N18.6 End stage renal disease; N17.0 Acute kidney failure with tubular necrosis; G92.8 Other toxic encephalopathy; R18.8 Other ascites; I12.0 Hypertensive chronic kidney disease with stage 5 chronic kidney disease or end stage renal disease; K76.6 Portal hypertension; E87.0 Hyperosmolality and hypernatremia; K76.82 Hepatic encephalopathy; Z53.29 Procedure and treatment not carried out because of patient's decision for other reasons; Z20.822 Contact with and (suspected) exposure to COVID-19; K74.60 Unspecified cirrhosis of liver; E11.22 Type 2 diabetes mellitus with diabetic chronic kidney disease; I48.91 Unspecified atrial fibrillation; D64.9 Anemia, unspecified; I95.9 Hypotension, unspecified; Z79.84 Long term (current) use of oral hypoglycemic drugs; Z86.73 Personal history of transient ischemic attack (TIA), and cerebral infarction without residual deficits; Z82.49 Family history of ischemic heart disease and other diseases of the circulatory system; Z82.5 Family history of asthma and other chronic lower respiratory diseases
CPT/HCPCS: 36415; 36600; 70450; 71045; 71250; 72125; 74176; 76705; 80048; 80053; 80307; 80320; 81001; 82140; 82805; 83605; 83690; 83735; 83880; 84100; 84132; 84484; 85007; 85025; 85027; 85610; 85730; 87070; 87081; 87205; 87426; 87804; 92610; 93005; 94002; 94003; 94640; 97163; 99291; G0378; J2405; J2470; J2543; J2704; J3480; J7042; J7060; P9047

== ENCOUNTER 2024-12-27 01:53 | Emergency (ER) | payer OTHER, MEDICAID ==
[~2024-12-27] VITALS: Ht 188 cm; Wt 104.5 kg
--- NOTE | 2024-12-27 02:22 | ED.PDOC ---
History of Present Illness HPI Comments 49 year old male presents to the ED via EMS with a chief complaint of seizure onset today. Patient states he was sitting down watching videos when he experienced seizure like activity. Patient can recall event. Last seizure was about 20 minutes ago, was taken off medication. PMHx DM, HTN, ESRD, seizures, thyroid. Denies chest pain, shortness of breath, nausea, vomiting, diarrhea, headache, dizziness, cough, congestion. No other symptoms or modifying factors present at this time. Chief Complaint: Seizure Time Seen by MD: 02:10 Primary Care Provider: UNKNOWN Reviewed Notes: Medications, Allergies Allergies: Coded Allergies: Butorphanol (Verified Allergy, Unknown, 04/03/15) Ketorolac (Verified Allergy, Unknown, 04/03/15) NSAIDs (Verified Allergy, Unknown, 04/03/15) Sumatriptan (Verified Allergy, Unknown, 04/03/15) Tromethamine (Verified Allergy, Unknown, 04/03/15) Uncoded Allergies: NUBANE (Allergy, Unknown, 04/03/15) Home Meds Active Scripts Zonisamide (Zonisamide) 50 Mg Cap, 50 MG PO DAILY for 60 Days, #60 CAP 5 Refills Prov:JESSICA SAMUEL MD 12/27/24 Zonisamide (Zonisamide) 50 Mg Cap, 50 MG PO DAILY for 60 Days, CAP 5 Refills Prov:JESSICA SAMUEL MD 12/27/24 Lactulose (Lactulose) 10 Gm/15 Ml Kim, 20 GM PO TID, #240 ML 2 Refills Prov:NUNO COLLADO MD 04/17/24 Furosemide (Furosemide) 40 Mg Tab, 40 MG PO DAILY, #30 TAB Prov:SKY LESLIE MD 10/23/23 Reported Medications Acetaminophen W/ Codeine (Tylenol W/Cod #3) 1 Tab Tb, 1 TAB PO, TAB 04/01/24 Propranolol HCl (Propranolol Hydrochloride) 10 Mg Tab, 10 MG PO TID, TAB 04/01/24 Omeprazole Magnesium (Omeprazole) 20 Mg Tab, 20 MG PO DAILY, TAB 03/08/24 Ondansetron Odt 4MG Tab (ZOFRAN PO) 4 Mg Tb, 4 MG PO TID, TAB ODT TAB-DISSOLVE IN MOUTH, THEN SWALLOW 03/08/24 Information Source: Patient, Emergency Med Personnel Mode of Arrival: EMS Severity: Moderate Timing: Hours Duration: Since onset Prehospital treatment: None Past Medical History PAST MEDICAL HISTORY: DM, ESRD, HTN, Liver, Seizures, TIA Surgical History: Denies all surgeries Family History Family History: Pt Confused Social History Smoker: Unknown Alcohol: Unknown Drugs: Unknown Lives In: Home Constitutional: denies: chills, diaphoresis, fatigue, fever, malaise, sweats, weakness, others EENTM: denies: blurred vision, double vision, ear bleeding, ear discharge, ear drainage, ear pain, ear ringing, eye pain, eye redness, hearing loss, mouth pain, mouth swelling, nasal discharge, nose bleeding, nose congestion, nose pain, photophobia, tearing, throat pain, throat swelling, voice changes, others Respiratory: denies: cough, hemoptysis, orthopnea, SOB at rest, shortness of breath, SOB with excertion, stridor, wheezing, others Cardiovascular: denies: chest pain, dizzy spells, diaphoresis, Dyspnea on ex ertion, edema, irregular heart beat, left arm pain, lightheadedness, palpitations, PND, syncope, others Gastrointestinal: denies: abdomen distended, abdominal pain, blood streaked bowels, constipated, diarrhea, dysphagia, difficulty swallowing, hematemesis, melena, nausea, poor appetite, poor fluid intake, rectal bleeding, rectal pain, vomiting, others Genitourinary: denies: burning, dysuria, flank pain, frequency, hematuria, incontinence, penile discharge, penile sore, pain, testicle pain, testicle swelling, urgency, others Neurological: reports: seizure; denies: dizziness, fainting, headache, left sided numbness, left sided weakness, numbness, paresthesia, pre-existing d eficit, right sided numbness, right sided weakness, speech problems, tingling, tremors, weakness, others Musculoskeletal: denies: back pain, gout, joint pain, joint swelling, muscle pain, muscle stiffness, neck pain, others Integumetry: denies: bruises, change in color, change in hair/nails, dryness, laceration, lesions, lumps, rash, wounds, others Allergic/Immunocompromised: denies: Difficulty Healing, Frequent Infections, Hives, Itching, others Hematologic/Lymphatic: denies: anemia, blood clots, easy bleeding, easy bruising, swollen glands, others Endocrine: denies: excessive hunger, excessive sweating, excessive thirst, excessive urination, flushing, intolerance to cold, intolerance to heat, unexplained weight gain, unexplained weight loss, others Psychiatric: denies: anxiety, bipolar disorder, depression, hopeless, panic disorder, schizophrenia, sleepless, suicidal, others All Other Systems: Reviewed and Negative Physical Exam General Appearance: No Apparent Distress, Normal HEENT: Normal ENT Inspection, Pharynx Normal, TMs Normal Neck: Full Range of Motion, Non-Tender, Normal, Normal Inspection Respiratory: Chest Non-Tender, Lungs Clear, No Accessory Muscle Use, No Respiratory Distress, Normal Breath Sounds Cardiovascular: No Edema, No JVD, No Murmur, No Gallop, Normal Peripheral Pulses, Regular Rate/Rhythm Breast Exam: Deferred Gastrointestinal: No Organomegaly, Non Tender, No Pulsatile Mass, Normal Bowel Sounds, Soft Genitalia: Deferred Pelvic: Deferred Rectal: Deferred Extremities: No calf tenderness, Normal capillary refill, Normal inspection, Normal range of motion, Non-tender, No pedal edema Musculoskeletal : Apperance: Normal 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 Was a procedure done?: No Differential Dx Considerations may include: Differential diagnosis includes but not limited to: Migraine, tension headache, intracranial hemorrhage, subarachnoid hemorrhage, cluster headache, meningitis and others X-Ray, Labs, Meds, VS Vital Signs Date Time Temp Pulse Resp B/P (MAP) Pulse Ox O2 Delivery O2 Flow Rate FiO2 12/27/24 02:23 98.9 101 19 111/70 (84) 99 98.9 12/27/24 01:59 98.0 100 24 122/77 (92) 98 98.0 Lab Test 12/27/24 02:20 Range/Units White Blood Count 5.9 4.4-10.8 10^3/uL Red Blood Count 3.29 L 4.5-5.90 10^6/uL Hemoglobin 10.0 L 13.5-17.5 g/dL Hematocrit 29.8 L 41.0-53.0 % Mean Corpuscular Volume 90.6 80.0-100.0 fL Mean Corpuscular Hemoglobin 30.5 28.0-32.0 pg Mean Corpuscular Hemoglobin Concent 33.7 32.0-36.0 g/dL Red Cell Distribution Width 15.1 H 11.8-14.3 % Platelet Count 171 140-450 10^3/uL Mean Platelet Volume 7.5 6.9-10.8 fL Neutrophils (%) (Auto) 57.4 37.0-80.0 % Lymphocytes (%) (Auto) 12.2 10.0-50.0 % Monocytes (%) (Auto) 17.3 H 0.0-12.0 % Eosinophils (%) (Auto) 11.8 H 0.0-7.0 % Basophils (%) (Auto) 1.3 0.0-2.0 % Neutrophils # (Auto) 3.4 1.6-8.6 10 ^3/uL Lymphocytes # (Auto) 0.7 0.4-5.4 10 ^3/uL Monocytes # (Auto) 1.0 0-1.3 10 ^3/uL Eosinophils # (Auto) 0.7 0-0.8 10 ^3/uL Basophils # (Auto) 0.1 0-0.2 10 ^3/uL Nucleated Red Blood Cells 0.0 % Sodium Level 136 136-145 mmol/L Potassium Level 4.1 3.5-5.1 mmol/L Chloride Level 101 98-107 mmol/L Carbon Dioxide Level 27 20-31 mmol/L Anion Gap 8 5-15 Blood Urea Nitrogen 22 9-23 mg/dL Creatinine 2.05 H 0.700-1.30 mg/dL Glomerular Filtration Rate Calc 39 >90 mL/min BUN/Creatinine Ratio 10.7 10.0-20.0 Serum Glucose 105 74-106 mg/dL Calcium Level 9.5 8.7-10.4 mg/dL Magnesium Level 1.9 1.6-2.6 mg/dL Total Bilirubin 1.1 H 0.2-1.0 mg/dL Aspartate Amino Transferase (AST) 28 13-40 U/L Alanine Aminotransferase (ALT) 14 7-40 U/L Alkaline Phosphatase 387 H 46-116 U/L Total Protein 8.0 5.7-8.2 g/dL Albumin 4.0 3.2-4.8 g/dL Current Medications Medications (Trade) Dose Ordered Sig/Pete Route Start Time Stop Time Status Last Admin Levetiracetam (Keppra Tablet) 1,500 mg ONCE ONCE PO 12/27/24 02:15 12/27/24 02:16 DC 12/27/24 02:23 Acetaminophen/ Hydrocodone Bitart ([place] 5/325MG Tab) 2 tab ONCE ONCE PO 12/27/24 05:15 12/27/24 05:16 DC 12/27/24 05:16 Time of 1ST Reevaluation: 02:40 Reevaluation 1ST: Unchanged Patient Education/Counseling: Diagnosis, Treatment, Prognosis Family Education/Counseling: No Family Present Additional Information The following tests were ordered, and results were reviewed by me: CBC, CMP, MAGNESIUM, EKG Additional Information was gathered from interviewing the following independent historians: EMS I discussed treatment and results with medical personnel and: Patient Comprehensive systems review obtained and negative except for what is stated in the HPI. Departure 1 Departure Time of Disposition: 03:30 Impression: Primary Impression: Seizure Additional Impressions: Seizure disorder Migraine Disposition: 01 HOME / SELF CARE / HOMELESS Condition: Stable e-Prescriptions Zonisamide (Zonisamide) 50 Mg Cap 50 MG PO DAILY for 60 Days, #60 CAP 5 Refills Prov: JESSICA SAMUEL MD 12/27/24 Zonisamide (Zonisamide) 50 Mg Cap 50 MG PO DAILY for 60 Days, CAP 5 Refills Prov: JESSICA SAMUEL MD 12/27/24 Discharged With: Self Critical Care Note Critical Care Time?: No Stability Stability form required: No I personally scribed for JESSICA SAMUEL MD ([email or web address]) on 12/27/24 at 02:22. Electronically submitted by Stephanie Michelle ([email or web address]). I personally scribed for JESSICA SAMUEL MD ([email or web address]) on 12/27/24 at 02:40. Electronically submitted by Stephanie Michelle ([email or web address]). JESSICA SAMUEL MD Dec 27, 2024 02:22
[2024-12-27 02:23] VITALS: BP 111/70; PULSE 101; RESP 19; TEMP 98.9; O2SAT 99
[2024-12-27] MEDS: levETIRAcetam 500 MG TAB PO ONE (02:23)
[2024-12-27 02:27] LABS: Basophils # (auto) 0.1 10 ^3/uL (0-0.2); Basophils % (auto) 1.3 % (0.0-2.0); Eosinophils # (auto) 0.7 10 ^3/uL (0-0.8); Eosinophils % (auto) 11.8 % (0.0-7.0); Hematocrit 29.8 % (41.0-53.0); Lymphocytes # (auto) 0.7 10 ^3/uL (0.4-5.4); Lymphocytes % (auto) 12.2 % (10.0-50.0); Mean Corpuscular Hemoglobin 30.5 pg (28.0-32.0); Mean Corpuscular Hgb Conc. 33.7 g/dL (32.0-36.0); Mean Corpuscular Volume 90.6 fL (80.0-100.0); Monocytes % (auto) 17.3 % (0.0-12.0); Neutrophils # (auto) 3.4 10 ^3/uL (1.6-8.6); Neutrophils % (auto) 57.4 % (37.0-80.0); Platelet Count (auto) 171 10^3/uL (140-450); Red Blood Cells 3.29 10^6/uL (4.5-5.90); Red Cell Distribution Width 15.1 % (11.8-14.3); White Blood Cell 5.9 10^3/uL (4.4-10.8)
[2024-12-27 02:51] LABS: Alanine Aminotransferase 14 U/L (7-40); Anion Gap 8 (5-15); Aspartate Aminotransferase 28 U/L (13-40); BUN/Creatinine Ratio 10.7 (10.0-20.0); Bilirubin, Total 1.1 mg/dL (0.2-1.0); Blood Urea Nitrogen 22 mg/dL (9-23); Calcium 9.5 mg/dL (8.7-10.4); Carbon Dioxide 27 mmol/L (20-31); Chloride 101 mmol/L (98-107); Glucose 105 mg/dL (74-106); Magnesium 1.9 mg/dL (1.6-2.6); Potassium 4.1 mmol/L (3.5-5.1)
[2024-12-27 03:19] LABS: Alkaline Phosphatase 387 U/L (46-116); Sodium 136 mmol/L (136-145)
[2024-12-27] MEDS ORDERED: ZONI50CA PO (03:49)
[2024-12-27] MEDS: ACETAMINOPHEN 325 MG TAB PO ONE (05:06)
[2024-12-27] MEDS: HYDROcodone-ACET 5/325MG TAB PO ONE (05:16)
== END 2024-12-27 05:20 | disposition home or self-care (01) ==
LOC: EDBD 01:53 → ER 01:53
DX: G40.909 Epilepsy, unspecified, not intractable, without status epilepticus (principal); G43.909 Migraine, unspecified, not intractable, without status migrainosus; I12.0 Hypertensive chronic kidney disease with stage 5 chronic kidney disease or end stage renal disease; N18.6 End stage renal disease; E11.22 Type 2 diabetes mellitus with diabetic chronic kidney disease; Z86.73 Personal history of transient ischemic attack (TIA), and cerebral infarction without residual deficits; Z79.899 Other long term (current) drug therapy; Z88.6 Allergy status to analgesic agent
CPT/HCPCS: 36415; 80053; 83735; 85025